=== PATIENT | female | born 1950 | race Hispanic/Latino ===

== ENCOUNTER 2017-05-29 09:00 | Day surgery (SDC) | payer OTHER ==
[2017-05-26 14:23] LABS: Urine Appearance CLEAR; Urine Bilirubin NEGATIVE (NEG); Urine Blood NEGATIVE (NEG); Urine Color YELLOW; Urine Glucose NEGATIVE (NEG); Urine Protein NEGATIVE (NEG); Urine Specific Gravity 1.015 (1.005-1.030); Urine Urobilinogen 0.2 mg/dL (0.2-1.0)
[2017-05-26 14:26] LABS: Urine Microscopic Reflex NO UMIC
[2017-05-26 14:36] LABS: Absolute Monocytes 0.7 K/uL (0.1-1.3); Absolute Neutrophil 7.6 K/uL (1.8-8.0); Basophils % 0.6 % (0-1.3); Eosinophils % 0.8 % (0-4.4); Hematocrit 42.6 % (36.0-45.0); Lymphocytes % 25.9 % (15.3-44.8); MCH 28.8 pg (27.0-35.0); MCV 88.6 fL (80-100); MPV 10.2 fL (7.6-11.3); Monocytes % 6.3 % (3.3-12.3)
[2017-05-26 14:45] LABS: Potassium 3.7 mEq/L (3.6-5.0)
[2017-05-29] MEDS ORDERED: NA CHLORIDE 0.9% 1,000 ML ONE ×3 (09:50→17:57)
[2017-05-29] MEDS ORDERED: PROPOFOL 200 MG/20 ML VIAL IV ONE ×2 (11:03→15:23)
[2017-05-29] MEDS ORDERED: MIDAZOLAM HCL 2 MG/2 ML INJ ONE (11:03)
[2017-05-29] MEDS ORDERED: LIDOCAINE 2% MPF 5 ML VIAL ONE (11:04)
[2017-05-29] MEDS ORDERED: ONDANSETRON 4 MG/2 ML VIAL ONE ×2 (11:04→16:32)
[2017-05-29] MEDS ORDERED: GLYCOPYRROLATE 0.2 MG/ML SYR ONE (11:04)
[2017-05-29] MEDS ORDERED: ROCURONIUM 50 MG/5 ML VIAL IV ONE ×2 (11:04→15:22)
[2017-05-29] MEDS ORDERED: FENTANYL CITR 250 MCG/5 ML ONE (11:04)
[2017-05-29] MEDS: CEFAZOLIN/SWI 1gm 2 GM/20 ML SYR ONE ×3 (11:33→13:25)
[2017-05-29] MEDS ORDERED: NA CHLORIDE 0.9% 100 ML IV ONE (13:11)
[2017-05-29] MEDS ORDERED: VASOPRESSIN 20 UNIT/ML VIAL ONE (13:11)
[2017-05-29] MEDS ORDERED: CEFAZOLIN/SWI 1gm 1 GM/10 ML SYR ONE (13:11)
[2017-05-29] MEDS ORDERED: EPHEDRINE SULF 50 MG/5 ML SYR ONE (14:08)
[2017-05-29] MEDS ORDERED: NEOSTIGMINE 1 MG/ML -5 ML SYRINGE ONE (14:18)
[2017-05-29] MEDS ORDERED: DEXAMETHASONE 10 MG/ML VIAL ONE (15:19)
[2017-05-29] MEDS ORDERED: KETOROLAC 30 MG/ML INJ ONE (15:20)
[2017-05-29] MEDS ORDERED: MEPERIDINE HCL 25 MG/0.5 ML ONE (16:00)
[2017-05-29] MEDS ORDERED: CEFAZOLIN SODIUM 1 GM/VIAL ONE (16:14)
[2017-05-29] MEDS: MEPERIDINE HCL 50 MG/ML AMP ONE ×2 (16:16→16:22)
[2017-05-29] MEDS ORDERED: PROMETHAZINE 25 MG/ML VIAL ONE (16:43)
[2017-05-29] MEDS ORDERED: ACETAMINOPHEN 325 MG TABLET PO PRN (16:49)
[2017-05-29] MEDS ORDERED: MORPHINE 4 MG/ML SYR IV PRN ×3 (16:49→17:00)
[2017-05-29] MEDS ORDERED: PROMETHAZINE 25 MG/ML VIAL IV PRN (16:51)
[2017-05-29] MEDS ORDERED: PROMETHAZINE 25 MG TABLET PO PRN (16:52)
[2017-05-29] MEDS ORDERED: MEPERIDINE HCL 50 MG/ML AMP ONE (17:20)
[2017-05-30] MEDS ORDERED: CEFAZOLIN/SWI 1gm 1 GM/10 ML SYR IV SCH
[2017-05-30 06:20] LABS: Absolute Lymphocytes (CBC) 2.1 K/uL (0.7-4.9); Absolute Monocytes 1.1 K/uL (0.1-1.3); Absolute Neutrophil 14.3 K/uL (1.8-8.0); Basophils % 0.6 % (0-1.3); Eosinophils % 0.7 % (0-4.4); Hematocrit 36.3 % (36.0-45.0); MCH 29.2 pg (27.0-35.0); MCV 88.7 fL (80-100); MPV 10.2 fL (7.6-11.3); Monocytes % 6.1 % (3.3-12.3); RBC Red Blood Cell Count 4.09 M/uL (3.86-4.86)
[2017-05-30] MEDS ORDERED: CEFAZOLIN SODIUM 1 GM/VIAL ONE (07:26)
[2017-05-30] MEDS ORDERED: NS 0.9% VIAL 10 ML ONE (07:26)
--- NOTE | 2017-09-08 11:00 | OP ---
Date of Procedure: 05/29/2017 Surgeon: Rosibel Santo MD Section Supervisor: Eliz Santa and Tana Brady. Preoperative Diagnoses: Uterine prolapse, rectocele, posterior enterocele, perineocele, stress urina ry incontinence. Postoperative Diagnoses: Uterine prolapse, rectocele, posterior enterocele, perineocele, stress urin omero incontinence. Procedures Performed: Right sacrospinous ligament fixation with cervicopexy/colpopexy, posterior ent erocele repair and rectocele repair, perineorrhaphy, and mid urethral sling (TVT-O and cystoscopy). Anesthesia: General endotracheal. Specimens: None. Complications: None. Estimated Blood Loss: 200. Condition: Stable. Findings: POP-Q -2, -2, -4 to 5, thin and 7, 0, +1 and -3. The patient had dense scar in the generation technologist ior wall, especially in the lower one-third on the left. The perineum was thin and widened showing a perineocele. Defect in the posterior wall was mostly in the lower aspect, lower one-third, however there was an enterocele as well. The patient had coughed and there was a bowel movement that was cleaned up and this was at the time o f the posterior repair. The patient is a 67-year-old with problems as dictated above and she did not have any postmenopausal bleeding, did not have any prior repairs. She just had obstetric injury for which she had repair at the time of delivery. Description Of Procedure: After informed consent was verified, the patient was taken back to the OR. She was given 1 g of Ancef, placed in a supine fashion on the operating table. After general anest hesia was given, she was placed in a dorsal lithotomy position using Laci stirrups. After positioni ng was checked, pelvic exam was performed, and POP-Q as above, lower abdomen, vulva, vagina, and gianni neum were prepped and draped in a sterile fashion. Grimaldo placed to drain the bladder and clamped and retracted superiorly. Two Allis clamps were placed on either side of the vestibule and the posterior midline vaginal wall t o the apex was clamped onto the cervix. Sacral spine and ischial spines were palpated prior to the s tart of the procedure and the right one was marked coming in freely and easily palpable. Dilute vasopressin 20 units in 50 cc of normal saline was injected in the perineum and the posterior midline vaginal wall. A triangular skin incision made with the scalpel, 15 blade and excised. The p osterior compartment was attempted to be accessed. However, due to the dense scar, it was not possib le easily with the help of Metzenbaum scissors, so the 15 blade was used to make the incision slightl y onto the right of the scar. Then, once the right-sided vaginal epithelium was dissected free and t he rectovaginal space was entered after passing the perineocele, then the vaginal epithelium on the l eft side was picked up after placing finger on the rectum and making sure that the thickness was appr opriate and dissection was performed dissecting the scar away from the posterior wall. There was no evidence of any rectovaginal septum in the area of this defect on the scar. So, once I went past thi s and all the vestibular posterior incision was opened up, then rectovaginal septum appeared to be in tact in the upper half of the two-thirds to half of the defect. However, due to the dissection part of it was injured as well, so I took the incision all the way up to dissect the vaginal epithelium fr om the rectovaginal septum, then on both sides all the way to the lateral wall. The bowel movement w as seen here at this time, so this was all cleaned up, reprepped adequately. Then, the right sacrosp inous ligament was dissected by accessing the perirectal space, then dissecting the ischial spine and through the medial and posterior to the ischial spine towards the coccyx, the coccygeus muscle was d issected to expose the sacrospinous ligament. Once this was done, the posterior enterocele was close d with the help of a pursestring 0 Vicryl suture. The cervix was used to identify the remnants of th e uterosacral ligament posteriorly and 2 Allis clamps were placed here. The rectovaginal septum was repaired with the help of 2-0 Vicryl in a continuous running fashion as far as there was no tension. Then, in the lowest part, it was closed with the help of 2-0 Vicryl in an interrupted fashion. Then , the perineum was dissected and the lateral aspects of the transverse perinei on the scar were broug ht together with 2-0 Vicryl in an interrupted horizontal mattress fashion. With the finger in the re ctum, 3 stitches were placed to bring this back together without getting the levators. These were al l tied down after gloves were changed. Then, I went down to the top to finish the colpopexy. The Ca raz suture was taken and lowered onto the Capio device. First suture was placed medially about 2.5 c m medial to the ischial spine on the sacrospinous ligament. Another suture of the same kind 1 cm lat eral to it. Good bites into the sacrospinous ligament were taken and these sutures were attached to the distal uterosacral on both sides and then left attached to clamps. The posterior vaginal wall cl osure was started with a 2-0 Vicryl in a continuous running fashion for about 3 cm. Then, slight tri mming of the vaginal epithelium was done. There was excellent posterior support including the perine al body support after the reconstruction. Then, the sacrospinous ligament stitches were tied down fr om the uterus all the way down to the sacrospinous ligament without any suture bridge. Once both sti tches were tied down and tails trimmed, the posterior vaginal closure was completed. Then, the perin eal skin incision was closed with the help of a 3-0 Vicryl in a subcutaneous and subcuticular fashion and tying the stitch inside the perineum. Rectovaginal exam was performed and no evidence of any tr auma to the rectum. Cystoscopy was performed and no evidence of any ureteric obstruction on the right. There were strong jets of urine from both sides. Bladder unremarkable. Grimaldo was replaced. All gloves were changed. The posterior area was completely draped. Then, the m id urethral area was held with 2 Allis clamps after placing the legs in lithotomy. Skin markings wer e done 2 cm lateral and 1 cm superior to the horizontal line dropped at the level of the external pino tus in the groin folds. Dilute vasopressin was injected, 10 cc in the midline and lateral aspects. Skin incision was made with the scalpel and flaps raised for creating a tunnel for the sling. At a 4 5-degree angle to the horizontal and vertical planes, dissection was carried to the ipsilateral shoul fozia and hugging the posterior ramus of the pubis. Obturator space was entered. Once the pop was fel t, the tract was opened up to create passage for the sling. Similar dissection was performed on the opposite side. First on the right, then on the left. Then, the kit was opened and wing guide was pl aced, retracing the tract created and spike passed without any problems. Similar dissection was perf ormed on the opposite side and the spike passed without any problems exiting at the point expected. The plastic trocars were cut. Sheaths along with the sling were held with Olivia clamps. Tensioning of the mid urethral portion was done with the help of Metzenbaum scissors. Once the plastic sheaths were pulled out, the tensioning was adequate. Metzenbaum scissors removed. After the mesh was casimiro ed and flushed, skin incisions closed with the help of Dermabond and the vaginal incision closed with the help of 3-0 Vicryl in a continuous running horizontal mattress fashion. Cysto was performed. No evidence of any trauma or foreign body in the bladder. The bladder was drai hari. Grimaldo was replaced. Vaginal packing was placed. The patient was recovered from anesthesia and she was taken to the PACU for overnight observation. NANCY/SYLVIA Voice ID: [id number] Report ID: [id number]
== END 2017-05-30 11:35 | disposition home or self-care (01) ==
LOC: OR 09:00 → 2ND-WC 18:12 → OR 18:12
PROVIDERS: ATTEND Obstetrics & Gynecology
PROC: 0JQC0ZZ Repair Pelvic Region Subcutaneous Tissue and Fascia, Open Approach (ICD-10-PCS; 2017-05-29)
PROC: 0WQNXZZ Repair Female Perineum, External Approach (ICD-10-PCS; 2017-05-29)
PROC: 0TSD0ZZ Reposition Urethra, Open Approach (ICD-10-PCS; 2017-05-29)
PROC: 0USG7ZZ Reposition Vagina, Via Natural or Artificial Opening (ICD-10-PCS; principal; 2017-05-29 10:30)
DX: N81.2 Incomplete uterovaginal prolapse (principal); N39.3 Stress incontinence (female) (male); N95.2 Postmenopausal atrophic vaginitis; E11.9 Type 2 diabetes mellitus without complications; I10 Essential (primary) hypertension; K21.9 Gastro-esophageal reflux disease without esophagitis; M06.9 Rheumatoid arthritis, unspecified; E78.00 Pure hypercholesterolemia, unspecified; Z79.82 Long term (current) use of aspirin; Z88.0 Allergy status to penicillin; Z90.49 Acquired absence of other specified parts of digestive tract; Z80.42 Family history of malignant neoplasm of prostate; Z80.0 Family history of malignant neoplasm of digestive organs; Z82.49 Family history of ischemic heart disease and other diseases of the circulatory system
CPT/HCPCS: 36415 ×2; 57250; 57282; 57288; 80048; 81003; 82962 ×2; 85025 ×2; 86850; 86900; 86901; J0690 ×4; J1100; J2175 ×3; J2250; J2405 ×2; J2550; J2710; J7030 ×3

== ENCOUNTER 2019-07-25 16:18 | Emergency (ER) | payer OTHER ==
--- OUTSIDE RECORDS SUMMARY | 2019-07-25 16:20 | XMS REPORT ---
:1950 Author Organization [facility] t Address [address] [place] [address] Dr. [address] [place] [address] Care Team Providers Name Role Phone Unavailable Unavailable Unavailable Problems Condition Condition Condition Status Onset Resolution Last Treating Co mments Source Name Details Category Date Date Treatment Clinician Date Rheumatoid Rheumatoid Problem Active [facility] arthritis Arthritis 5-04 Fami ly 00:00: Practic 00 e Hyperlipid Hyperlipid Problem Active [facility] emia emia 7-11 Family 00:00: Practic 00 e Essential Essential Problem Active Loida belkys hypertensi Hypertensi 7-11 Fa mai on on 00:00: Practic 00 e Gastroesop Gastroesop Problem Active [facility] hageal hageal 7-11 Family reflux Reflux 00:00: Practic disease Disease 00 e Allergies, Adverse Reactions, Alerts Allergy Allergy Status Severity Reaction(s) Onset Inactive Treating Comm ents Source Name Type Date Date Clinician PENICILL Allergy Active Mild to Hives [facility] INS to moderate Family substanc Practic e e Social History Smoking Status Start Date Stop Date Source Never Smoker [facility] Medications Ordered Filled Start Stop Current Ordering Indication Dosage Frequency Signature Comments Components Source Medication Medication Date Date Medication? Clinician (SIG) Name Name aspirin 81 aspirin 81 No 1 Q1D aspirin 81 [facility] mg mg mg Family tablet,estefany tablet,estefany tablet,del Practic yed release yed release ayed e Take 1 Take 1 release tablet tablet Take 1 every day every day tablet by oral by oral every day route. route. by oral route. carvedilol carvedilol No 1 BID carvedilol [facility] 6.25 mg 6.25 mg 6.25 mg Family tablet Take tablet Take tablet Practic 1 tablet 1 tablet Take 1 e twice a day twice a day tablet by oral by oral twice a route. route. day by oral route. cinacalcet cinacalcet No 1 Q1D cinacalcet [facility] 60 mg 60 mg 60 mg Family tablet Take tablet Take tablet Practic 1 tablet 1 tablet Take 1 e every day every day tablet by oral by oral every day route. route. by oral route. losartan 25 losartan 25 No 1 Q1D losartan [facility] mg tablet mg tablet 25 mg Fami ly Take 1 Take 1 tablet Pract[facility] tablet tablet Take 1 e every day every day tablet by oral by oral every day route. route. by oral route. multivitami multivitami No 1capsul Q1D multivitam [facility] n capsule n capsule e(s) in capsule Family Take 1 Take 1 Take 1 Practic capsule capsule capsule e every day every day every day by oral by oral by oral route. route. route. omeprazole omeprazole No 1capsul Q1D omeprazole [facility] 40 mg 40 mg e(s) 40 mg Family capsule,del capsule,del capsule,de Practic ayed ayed layed e release release release Take 1 Take 1 Take 1 capsule capsule capsule every day every day every day by oral by oral by oral route. route. route. simvastatin simvastatin No 1 Q1D simvastati [facility] 40 mg 40 mg n 40 mg Family tablet Take tablet Take tablet Pract[facility] 1 tablet 1 tablet Take 1 e every day every day tablet by oral by oral every day route. route. by oral route. sucralfate sucralfate No 1 QID sucralfate [facility] 1 gram 1 gram 1 gram Family tablet Take tablet Take tablet [facility] 1 tablet 4 1 tablet 4 Take 1 e times a day times a day tablet 4 by oral by oral times a route. route. day by oral route. Immunizations Ordered Immunization Filled Immunization Date Status Commen ts Source Name Name influenza, influenza, 2018-12-[address] [place] [place] injectable, injectable, 00:00:00 Practice quadrivalent quadrivalent influenza, influenza, 2017-12-08 [place] [facility] [place] injectable, injectable, 00:00:00 Practice quadrivalent quadrivalent Vital Signs Vital Name Observation Time Observation Value Comments Source Height 2019-07-12 00:00:00 67 [in_i] [facility] BMI (Body Mass 2019-07-12 00:00:00 28.7 kg/m2 [facility] Family Index) Practice Body Weight 2019-07-12 00:00:00 183 [lb_av] [facility] Procedures Procedure Date / Time Performed Performing Clinician Sourc e Appendectomy [facility] P veronica Cholecystectomy [facility] Kaitlin martin Plan of Care Planned Activity Planned Date Details Comments Source Instructions [facility] Encounters Start End Encounter Admission Attending Care Care Encounter Source Date/Time Date/Time Type Type Clinicians Facility Department ID 2019-07-12 2019-07-12 Zaina [facility] [place] - [id number] [facility] 00:00:00 00:00:00 [facility] haley tsang [employer] SUPERVISOR: Medical - Practi c [email or web address], [address] [address], [place] [address] , Ph. Results This patient has no known results.
--- OUTSIDE RECORDS SUMMARY | 2019-07-25 16:20 | XMS REPORT | Encounter Summary ---
:1950 Author Care Team Providers Name Role Phone Dr. Julio iKm Primary Care Provider Unavailable Herman Bacon Primary Care Provider [phone] Reason for Visit TELE-AWV Annual Wellness Visit Female Instructions 1. Advance directive discussed w ith patient advance care planning: car e instructions 2. Depression screening learning about depression 3. Essential hypertension carvedilol 6.25 mg tablet losartan 25 mg tablet 4. Gastroesophageal reflux disea se omeprazole 40 mg capsule,d elayed release sucralfate 1 gram tablet 5. Hyperlipidemia high cholesterol: care ins tructions simvastatin 40 mg tablet Discussion Note Completed a telephone visit with shruthi greenfield. Patient report he has enough meds currently and does not need any refills. Patient encouraged to wash hands frequently for 20 seconds, practice social distanci ng by stay home and maintaining physical space in public. Patient encouraged to [facility] if he starts having continues cough, fever and sob. Patient verbalized understanding. Plan of Care Patient Instructions It was good to speak with you parveen pichardo today for your Medicare Annual Wellness Visit. You have been provided some information on healthy nutrition, including a diet rich in fruits and vegetables, minimizing simple carbohydrates, salt, and saturated fats. I want to encourage regular cardiovascular exercise such as walking at least 30 minutes daily, 5 times per week. Please remember to schedule any prevent vipin health measures that we talked about today. You have also been provided education on fall prevention and community- based lifestyle interventions to help reduc e health risks and promote healthy livin g in your Annual Wellness folder. Screening Recommendations 1. Vaccines Pneumonia: Recommended toda y Influenza: Recommended today 2. Mammography Screening: Next Screening 3. Colorectal Cancer Screening: Colonoscopy (every 10 years) Recommended today 4. Annual D epression Screening 5. Annual Alcohol Sc reening 6. Annual Fall Risk Screening 7. Annual Health Risk Assessment Reminders Provider Appointments None recorded. Lab None recorded. Referral None recorded. Procedures None recorded. Surgeries None recorded. Imaging None recorded. Medications Name Start Date aspirin 81 mg tablet,delayed release Take 1 tablet every day by oral route. carvedilol 6.25 mg tablet Take 1 tablet twice a day by oral route. cinacalcet 60 mg tablet Take 1 tablet every day by oral route. losartan 25 mg tablet Take 1 tablet every day by oral route. multivitamin capsule Take 1 capsule every day by oral route. omeprazole 40 mg capsule,delayed release Take 1 capsule every day by oral route. simvastatin 40 mg tablet Take 1 tablet every day by oral route. sucralfate 1 gram tablet Take 1 tablet 4 times a day by oral route. Medications Administered None recorded. Vitals Height Weight BMI 5 ft 7 in 183 lbs 28.7 kg/m2 Results Lab Results None recorded. Allergies Code Code System Name Reaction Severity Status Onset Penicillins Hives Mild to Active Moderate Problems Name Status Onset Date Source Hyperlipidemia Active 09/17/2018 Essential Hypertension Active 09/17/2018 Gastroesophageal Reflux Disease Active 09/17/2018 Rheumatoid Arthritis Active 07/12/2019 Procedures Date Name Performed by Appendectomy Information not avai lable Cholecystectomy Information not avai lable Vaccine List Vaccine Type influenza, injectable, quadrivalent 12/08/2017 12/08/2018 Social History Tobacco Smoking Status Never Smoker Past Encounters 07/12/2019 Advance Directive Discussed with Patient ; Depression Screening; Essential Hypertension; Gastroesophageal Reflux Disease; Hyperlipidemia Zaina Perkins, VENDING MACHINE MECHANIC: [address] [facility], [address], [place] [address], Ph. History of Present Illness Mini Cog Reported By: Patient Functional Ability: Personal/Social/ 3 word reca ll: Your nurse or doctor will ask you to remember 3 words. In 5 m inutes, they will ask you to repeat them. Patient recalled 3 w ords Opioid Use Assessment Reported By: Patient Opioid Use Assessment:: Current Use of Opioids : no use of opioids (no further questions required) Note: I confirmed that I received verbal consent from the patient for a telemedicine visit.
This virtual visit was performed with live video and audio. Review of Systems Comprehensive General Adult ROS Reported By: Patient Constitutional: Constitutional: no fever, no night sweats, no significant weight gain, no significant weight loss, no exercise intolerance Eyes: Eyes: no dry eyes, no vision change, no irritation ENMT: Ears: no difficulty hearing, no ear pain. Nose: no frequent nosebleeds, no nose problems , no sinus problems. Mouth/Throat: no sore throat, no bleeding gums, no snoring, no dry mouth, no mouth ulcers, no oral abnorm alities, no teeth problems Cardiovascular: Cardiovascular: no chest portillo n, no arm pain on exertion, no shortness of breath when wal jesenai, no shortness of breath when lying down, no palpitations, no known heart murmur, no lightheadedness Respiratory: Respiratory: no cough, no wh eezing, no shortness of breath, no coughing up blood, no sleep apnea Gastrointestinal: Gastrointestinal: no abdomin al pain, no nausea, no vomiting, no constipation, normal appe tite, no diarrhea, not vomiting blood, no dyspepsia, no GERD Genitourinary: Genitourinary: no incontinen ce, no difficulty urinating, no hematuria, no increased freq uency Musculoskeletal: Musculoskeletal: no muscle a ches, no muscle weakness, no arthralgias/joint pain, no b ack pain, no swelling in the extremities Integumentary: Skin: no abnormal mole, no j aundice, no rashes, no laceration Neurologic: Neurologic: no loss of consc iousness, no weakness, no numbness, no seizures, no di zziness, no migraines, no headaches, no tremor Psychiatric: Psych: no depression, no sle ep disturbances, feeling safe in a relationship, no alcohol abu se, no anxiety, no hallucinations, no suicidal thoughts Endocrine: Endocrine: no fatigue Hematologic/Lymphatic: Hematologic/Lymphatic no swo llen glands, no bruising, no excessive bleeding Allergic/Immunologic: Allergy/Immunologic: no runn y nose, no sinus pressure, no itching, no hives, no freque nt sneezing Physical Exam General Adult Exam (Female) Reported By: Patient Constitutional: General Appearance: healthy- appearing, well-nourished, well-developed. Level of Dis tress: NAD. Ambulation: ambulating normally Psychiatric: Insight: good judgement. Men preeti Status: active and alert, normal mood, normal affect. Orienta tion: to time, to place, to person. Memory: recent memory normal , remote memory normal Head: Head: normocephalic, atrauma tic Eyes: Lids and Conjunctivae: non-i njected, no discharge, no pallor. Pupils: PERRLA. EOM: EOMI. V ision: peripheral vision grossly intact, acuity grossly intac t ENMT: Ears: no lesions on external ear, EACs clear, TMs clear, TM mobility normal. Hearing: no hearing loss. Nose: no lesions on external nose Neck: Neck: supple, trachea midlin e, no masses, FROM. Lymph Nodes: no cervical LAD, no supraclavic ular LAD, no axillary LAD. Thyroid: no enlargement, non-tender, no nodules Lungs: Respiratory effort: no dyspn ea. Percussion: no dullness, flatness, or hyperresonance. Auscultat ion: breath sounds normal, good air movement, CTA except as note d, no wheezing, no rales/crackles, no rhonchi Cardiovascular: Heart Auscultation: RRR, nor mal S1, normal S2, no murmurs, no rubs, no gallops. Neck vessels: no carotid bruits. Pulses including femoral / pedal: normal thro ughout Abdomen: Bowel Sounds: normal Musculoskeletal:: Motor Strength and Tone: nor mal motor strength, normal tone. Joints, Bones, and Muscles: normal movement of all extremities, no bony abnormalities, no contr actures, no malalignment, no tenderness. Extremities: no cyanosis, no edema, no varicosities, no palpable cord Neurologic: Gait and Station: normal gai t, normal station Skin: Inspection and palpation: no rash, no lesions, no ulcer, good turgor
[2019-07-25] MEDS ORDERED: MAGNE/ALUM HYDROXD 30 ML UCUP ONE (17:02)
[2019-07-25] MEDS ORDERED: FAMOTIDINE 20 MG/2 ML VIAL IV ONE (17:02)
[2019-07-25] MEDS ORDERED: LIDOCAINE VISCOUS 2% SOLN 15 ML UDC ONE (17:03)
[2019-07-25 17:38] LABS: Absolute Lymphocytes (CBC) 2.5 K/uL (0.7-4.9); Hematocrit 39.4 % (36.0-45.0); MPV 9.6 fL (7.6-11.3); RBC Red Blood Cell Count 4.47 M/uL (3.86-4.86)
[2019-07-25 17:51] LABS: Albumin 3.5 g/dL (3.4-5.0); Bilirubin Direct 0.1 mg/dL (0-0.2); Bilirubin Total 0.4 mg/dL (0.2-1.0); Potassium 3.3 mmol/L (3.5-5.1); Protein, Total 7.1 g/dL (6.4-8.2)
--- NOTE | 2019-07-25 17:55 | RAD REPORT ---
EXAM DESCRIPTION: CT - Abdomen Pelvis W Contrast - 07/25/2019 5:41 pm CLINICAL HISTORY: Abdominal pain COMPARISON: 2014 TECHNIQUE: Computed axial tomography of the abdomen pelvis was obtained. 100 cc Isovue-300 was admin istered intravenously. Oral contrast was not requested which limits evaluation of bowel. All CT scans are performed using dose optimization technique as appropriate and may include automated exposure control or mA/KV adjustment according to patient size. FINDINGS: The liver, spleen, pancreas, adrenal and left kidney appear unremarkable. Small right inés l cysts Large number of diverticula without evidence of diverticulitis. The appendix is not visualized. Cholecystectomy. The infrarenal abdominal aorta is ectatic with AP diameter of 2.8 centimeters Moderate left posterolateral structure L5-S1 extending inferiorly IMPRESSION: Moderate left posterolateral structure L5-S1 extending inferiorly may represent a disc e xtrusion. Further evaluation with nonemergent MRI recommended. Diverticulosis without evidence of diverticulitis
--- NOTE | 2019-07-25 18:09 | EDPHYS ---
Physician Documentation [facility] Name: Hannah Wick Age: 68 yrs Sex: Female : 1950 Arrival Date: 07/25/2019 Time: 16:22 Bed 15 Private MD: ED Physician Wenceslao Liang HPI: 07/24 17:07 This 68 yrs old Female presents to ER via Unassigned with complaints of rn Abdominal Pain, Vomiting. 17:07 The patient presents to the emergency department with nausea, vomiting, abdominal pain. rn Onset: The symptoms/episode began/occurred 12 day(s) ago. Possible causes: unknown. The symptoms are aggravated by food , The symptoms are alleviated by nothing. Severity of symptoms: At their worst the symptoms were moderate in the emergency department the symptoms have improved. The patient has not experienced similar symptoms in the past. The patient has been recently seen by a physician:. Reports had colonoscopy [address] Petty/Marcus, reports some polyps removed, a couple of days after begna having abd pain, seen at ER, given abx and sent home. Seen again at another ER a day or so later again for vomiting and sore throat, given abx again for pharyngitis, then seen by pcp a couple of days ago and told had thrush, given nystatin. No blood in stool or emesis. Taking antacid medication. No chest pain/sob. . Historical: - Allergies: 18:16 PENICILLINS; ls4 - Immunization history:: Adult Immunizations up to date. - Family history:: not pertinent. - Social history:: Smoking status: Patient denies any tobacco usage or history of. - Hospitalizations: : No recent hospitalization is reported. ROS: 17:07 Constitutional: Negative for fever, chills, and weight loss, Eyes: Negative for injury, rn pain, redness, and discharge, Neck: Negative for injury, pain, and swelling, Cardiovascular: Negative for chest pain, palpitations, and edema, Respiratory: Negative for shortness of breath, cough, wheezing, and pleuritic chest pain, Abdomen/GI: Negative for diarrhea, + constipation, MS/Extremity: Negative for injury and deformity, Skin: Negative for injury, rash, and discoloration, Neuro: Negative for headache, numbness, tingling, and seizure. Exam: 17:07 Constitutional: This is a well developed, well nourished patient who is awake, rn alert,ambulatory to room without difficulty or assistance Head/Face: Normocephalic, atraumatic. Cardiovascular: Regular rate and rhythm. No pulse deficits. Respiratory: No increased work of breathing, no retractions or nasal flaring. Abdomen/GI: soft, mild epigastric tenderness, no rebound Skin: Warm, dry MS/ Extremity: Pulses equal, no cyanosis. Neurovascular intact. Full, normal range of motion. Equal circumference. Neuro: Awake and alert, GCS 15, oriented to person, place, time, and situation. Cranial nerves II-XII grossly intact. Motor strength 5/5 in all extremities. Sensory grossly intact. Cerebellar exam normal. Normal gait. 18:10 ECG was reviewed by the Attending Physician. rn Vital Signs: 16:35 BP 167 / 98; Pulse 82; Resp 18; Temp 98.4; Pulse Ox 96% on R/A; Weight 82.55 kg; Height ls4 5 ft. 7 in. (170.18 cm); Pain 3/10; 17:30 BP 148 / 82; Pulse 78; Resp 18; Pulse Ox 99% on R/A; Pain 3/10; ls4 16:35 Body Mass Index 28.50 (82.55 kg, 170.18 cm) ls4 MDM: 16:36 Patient medically screened. rn 18:07 Differential diagnosis: Nonspecific abd pain, gastritis, pancreatitis, gastroenteritis. rn Data reviewed: vital signs, nurses notes, lab test result(s), EKG, radiologic studies, CT scan, and as a result, I will discharge patient. Counseling: I had a detailed discussion with the patient and/or guardian regarding: the historical points, exam findings, and any diagnostic results supporting the discharge/admit diagnosis, lab results, radiology results, the need for outpatient follow up, to return to the emergency department if symptoms worsen or persist or if there are any questions or concerns that arise at home. Response to treatment: the patient's condition has returned to base line, the patient is now symptom free, and as a result, I will discharge patient. Special discussion: I discussed with the patient/guardian in detail that at this point there is no indication for admission to the hospital. It is understood, however, that if the symptoms persist or worsen the patient needs to return immediately for re-evaluation. Based on the history and exam findings, there is no indication for further emergent testing or inpatient evaluation. I discussed with the patient/guardian the need to see the continuous improvement coach for further evaluation of the symptoms. ED course: Symptoms resolved after GI cocktail and pepcid, feels much better, no acute findings on ct abdomen, instructed to continue antacids and supplement with tums/maalox if needed and to f/u with GI doctor. Does not need to take the abx given as they likely made symptoms worse, but can continue the thrush medication recently prescribed. . 07/24 16:52 Order name: Basic Metabolic Panel; Complete Time: 17:53 rn 07/24 16:52 Order name: CBC with Diff; Complete Time: 17:53 rn 07/24 16:52 Order name: Hepatic Function; Complete Time: 17:53 rn 07/24 16:52 Order name: Lipase; Complete Time: 17:53 rn 07/24 16:52 Order name: CT Abd/Pelvis - IV Contrast Only; Complete Time: 17:57 rn 07/24 18:36 Order name: CREATININE WHOLE BLOOD; Complete Time: 18:43 EDMS 07/24 16:52 Order name: IV Saline Lock; Complete Time: 17:42 rn 07/24 16:52 Order name: Labs collected and sent; Complete Time: 17:42 rn 07/24 16:52 Order name: EKG; Complete Time: 16:53 rn 07/24 16:52 Order name: EKG - Nurse/Tech; Complete Time: 17:41 rn EC:10 Rate is 68 beats/min. Rhythm is regular. QRS [place] is Normal. [place] interval is normal. QRS rn interval is normal. QT interval is normal. No Q waves. T waves are Normal. No ST changes noted. Clinical impression: Normal ECG. Interpreted by me. Reviewed by me. Administered Medications: 17:10 Drug: GI Cocktail without - (Maalox Suspension 30 ml, Lidocaine Liquid 2 % 15 ls4 ml) Route: PO; 17:30 Follow up: Response: No adverse reaction; Marked relief of symptoms ls4 17:10 Drug: Pepcid 20 mg Route: IVP; Site: right antecubital; ls4 17:30 Follow up: Response: No adverse reaction; Marked relief of symptoms ls4 Disposition: 05/17/20 18:09 Discharged to Home. Impression: Gastritis, unspecified. - Condition is Stable. - Discharge Instructions: Abdominal Pain, Adult, Gastritis, Adult. - Prescriptions for Zofran ODT 4 mg Oral tablet,disintegrating - place 1 tablet by TRANSLINGUAL route every 8 hours As needed; 15 tablet. - Medication Reconciliation Form, Thank You Letter, Antibiotic Education, Prescription Opioid Use form. - Follow up: Private Physician; When: As needed; Reason: Recheck today's complaints, Re-evaluation by your physician. - Problem is new. - Symptoms have improved. Signatures: Dispatcher [employer] EDMS Wenceslao Liang MD MD rn Stewart, Lisa, RN RN ls4 Corrections: (The following items were deleted from the chart) 18:53 18:09 07/25/2019 18:09 Discharged to Home. Impression: Gastritis, unspecified. ls4 Condition is Stable. Forms are Medication Reconciliation Form, Thank You Letter, Antibiotic Education, Prescription Opioid Use. Follow up: Private Physician; When: As needed; Reason: Recheck today's complaints, Re-evaluation by your physician. Problem is new. Symptoms have improved. rn
--- NOTE | 2019-07-25 18:09 | ER ---
Nurse's Notes [facility] Name: Hannah Wick Age: 68 yrs Sex: Female : 1950 Arrival Date: 07/25/2019 Time: 16:22 Bed 15 Private MD: Diagnosis: Gastritis, unspecified Presentation: 07/24 16:35 Chief complaint: Patient states: ABDOMINAL PAIN SINCE COLONOSCOPY ON JULY 12. PT STATES ls4 DOCTOR TOLD HER HE REMOVED HALF HER COLON WITH CANCER. UPON FURTHER QUESTION THAT WAS CLARIFIED HE REMOVED POLYPS. PT STATES HER SISTER BROTHER AND MOTHER ALL OF CANCERS OF THE GI TRACT. PT IS IN NO ACUTE DISTRESS, BUT ADMITS TO ANXIETY. Coronavirus screen: Proceed with normal triage. Patient denies a cough. Patient denies shortness of breath or difficulty breathing. Patient denies measured and/or subjective temperature greater than 100.4F prior to today's visit. Patient denies travel on a cruise ship or to a country the [facility] currently lists as an affected area. Patient denies contact with known and/or suspected case of COVID-19. Ebola Screen: No symptoms or risks identified at this time. Initial Sepsis Screen: Does the patient meet any 2 criteria? No. Patient's initial sepsis screen is negative. Does the patient have a suspected source of infection? No. Patient's initial sepsis screen is negative. Risk Assessment: Do you want to hurt yourself or someone else? Patient reports no desire to harm self or others. Onset of symptoms was July 13, 2019. Care prior to arrival: None. Activity prior to arrival: None. 16:35 Method Of Arrival: Ambulatory ls4 16:35 Acuity: MAR[place] 3 ls4 Triage Assessment: 16:35 General: Appears in no apparent distress. Behavior is calm, cooperative. ls4 16:35 Pain: Complains of pain in abdomen Pain currently is 3 out of 10 on a pain scale. ls4 Neuro: No deficits noted. Cardiovascular: No deficits noted. Respiratory: No deficits noted. Historical: - Allergies: 18:16 PENICILLINS; ls4 - Immunization history:: Adult Immunizations up to date. - Family history:: not pertinent. - Social history:: Smoking status: Patient denies any tobacco usage or history of. - Hospitalizations: : No recent hospitalization is reported. Screenin:35 Abuse screen: Denies threats or abuse. Denies injuries from another. Nutritional ls4 screening: No deficits noted. Tuberculosis screening: No symptoms or risk factors identified. Fall Risk None identified. Assessment: 16:35 General: Appears in no apparent distress. Behavior is calm, cooperative. ls4 16:35 Pain: Complains of pain in abdomen. Neuro: No deficits noted. Cardiovascular: No ls4 deficits noted. Respiratory: No deficits noted. GI: Bowel sounds present X 4 quads. Abd is soft and non tender X 4 quads. Reports lower abdominal pain, upper abdominal pain, normal bowel habits, tolerance of fluids, tolerance of food. : No deficits noted. No signs and/or symptoms were reported regarding the genitourinary system. Derm: Skin is intact, is healthy with good turgor, Skin is dry, Skin is normal. Musculoskeletal: No deficits noted. No signs and/or symptoms reported regarding the musculoskeletal system. 17:45 Reassessment: Patient appears in no apparent distress at this time. Patient and/or ls4 family updated on plan of care and expected duration. Pain level reassessed. Patient is alert, oriented x 3, equal unlabored respirations, skin warm/dry/pink. Patient states feeling better. Patient states symptoms have improved. Vital Signs: 16:35 BP 167 / 98; Pulse 82; Resp 18; Temp 98.4; Pulse Ox 96% on R/A; Weight 82.55 kg; Height ls4 5 ft. 7 in. (170.18 cm); Pain 3/10; 17:30 BP 148 / 82; Pulse 78; Resp 18; Pulse Ox 99% on R/A; Pain 3/10; ls4 16:35 Body Mass Index 28.50 (82.55 kg, 170.18 cm) ls4 ED Course: 16:22 Patient arrived in ED. as 16:35 No apparent distress. ls4 16:35 Patient has correct armband on for positive identification. Bed in low position. Call ls4 light in reach. Side rails up X 1. Pulse ox on. NIBP on. Warm blanket given. Verbal reassurance given. Diet: Patient is NPO. 16:35 Arm band placed on. ls4 16:35 No provider procedures requiring assistance completed. Inserted saline lock: 18 gauge ls4 in right antecubital area, using aseptic technique. Blood collected. 16:36 Wenceslao Liang MD is Attending Physician. rn 16:40 Mercedez Ponce, RN is Primary Nurse. ls4 17:41 CT Abd/Pelvis - IV Contrast Only In Process Unspecified. EDMS 17:46 Triage completed. ls4 18:20 IV discontinued, intact, bleeding controlled, No redness/swelling at site. Pressure ls4 dressing applied. Administered Medications: 17:10 Drug: GI Cocktail without - (Maalox Suspension 30 ml, Lidocaine Liquid 2 % 15 ls4 ml) Route: PO; 17:30 Follow up: Response: No adverse reaction; Marked relief of symptoms ls4 17:10 Drug: Pepcid 20 mg Route: IVP; Site: right antecubital; ls4 17:30 Follow up: Response: No adverse reaction; Marked relief of symptoms ls4 Outcome: 18:09 Discharge ordered by . rn 18:53 Patient left the ED. ls4 18:53 Discharged to home ambulatory. ls4 18:53 Condition: stable 18:53 Discharge instructions given to patient, family, PT WAITED FOR RIDE IN ROOM. Instructed on discharge instructions, follow up and referral plans. safety practices, Demonstrated understanding of instructions, follow-up care, medications, Prescriptions given X 1. Signatures: Dispatcher [employer] EDMS Elizabeth Connell as Wenceslao Liang MD MD rn Stewart, Lisa, VINNIE RN ls4 Corrections: (The following items were deleted from the chart) 21:58 16:35 BP 167 / 98; Pulse 82bpm; Resp 18bpm; Pulse Ox 96% RA; Temp 98.4F; 82.55 kg; ls4 Height 5 ft. 7 in.; BMI: 28.5; Pain 0/10; ls4
[2019-07-25 19:13] VITALS: BP 167/98; TEMP 98.4; O2SAT 96
--- NOTE | 2019-07-27 07:03 | EKG ---
Test Date: 2019-07-25 Test Time: 17:27:51 Mechanic Insulator: BERNABE MEASUREMENT RESULTS: Intervals: Rate: 68 OK: 182 QRSD: 74 QT: 388 QTc: 412 [place]: P: 73 OK: 182 QRS: 3 T: 15 INTERPRETIVE STATEMENTS: Normal sinus rhythm Normal ECG No previous ECG available for comparison Electronically Signed On 07-27-19 07:00:31 CDT by Leodan Maguire
== END 2019-07-25 18:53 | disposition home or self-care (01) ==
LOC: ER 16:18
DX: K29.70 Gastritis, unspecified, without bleeding (principal); Z88.0 Allergy status to penicillin
CPT/HCPCS: 93005; 85025; 80048; 36415; 82565; 80076; 83690; 74177; 96374; 99284; Q9967

== ENCOUNTER 2019-11-26 13:31 | Emergency (ER) | payer OTHER ==
--- OUTSIDE RECORDS SUMMARY | 2019-11-26 13:33 | XMS REPORT | Continuity of Care Document ---
:1950 Author Organization [facility] t Address [address] [place] [address] Care Team Providers Name Role Phone Yoana STARKP Attending Clinician Saray Workman Attending Clinician Unavailable Lab, Fam Pob I Attending Clinician Unavailable Doctor Unassigned, Name Attending Clinician Unavailable Problems Condition Condition Condition Status Onset Resolution Last Treating Co mments Source Name Details Category Date Date Treatment Clinician Date Hyperlipid Hyperlipid Problem Active 2019-0 [facility] emia emia 7-11 Family 00:00: Practic 00 e Essential Essential Problem Active 2019-0 Loida belkys hypertensi Hypertensi 7-11 Fa mai on on 00:00: Practic 00 e Gastroesop Gastroesop Problem Active 2019-0 [facility] hageal hageal 7-11 Family reflux Reflux 00:00: Practic disease Disease 00 e Primary [facility] Diagnosis [facility] right [facility] Primary Primary Diagnosis [facility] left knee left knee l [facility] Pain, Pain, Diagnosis Active [facility] Pain, Pain, Diagnosis Active [facility], left knee, left Me moria l [facility] Allergies, Adverse Reactions, Alerts Allergy Allergy Status Severity Reaction(s) Onset Inactive Treating Comm ents Source Name Type Date Date Clinician Peniclli Adverse Active Info Not [facility] Reaction [facility] PENICILL Allergy Active Mild to Hives Vill[facility] INS to moderate Family substanc Practic e e Social History Smoking Status Start Date Stop Date Source Never Smoker [facility] Medications Ordered Filled Start Stop Current Ordering Indication Dosage Frequency Signature Comments Components Source Medication Medication Date Date Medication? Clinician (SIG) Name Name Oseltamivir Oseltamivir Yes Arash not [facility] Phosphate Phosphate [facility] defined [facility] ASA ASA Yes Arash not [facility] defined [facility] Sucralfate Sucralfate Yes Arash not [facility] Cinacalcet Cinacalcet Yes Arash not [facility] HCl HCl Griffith defined [facility] potassium potassium Yes Arash not [facility] Fish Oil Fish Oil Yes Arash not [facility] Omeprazole Omeprazole Yes Arash not [facility] Losartan Losartan Yes Arash not [facility] Potassium Potassium [facility] defined [facility] Coreg Coreg Yes Arash not [facility] Estradiol Estradiol Yes Arash not [facility] Clotrimazol Clotrimazol Yes Arash not [facility] e e [facility] defined [facility] Simvastatin Simvastatin Yes Arash not [facility] aspirin 81 aspirin 81 No 1 Q1D aspirin 81 Village mg mg mg Family tablet,estefany tablet,estefany tablet,del Practic yed release yed release ayed e Take 1 Take 1 release tablet tablet Take 1 every day every day tablet by oral by oral every day route. route. by oral route. azithromyci azithromyci No azithromyc [facility] n 250 mg n 250 mg in 250 mg Fa mai tablet tablet tablet Practic e azithromyci azithromyci No azithromyc [facility] n 500 mg n 500 mg in 500 mg Fa mai tablet tablet tablet Practic e Boostrix Boostrix No Boostrix Loida belkys Tdap 2.5 Lf Tdap 2.5 Lf Tdap 2.5 Family unit-8 unit-8 Lf unit-8 Practi c mcg-5 mcg-5 mcg-5 e Lf/0.5 mL Lf/0.5 mL Lf/0.5 mL intramuscul intramuscul intramuscu ar syringe ar syringe lar syringe carvedilol carvedilol No carvedilol [facility] 6.25 mg 6.25 mg 6.25 mg Family tablet Take tablet Take tablet Practic 1 tablet 1 tablet Take 1 e twice a day twice a day tablet by oral by oral twice a route. route. day by oral route. cinacalcet cinacalcet No cinacalcet [facility] 30 mg 30 mg 30 mg Family tablet tablet tablet Practic e cinacalcet cinacalcet No cinacalcet [facility] 60 mg 60 mg 60 mg Family tablet Take tablet Take tablet Practic 1 tablet 1 tablet Take 1 e every day every day tablet by oral by oral every day route. route. by oral route. ciprofloxac ciprofloxac No ciprofloxa [facility] in 500 mg in 500 mg morro 500 mg Family tablet tablet tablet Practic e cyclobenzap cyclobenzap No cyclobenza [facility] rine 5 mg rine 5 mg bridget 5 mg Family tablet tablet tablet Practic e estradiol estradiol No estradiol [facility] 0.01% (0.1 0.01% (0.1 0.01% (0.1 Family mg/gram) mg/gram) mg/gram) Pra ctic vaginal vaginal vaginal e cream cream cream levofloxaci levofloxaci No levofloxac [facility] n 500 mg n 500 mg in 500 mg Fa mai tablet tablet tablet Practic e losartan 25 losartan [address] [facility] mg tablet mg tablet 25 mg Fami ly Take 1 Take 1 tablet Practic tablet tablet Take 1 e every day every day tablet by oral by oral every day route. route. by oral route. losartan 50 losartan [address] [facility] mg-hydrochl mg-hydrochl 50 F amily orothiazide orothiazide mg-hydroch Practic 12.5 mg 12.5 mg lorothiazi e tablet tablet de 12.5 mg tablet metronidazo metronidazo No metronidaz [facility] le 500 mg le 500 mg ole 500 mg Family tablet tablet tablet Practic e multivitami multivitami No 1capsul Q1D multivitam Village n capsule n capsule e(s) in capsule Family Take 1 Take 1 Take 1 Practic capsule capsule capsule e every day every day every day by oral by oral by oral route. route. route. nystatin nystatin No nystatin Loida belkys 100,000 100,000 100,000 Family unit/mL unit/mL unit/mL Practi c oral oral oral e suspension suspension suspension omeprazole omeprazole No omeprazole [facility] 40 mg 40 mg 40 mg Family capsule,del capsule,del capsule,de Practic ayed ayed layed e release release release Take 1 Take 1 Take 1 capsule capsule capsule every day every day every day by oral by oral by oral route. route. route. ondansetron ondansetron No ondansetro [facility] 8 mg 8 mg n 8 mg Family disintegrat disintegrat disintegra Practic ing tablet ing tablet ting e tablet ondansetron ondansetron No ondansetro [facility] HCl 4 mg HCl 4 mg n HCl 4 mg F amily tablet tablet tablet Practic e pantoprazol pantoprazol No pantoprazo [facility] e 40 mg e 40 mg le 40 mg Famil y tablet,estefany tablet,estefany tablet,del Practic yed release yed release ayed e release simvastatin simvastatin No [facility] 40 mg n 40 mg Family tablet Take tablet Take tablet Practic 1 tablet 1 tablet Take 1 e every day every day tablet by oral by oral every day route. route. by oral route. sucralfate sucralfate No sucralfate [facility] 1 gram 1 gram 1 gram Family tablet Take tablet Take tablet Practic 1 tablet 4 1 tablet 4 Take 1 e times a day times a day tablet 4 by oral by oral times a route. route. day by oral route. Suprep Suprep No Suprep [facility] Bowel Prep Bowel Prep Bowel Prep Family Kit 17.5 Kit 17.5 Kit 17.5 Pra ctic gram-3.13 gram-3.13 gram-3.13 e gram-1.6 gram-1.6 gram-1.6 gram oral gram oral gram oral solution solution solution Immunizations Ordered Immunization Filled Immunization Date Status Commen ts Source Name Name influenza, influenza, 2018-12-08 Completed [facility] injectable, injectable, 00:00:00 Practice quadrivalent quadrivalent influenza, influenza, 2017-12-08 Completed [facility] injectable, injectable, 00:00:00 Practice quadrivalent quadrivalent Vital Signs Vital Name Observation Time Observation Value Comments Source Height 2019-11-19 00:00:00 67 [in_i] [facility] Practice Height 2019 00:00:00 67 [in_i] [facility] Height 2019-07-12 00:00:00 67 [in_i] [facility] Practice BMI (Body Mass 2019-07-12 00:00:00 28.7 kg/m2 Vill e Family Index) Practice Body Weight 2019-07-12 00:00:00 183 [lb_av] [facility] Practice Procedures Procedure Date / Time Performed Performing Clinician Sourc e Appendectomy [facility] P ractice Cholecystectomy [facility] Plan of Care Planned Activity Planned Date Details Comments Source Future Appointment 2020-05-20 00:00:00 [facility], [address]; [address] [address], [place] [address] Encounters Start End Encounter Admission Attending Care Care Encounter Source Date/Time Date/Time Type Type Clinicians Facility Department ID 2019-11-19 2019-11-19 Zaina [facility] [place] - [id number] V ill[facility] 00:00:00 00:00:[address] [facility] Fam haley o, ASSISTANT TO THE DEAN: Medical - Practi c [email or web address], [address] [address], [place] [address] , Ph. 2019-09-28 2019-09-28 Telephone Yoana [facility] [id number] 00:00:00 00:00:00 [facility] [id number] [place] [id number] Professio [phone] nal [address] 2019-09-27 2019-09-27 Telephone PACHECO Workman [id number] 00:00:00 00:00:00 Luann IRWIN [id number] [facility] [id number] 2019-09-25 2019-09-25 Laboratory Lab, [facility] [id number] 14:12:55 14:32:55 Only Fam Pob I Health [id number] [place] [id number] Profess [phone] nal [address] 2019-09-25 2019-09-25 Letter Doctor PACHECO [id number] 00:00:00 00:00:00 (Out) Unassigned, ALIDA [id number] [facility] [id number] 2019-09-25 2019-09-25 Letter Doctor PACHECO [id number] 00:00:00 00:00:00 (Out) Unassigned, ALIDA [id number] [facility] [id number] 2019 2019 [facility] [place] - [id number] V illage 00:00:00 00:00:00 [facility] haley tsang ASSISTANT TO THE DEAN: Medical - Practi c [email or web address], [place] [address] , Ph. 2019-07-12 2019-07-12 [facility] [place] - [id number] V illage 00:00:00 00:00:00 [facility] haley tsang ASSISTANT TO THE DEAN: Medical - Practi c [address] [email or web address] [address], [place] [address] , Ph. 2019-05-20 2019-05-20 Outpatient Jessica Rosa [id number] [facility] 09:15[facility]00 09[facility] 2019-05-13 2019-05-13 [facility] [id number] [facility] 09:00[facility]00 09:00[facility]00 [facility] 2019-04-15 2019-04-15 Out[facility] Jessicat [id number] [facility] [address] 15:59:00 15:59:00 [facility] 2019-04-15 2019-04-15 Outpatient Jessica Rosa [id number] [facility] 08:45:00 08:45:00 [facility] Results This patient has no known results.
--- NOTE | 2019-11-26 14:43 | RAD REPORT ---
EXAM DESCRIPTION: RAD - Knee Right 3 View - 11/26/2019 2:34 pm CLINICAL HISTORY: PAIN COMPARISON: Knee Right 3 View dated 04/09/2016; Knee Right 2 View dated 01/07/2012 FINDINGS: Prominent osteoarthritic changes are noted, greatest in the lateral joint compartment. An acute fracture is not seen. Trace suprapatellar joint effusion.
--- NOTE | 2019-11-26 14:46 | RAD REPORT ---
EXAM DESCRIPTION: CT - CTHCSPWOC - 11/26/2019 2:38 pm CLINICAL HISTORY: Trauma, head and neck injury. fall;Pain COMPARISON: No comparisons TECHNIQUE: Axial 5 mm thick images of the head were obtained. Axial 2 mm thick images of the cervical spine were obtained with sagittal and coronal reconstruction images generated and reviewed. All CT scans are performed using dose optimization technique as appropriate and may include automated exposure control or mA/KV adjustment according to patient size. FINDINGS: CT HEAD WITHOUT CONTRAST: No acute hemorrhage, hydrocephalus or extra-axial collection is identified.No areas of brain edema or midline shift. Trace fluid is seen in the inferior aspect of both mastoid air cells.Paranasal sinuses and mastoids o therwise clear.The calvarium is intact. CT CERVICAL SPINE WITHOUT CONTRAST: No fracture or subluxation.Mild lower cervical degenerative changes.No prevertebral soft tissues swel ling is identified. IMPRESSION: No acute intracranial or cervical spine findings.
--- NOTE | 2019-11-26 16:00 | EDPHYS ---
Physician Documentation [facility] Name: Hannah Wick Age: 69 yrs Sex: Female : 1950 Arrival Date: 11/26/2019 Time: 13:35 Bed 5 Private MD: ED Physician Zhang Garcia HPI: 11/25 14:14 This 69 yrs old Female presents to ER via Wheelchair with complaints of Fall kdr Injury. 14:14 Details of fall: The patient fell from an upright position, while standing, while kdr walking. Onset: The symptoms/episode began/occurred acutely, suddenly, just prior to arrival. Associated injuries: The patient sustained injury to the head, abrasion, contusion, right knee, contusion, painful injury. Severity of symptoms: At their worst the symptoms were mild, in the emergency department the symptoms are unchanged. The patient has not experienced similar symptoms in the past. The patient has not recently seen a physician. The patient was walking and tripped on the carpet or her own feet, she is not sure.. Historical: - Allergies: 13:37 PENICILLINS; sv - Home Meds: 16:59 losartan-hydrochlorothiazide 50-12.5 mg Oral tab 1 tab once daily [Active]; omeprazole bp 40 mg Oral cpDR 1 cap once daily [Active]; Pylera 140-125-125 mg Oral cap 3 caps 4 times per day [Active]; simvastatin 40 mg Oral tab 1 tab once daily [Active]; - PMHx: 13:37 Hyperlipidemia; Hypertension; sv - Immunization history:: Adult Immunizations. - Social history:: Smoking status: . - Immunization history: Last tetanus immunization: unknown. ROS: 14:14 Constitutional: Negative for fever, chills, and weight loss, Eyes: Negative for injury, kdr pain, redness, and discharge, Neck: Negative for injury, pain, and swelling, Cardiovascular: Negative for chest pain, palpitations, and edema, Respiratory: Negative for shortness of breath, cough, wheezing, and pleuritic chest pain, Abdomen/GI: Negative for abdominal pain, nausea, vomiting, diarrhea, and constipation, Back: Negative for injury and pain, : Negative for injury, bleeding, discharge, and swelling, Skin: Negative for injury, rash, and discoloration, Neuro: Negative for headache, weakness, numbness, tingling, and seizure activity. Psych: Negative for depression, anxiety, suicide ideation, homicidal ideation, and hallucinations, Allergy/Immunology: Negative for hives, rash, and allergies, Endocrine: Negative for neck swelling, polydipsia, polyuria, polyphagia, and marked weight changes, Hematologic/Lymphatic: Negative for swollen nodes, abnormal bleeding, and unusual bruising. 14:14 MS/extremity: Positive for abrasion, pain, tenderness, of the right knee. 14:14 Skin: Positive for abrasion(s), hematoma, of the left supraorbital ridge. Exam: 14:14 Constitutional: This is a well developed, well nourished patient who is awake, alert, kdr and in no acute distress. Head/Face: Normocephalic, atraumatic except for contusion over left eye laterally Eyes: Pupils equal round and reactive to light, extra-ocular motions intact. Lids and lashes normal. Conjunctiva and sclera are non-icteric and not injected. Cornea within normal limits. Periorbital areas with no swelling, redness, or edema. Neck: Trachea midline, no thyromegaly or masses palpated, and no cervical lymphadenopathy. Supple, full range of motion without nuchal rigidity, or vertebral point tenderness. No Meningismus. Chest/axilla: Normal chest wall appearance and motion. Nontender with no deformity. No lesions are appreciated. Cardiovascular: Regular rate and rhythm with a normal S1 and S2. No gallops, murmurs, or rubs. Normal PMI, no JVD. No pulse deficits. Respiratory: Lungs have equal breath sounds bilaterally, clear to auscultation and percussion. No rales, rhonchi or wheezes noted. No increased work of breathing, no retractions or nasal flaring. Abdomen/GI: Soft, non-tender, with normal bowel sounds. No distension or tympany. No guarding or rebound. No evidence of tenderness throughout. Back: No spinal tenderness. No costovertebral tenderness. Full range of motion. Skin: Warm, dry with normal turgor. Normal color with no rashes, no lesions, and no evidence of cellulitis. MS/ Extremity: Pulses equal, no cyanosis. Neurovascular intact. Full, normal range of motion. Neuro: Awake and alert, GCS 15, oriented to person, place, time, and situation. Cranial nerves II-XII grossly intact. Motor strength 5/5 in all extremities. Sensory grossly intact. Cerebellar exam normal. Normal gait. Psych: Awake, alert, with orientation to person, place and time. Behavior, mood, and affect are within normal limits. Vital Signs: 13:38 BP 145 / 86; Pulse 89; Resp 20; Temp 98.9(TE); Pulse Ox 100% ; Weight 83.46 kg; Height sv 5 ft. 7 in. (170.18 cm); 14:00 BP 173 / 95; Pulse 72; Resp 12; Pulse Ox 100% ; bp 15:00 BP 165 / 87; Pulse 61; Resp 13; Pulse Ox 100% ; bp 16:00 BP 131 / 68; Pulse 63; Resp 21; Pulse Ox 100% ; bp 13:38 Body Mass Index 28.82 (83.46 kg, 170.18 cm) sv [place] Coma Score: 13:39 Eye Response: spontaneous(4). Verbal Response: oriented(5). Motor Response: obeys sv commands(6). Total: 15. Trauma Score (Adult): 13:39 Eye Response: spontaneous(1); Verbal Response: oriented(1); Motor Response: obeys sv commands(2); Systolic BP: > 89 mm Hg(4); Respiratory Rate: 10 to 29 per min(4); [place] Score: 15; Trauma Score: 12 MDM: 15:59 Patient medically screened. kdr 19:42 Data reviewed: vital signs, nurses notes, lab test result(s), radiologic studies. kdr Counseling: I had a detailed discussion with the patient and/or guardian regarding: the historical points, exam findings, and any diagnostic results supporting the discharge/admit diagnosis, lab results, radiology results, the need for outpatient follow up. 11/25 14:14 Order name: CT Head C Spine; Complete Time: 15:57 kdr 11/25 14:14 Order name: Knee Right 3 View XRAY; Complete Time: 15:57 kdr 11/25 15:58 Order name: Kamari wrap-joint: Right knee; Complete Time: 16:49 kdr Administered Medications: No medications were administered Disposition: 11/26/19 15:59 Discharged to Home. Impression: Pain in right knee, Superficial injury of head, Other slipping, tripping and stumbling and falls. - Condition is Stable. - Discharge Instructions: Musculoskeletal Pain, Fall Prevention in the Home, Dkph-[id number], Head Injury, Adult, [id number], Knee Pain, [id number]. - Prescriptions for Ibuprofen 600 mg Oral Tablet - take 1 tablet by ORAL route every 6 hours As needed take with food; 30 tablet. - Medication Reconciliation Form, Thank You Letter form. - Follow up: Private Physician; When: 2 - 3 days; Reason: If symptoms return, Further diagnostic work-up, Recheck today's complaints, Continuance of care, Re-evaluation by your physician. - Problem is new. - Symptoms have improved. Signatures: Dispatcher [employer] EDNeena Shah RN RN sv Zhang Garcia MD MD kdr Peltier, Brian, RN RN bp Corrections: (The following items were deleted from the chart) 16:59 15:59 11/26/2019 15:59 Discharged to Home. Impression: Pain in right knee; Superficial bp injury of head; Other slipping, tripping and stumbling and falls. Condition is Stable. Forms are Medication Reconciliation Form, Thank You Letter, Antibiotic Education, Prescription Opioid Use. Follow up: Private Physician; When: 2 - 3 days; Reason: If symptoms return, Further diagnostic work-up, Recheck today's complaints, Continuance of care, Re-evaluation by your physician. Problem is new. Symptoms have improved. kdr
--- NOTE | 2019-11-26 16:00 | ER ---
Nurse's Notes [facility] Name: Hannah Wick Age: 69 yrs Sex: Female : 1950 Arrival Date: 11/26/2019 Time: 13:35 Bed 5 Private MD: Diagnosis: Pain in right knee;Superficial injury of head;Other slipping, tripping and stumbling and falls Presentation: 11/25 13:36 Chief complaint: Patient states: slipped and fell today onto the concrete on the left sv side of her head and c/o right knee pain. Care prior to arrival: None. Mechanism of Injury: Fall from standing position. Trauma event details: Injury occurred in the [facility], Injury occurred: in a public building. Injury occurred: November 26, 2019. 13:36 Method Of Arrival: Wheelchair sv 13:36 Acuity: MARIPOSA 3 sv 13:38 Coronavirus screen: Client denies travel out of the [place] in the last 14 days. At this sv time, the client does not indicate any symptoms associated with coronavirus-19. Ebola Screen: No symptoms or risks identified at this time. Initial Sepsis Screen: Does the patient meet any 2 criteria? No. Patient's initial sepsis screen is negative. Does the patient have a suspected source of infection? No. Patient's initial sepsis screen is negative. Risk Assessment: Do you want to hurt yourself or someone else? Patient reports no desire to harm self or others. Onset of symptoms was November 26, 2019. Trauma Activation: Not Applicable Physician: ED Physician; Name: ; Notified At: ; Arrived At: Physician: General Surgeon; Name: ; Notified At: ; Arrived At: Physician: Radiology; Name: ; Notified At: ; Arrived At: Physician: Respiratory; Name: ; Notified At: ; Arrived At: Physician: Lab; Name: ; Notified At: ; Arrived At: Historical: - Allergies: 13:37 PENICILLINS; sv - Home Meds: 16:59 losartan-hydrochlorothiazide 50-12.5 mg Oral tab 1 tab once daily [Active]; omeprazole bp 40 mg Oral cpDR 1 cap once daily [Active]; Pylera 140-125-125 mg Oral cap 3 caps 4 times per day [Active]; simvastatin 40 mg Oral tab 1 tab once daily [Active]; - PMHx: 13:37 Hyperlipidemia; Hypertension; sv - Immunization history:: Adult Immunizations. - Social history:: Smoking status: . - Immunization history: Last tetanus immunization: unknown. Screenin:45 Abuse screen: Denies threats or abuse. Denies injuries from another. Tuberculosis bp screening: No symptoms or risk factors identified. 13:45 Nutritional screening: No deficits noted. bp 13:45 Fall Risk Fall in past 12 months (25 points). No secondary diagnosis (0 pts). No IV (0 bp pts). Ambulatory Aid- None/Bed Rest/Nurse Assist (0 pts). Gait- Normal/Bed Rest/Wheelchair (0 pts) Mental Status- Oriented to own ability (0 pts). Total Cui Fall Scale indicates Low Risk Score (25-44 pts). Fall prevention measures have been instituted. Side Rails Up X 2 Placed close to Nursing Station Frequent Obs/Assesments occuring As available Patient and Family Educated on Fall Prevention Program and strategies. Primary Survey: 13:40 NO uncontrolled hemorrhage observed. A: The patient is alert. Airway: patent. bp Breathing/Chest: Respiratory pattern: regular, Respiratory effort: spontaneous, unlabored, Breath sounds: clear, bilaterally. Circulation: Skin color: pink, Skin temperature: warm, dry. Disability Alert. Exposure/Environment: There is no evidence of uncontrolled external bleeding. 15:00 Reassessment Airway Airway Patent Oxygen No O2 Breathing/Chest Respiratory pattern bp Regular Respiratory effort Spontaneous Unlabored Circulation Color [place] Temperature Warm Dry Disability Alert. Assessment: 13:40 General: Appears in no apparent distress. uncomfortable, obese, Behavior is bp cooperative, appropriate for age, anxious, SEE TRAUMA TAB. Pain: Complains of pain in face and left supraorbital ridge and left eye and right leg and right knee. 15:00 Reassessment: ALL CURRENT ORDERS COMPLETED, DISPO PENDING. bp 16:50 Reassessment: FAMILY AT B/S FOR D/C. bp 16:56 Reassessment: PT D/C HOME VIA W/C WITH FAMILY, DX WITH SUPERFICIAL HEAD INJURY. bp Vital Signs: 13:38 BP 145 / 86; Pulse 89; Resp 20; Temp 98.9(TE); Pulse Ox 100% ; Weight 83.46 kg; Height sv 5 ft. 7 in. (170.18 cm); 14:00 BP 173 / 95; Pulse 72; Resp 12; Pulse Ox 100% ; bp 15:00 BP 165 / 87; Pulse 61; Resp 13; Pulse Ox 100% ; bp 16:00 BP 131 / 68; Pulse 63; Resp 21; Pulse Ox 100% ; bp 13:38 Body Mass Index 28.82 (83.46 kg, 170.18 cm) sv Darlin Coma Score: 13:39 Eye Response: spontaneous(4). Verbal Response: oriented(5). Motor Response: obeys sv commands(6). Total: 15. Trauma Score (Adult): 13:39 Eye Response: spontaneous(1); Verbal Response: oriented(1); Motor Response: obeys sv commands(2); Systolic BP: > 89 mm Hg(4); Respiratory Rate: 10 to 29 per min(4); [place] Score: 15; Trauma Score: 12 ED Course: 13:35 Patient arrived in ED. mr 13:37 Triage completed. sv 13:45 Arm band placed on. bp 13:46 Patient has correct armband on for positive identification. Bed in low position. Call mh5 light in reach. Side rails up X2. cardiac monitor on. Pulse ox on. NIBP on. 13:54 Avelino Pham, VINNIE is Primary Nurse. bp 14:10 Zhang Garcia MD is Attending Physician. kdr 14:34 Knee Right 3 View XRAY In Process Unspecified. EDMS 14:38 CT Head C Spine In Process Unspecified. EDMS 16:56 No provider procedures requiring assistance completed. Patient did not have IV access bp during this emergency room visit. Kamari wrap to right knee. 16:57 Patient maintains SpO2 saturation greater than 95% on room air. Thermoregulation: warm bp blanket given to patient. Administered Medications: No medications were administered Intake: 13:39 PO: 0ml; Total: 0ml. sv Outcome: 15:59 Discharge ordered by MD. kdr 16:57 Discharged to home ambulatory, with family. bp 16:57 Condition: stable 16:57 Discharge instructions given to patient, Instructed on discharge instructions, follow up and referral plans. medication usage, Demonstrated understanding of instructions, follow-up care, medications, Prescriptions given X 1. 16:57 Patient's length of stay was not longer than 2 hours. bp 16:59 Patient left the ED. bp Signatures: Dispatcher [facility] [employer]) Neena Sebastian RN RN sv Zahng Garcia MD MD [facility] Blanca Ambrosio Delisa Connell [facility] Avelino Pham, VINNIE RN bp Corrections: (The following items were deleted from the chart) 13:40 13:36 Acuity: MARIPOSA 4 sv sv 13:40 13:38 Pulse 89bpm; Resp 20bpm; Pulse Ox 100%; Temp 98.9F Temporal; 83.46 kg; Height 5 sv ft. 7 in.; BMI: 28.8; sv
[2019-11-26 19:44] VITALS: TEMP 98.9; O2SAT 100
[2019-11-26 19:47] VITALS: BP 131/68
== END 2019-11-26 16:59 | disposition home or self-care (01) ==
LOC: ER 13:31
DX: S00.90XA Unspecified superficial injury of unspecified part of head, initial encounter (principal); W18.09XA Striking against other object with subsequent fall, initial encounter; Y93.01 Activity, walking, marching and hiking; Y92.9 Unspecified place or not applicable; I10 Essential (primary) hypertension; E78.5 Hyperlipidemia, unspecified; Z88.0 Allergy status to penicillin
CPT/HCPCS: 70450; 72125; 99285

== ENCOUNTER 2020-04-08 18:51 | Emergency (ER) | payer OTHER ==
--- OUTSIDE RECORDS SUMMARY | 2020-04-08 18:54 | XMS REPORT | Continuity of Care Document ---
:1950 Author Organization [facility] t Address [address] [place] [address] Care Team Providers Name Role Phone Ebshilpam BIODIESEL PROCESSING TECHNICIAN Attending Clinician Saray Workman Attending Clinician Unavailable [...] Problem Active 2019-0 V illage hageal hageal 11 Family reflux Reflux 00:00: Practic disease Disease [...] to moderate Family substanc Practic e e Peniclli Adverse Active Info Not [facility] Reaction Available [facility] Social History Smoking Status Start Date Stop Date Source Never Smoker Carolyn Chaves P racashley Medications Ordered Filled Start Stop Current Ordering Indication Dosage Frequency Signature Comments Components Source Medication Medication Date Date Medication? Clinician (SIG) Name Name Oseltamivir Oseltamivir Yes Arash not [facility] Phosphate Phosphate Griffith defined [facility] aspirin 81 aspirin 81 No 1 Q1D aspirin 81 Village mg mg mg Family tablet,estefany tablet,estefany tablet,del Practic yed release yed release ayed e Take 1 Take 1 release tablet tablet Take 1 every day every day tablet by oral by oral every day route. route. by oral route. ASA ASA Yes Arash not [facility] Griffith defined [facility] azithromyci azithromyci No azithromyc [place] n 250 mg n 250 mg in 250 mg Fa mai tablet tablet tablet Practic e Sucralfate Sucralfate Yes Arash not [facility] Griffith defined [facility] azithromyci azithromyci No azithromyc [place] n 500 mg n 500 mg in 500 mg Fa mai tablet tablet tablet Practic e Cinacalcet Cinacalcet Yes Arash not [facility] HCl HCl Griffith defined [facility] Boostrix Boostrix No Boostrix Loida belkys Tdap 2.5 Lf Tdap 2.5 Lf Tdap 2.5 Family unit-8 unit-8 Lf unit-8 Practi c mcg-5 mcg-5 mcg-5 e Lf/0.5 mL Lf/0.5 mL Lf/0.5 mL intramuscul intramuscul intramuscu ar syringe ar syringe lar syringe potassium potassium Yes Arash not [facility] Griffith defined [facility] carvedilol carvedilol No carvedilol [place] 6.25 mg 6.25 mg 6.25 mg Family tablet Take tablet Take tablet Practic 1 tablet 1 tablet Take 1 e twice a day twice a day tablet by oral by oral twice a route. route. day by oral route. Fish Oil Fish Oil Yes Arash not [facility] cinacalcet cinacalcet No cinacalcet [place] 30 mg 30 mg 30 mg Family tablet tablet tablet Practic e Omeprazole Omeprazole Yes Arash not [facility] St Griffith defined [facility] cinacalcet cinacalcet No cinacalcet [place] 60 mg 60 mg 60 mg Family tablet Take tablet Take tablet Practic 1 tablet 1 tablet Take 1 e every day every day tablet by oral by oral every day route. route. by oral route. Losartan Losartan Yes Arash not [facility] Potassium Potassium Griffith defined [facility] ciprofloxac ciprofloxac No ciprofloxa [place] in 500 mg in 500 mg morro 500 mg Family tablet tablet tablet Practic e Coreg Coreg Yes Arash not [facility] Griffith defined [facility] cyclobenzap cyclobenzap No cyclobenza [place] rine 5 mg rine 5 mg bridget 5 mg Family tablet tablet tablet Practic e Estradiol Estradiol Yes Arash not [facility] Griffith defined [facility] estradiol estradiol No estradiol [place] 0.01% (0.1 0.01% (0.1 0.01% (0.1 Family mg/gram) mg/gram) mg/gram) Pra ctic vaginal vaginal vaginal e cream cream cream Clotrimazol Clotrimazol Yes Arash not [facility] e e Griffith defined [facility] levofloxaci levofloxaci No levofloxac [facility] n 500 mg n 500 mg in 500 mg Fa mai tablet tablet tablet Practic e Simvastatin Simvastatin Yes Arash not [facility] Griffith defined [facility] losartan 25 losartan 25 No losartan [place] mg tablet mg tablet 25 mg Fami ly Take 1 Take 1 tablet Practic tablet tablet Take 1 e every day every day tablet by oral by oral every day route. route. by oral route. losartan 50 losartan 50 No losartan [place] mg-hydrochl mg-hydrochl 50 F amily orothiazide orothiazide mg-hydroch Practic 12.5 mg 12.5 mg lorothiazi e tablet tablet de 12.5 mg tablet metronidazo metronidazo No metronidaz [facility] le 500 mg le 500 mg [...] suspension suspension suspension omeprazole omeprazole No omeprazole [facility] 40 mg 40 mg 40 mg Family capsule,del capsule,del capsule,de Practic ayed ayed layed e release release release Take 1 Take 1 Take 1 capsule capsule capsule every day every day every day by oral by oral by oral route. route. route. ondansetron ondansetron No ondansetro [facility] 8 mg 8 mg n 8 mg Family disintegrat disintegrat disintegra Practic ing tablet ing tablet ting e tablet ondansetron ondansetron No ondansetro [facility] HCl 4 mg HCl 4 mg n HCl 4 mg F amily tablet tablet tablet Practic e pantoprazol pantoprazol No pantoprazo [facility] e 40 mg e 40 mg le 40 mg Famil y tablet,estefany tablet,estefany tablet,del Practic yed release yed release ayed e release simvastatin sim[facility]atin No [facility] 40 mg n 40 mg Family tablet Take tablet Take tablet Practic 1 tablet 1 tablet Take 1 e every day every day tablet by oral by oral every day route. route. by oral route. sucralfate sucralfate No sucralfate [facility] 1 gram 1 gram 1 gram [...] Source Name Name influenza, influenza, 2018-12-08 Completed [place] injectable, injectable, 00:00:00 Practice quadrivalent quadrivalent influenza, influenza, 2017-12-08 Completed [place] injectable, injectable, 00:00:00 Practice quadrivalent quadrivalent Vital Signs Vital Name Observation Time Observation Value Comments Source Height 2019-11-19 00:00:00 67 [in_i] [place] [facility] Height 2019 00:00:00 67 [in_i] [place] [facility] Height 2019-07-12 00:00:00 67 [in_i] [place] [facility] BMI (Body Mass 2019-07-12 00:00:00 28.7 kg/m2 [facility] Family Index) Practice Body Weight 2019-07-12 00:00:00 183 [lb_av] [place] [facility] Procedures Procedure Date / Time Performed Performing Clinician Sourteto e Appendectomy [place] [facility] Cholecystectomy [place] Plan of Care Planned Activity Planned Date Details Comments Source Future Appointment 2020-05-20 00:00:00 [facility], [address]; [address] [address], [place] [address] Encounters Start End Encounter Admission Attending Care Care Encounter Source Date/Time Date/Time Type Type Clinicians Facility Department ID 2019-11-19 2019-11-19 Zaina [facility] [place] - [id number] V illage 00:00:00 00:00:00 RosalindaAmrita [facility] Fam haley o, AIR MOVING TECHNICIAN: Medical - Practi c [email or web address], [address] [address], [place] [address] , Ph. 2019-09-28 2019-09-28 Telephone Yoana [facility] [id number] 00:00:00 00:00:00 [facility] [id number] [place] [id number] Professio [phone] nal [address] One 2019-09-27 2019-09-27 Telephone PACHECO Workman [id number] 00:00:00 00:00:00 Luann IRWIN [id number] [facility] [id number] 2019-09-25 2019-09-25 Laboratory Lab, [facility] [id number] 14:12:55 14:32:55 Only Fam [facility] [id number] [place] [id number] Professio [phone] nal 0[address] One 2019-09-25 2019-09-25 Letter Doctor PACHECO [id number] 00:00:00 00:00:00 (Out) Unassigned, AL[place] [id number] [facility] [id number] 2019-09-25 2019-09-25 Letter Doctor PACHECO [id number] 00:00:00 00:00:00 (Out) Unassigned, [place] [id number] [facility] [id number] 2019 2019 Zaina VFP [place] - [id number] V illage 00:00:00 00:00:00 [facility] haley tsang, AIR MOVING TECHNICIAN: Medical - Practi c [email or web address], [place] [address] , Ph. 2019-07-12 2019-07-12 [facility] [place] - [id number] V illage 00:00:00 00:00:00 [facility] haley tsang, AIR MOVING TECHNICIAN: Medical - Practi c [address] [email or web address], [address] [address], [place] [address] , Ph. 2019-05-20 2019-05-20 Outpatient Jessica Rosa [id number] [facility] 09:15:00 09:15[facility]00 [facility] ent Clinics 2019-05-13 2019-05-13 Outpatient [facility] Jessicat [id number] 09:00:00 09:00:00 [facility] Clinics 2019-04-15 2019-04-15 Outpatient Brazsusan Lopezt [id number] 15:59:00 15:59:00 [facility] Clinics 2019-04-15 2019-04-15 Outpatient Jessica Rosa [id number] [facility] 08:45:00 08:45:00 [facility] Clinics Results This patient has no known results.
[2020-04-08] MEDS ORDERED: NA CHLORIDE 0.9% 1,000 ML ONE (20:17)
[2020-04-08] MEDS ORDERED: FAMOTIDINE 20 MG/2 ML VIAL IV ONE (20:19)
[2020-04-08 20:43] LABS: Absolute Lymphocytes (CBC) 2.9 K/uL (0.7-4.9); Basophils % 0.3 % (0-1.3); Hematocrit 38.7 % (36.0-45.0); Lymphocytes % 23.7 % (15.3-44.8); MPV 9.8 fL (7.6-11.3)
[2020-04-08 20:44] LABS: Protime INR 0.99
[2020-04-08 20:56] LABS: Urine Blood NEGATIVE (NEG); Urine Glucose NEGATIVE (NEG); Urine Protein NEGATIVE (NEG); Urine Specific Gravity 1.015 (1.005-1.030); Urine pH 6.5 (5.0-7.0)
--- NOTE | 2020-04-08 20:56 | RAD REPORT ---
EXAM DESCRIPTION: RAD - Chest Single View - 04/08/2020 8:21 pm CLINICAL HISTORY: COUGH COMPARISON: April 07 TECHNIQUE: AP portable chest image was obtained 04/08/2020 8:21 pm . FINDINGS: Lungs are clear. Interstitial pattern matches comparison. Heart and vasculature are normal . No measurable pleural effusion and no pneumothorax. No acute bony abnormality seen. No acute aortic findings suspected. IMPRESSION: No acute cardiopulmonary process.
[2020-04-08 21:08] LABS: ALT/SGPT 17 U/L (12-78); AST/SGOT 16 U/L (15-37); Albumin 3.7 g/dL (3.4-5.0); Alkaline Phosphatase 143 U/L (45-117); BUN Blood Urea Nitrogen 12 mg/dL (7-18); Bicarbonate 30 mmol/L (21-32); Bilirubin Direct 0.2 mg/dL (0-0.2); Bilirubin Total 0.5 mg/dL (0.2-1.0); Glucose Level 88 mg/dL (74-106); Lipase 121 U/L (73-393); NT PRO-BNP 40 pg/mL (<125); Potassium 3.8 mmol/L (3.5-5.1); Protein, Total 7.7 g/dL (6.4-8.2); Sodium Level 140 mmol/L (136-145); Troponin (Emerg Dept Use Only) < 0.02 ng/mL (0.0-0.045)
--- NOTE | 2020-04-08 23:18 | ER ---
Nurse's Notes [facility] Name: Hannah Wick Age: 69 yrs Sex: Female : 1950 Arrival Date: 04/08/2020 Time: 18:55 Bed 16 Private MD: Herman Bacon Diagnosis: Hypercalcemia;Malaise and fatigue;Chronic rhinitis, nasopharyngitis and pharyngitis Presentation: 04/08 19:07 Chief complaint: Patient states: Sore throat with decreased appetite since January. No ll1 fevers. Choking feeling in her throat when laying flat. Coronavirus screen: Client denies travel out of the [place] in the last 14 days. runny nose, sore throat, Client presents with at least one sign or symptom that may indicate coronavirus-19. Standard/surgical mask placed on the client. Ebola Screen: Patient denies travel to an Ebola-affected area in the 21 days before illness onset. Initial Sepsis Screen: Does the patient meet any 2 criteria? No. Patient's initial sepsis screen is negative. Does the patient have a suspected source of infection? Yes: Other: sore throat. Risk Assessment: Do you want to hurt yourself or someone else? Patient reports no desire to harm self or others. Onset of symptoms was January 23, 2020. 19:07 Method Of Arrival: Ambulatory ll1 19:07 Acuity: MARIPOSA 3 ll1 Historical: - Allergies: 19:09 PENICILLINS; ll1 - PMHx: 19:09 Hyperlipidemia; Hypertension; ll1 - PSHx: 19:09 Appendectomy; ll1 19:34 Tonsillectomy; vg1 - Immunization history:: Flu vaccine is up to date. - Social history:: Smoking status: Patient denies any tobacco usage or history of. - Family history:: not pertinent. Screenin:35 Abuse screen: Denies threats or abuse. Nutritional screening: No deficits noted. vg1 Tuberculosis screening: No symptoms or risk factors identified. Fall Risk Fall in past 12 months (25 points). No secondary diagnosis (0 pts). No IV (0 pts). Ambulatory Aid- None/Bed Rest/Nurse Assist (0 pts). Gait- Normal/Bed Rest/Wheelchair (0 pts) Mental Status- Oriented to own ability (0 pts). Total Cui Fall Scale indicates Low Risk Score (25-44 pts). Fall prevention measures have been instituted. Side Rails Up X 2 Placed close to Nursing Station. Assessment: 19:32 General: Appears in no apparent distress. comfortable, Behavior is calm, cooperative. vg1 Pain: Complains of pain in throat. Pain currently is 10 out of 10 on a pain scale. Pain began since January. Neuro: Level of Consciousness is awake, alert, obeys commands, Oriented to person, place, time, situation. Cardiovascular: Patient's skin is warm and dry. Respiratory: Airway is patent Respiratory effort is even, unlabored, Respiratory pattern is regular, symmetrical, Breath sounds are clear bilaterally. GI: Reports constipation, vomiting, phelem. : No signs and/or symptoms were reported regarding the genitourinary system. EENT: Throat is reddened. Derm: Skin is intact, is healthy with good turgor. Musculoskeletal: Circulation, motion, and sensation intact. 22:06 Reassessment: Patient appears in no apparent distress at this time. Patient and/or vg1 family updated on plan of care and expected duration. Pain level reassessed. Patient is alert, oriented x 3, equal unlabored respirations, skin warm/dry/pink. Patient states feeling better. 23:14 Reassessment: Patient appears in no apparent distress at this time. Patient and/or vg1 family updated on plan of care and expected duration. Pain level reassessed. Patient is alert, oriented x 3, equal unlabored respirations, skin warm/dry/pink. Patient denies pain at this time. Patient states feeling better. Vital Signs: 19:07 BP 160 / 94; Pulse 74; Resp 18; Temp 98.2; Pulse Ox 97% on R/A; Weight 74.39 kg; Height ll1 5 ft. 9 in. (175.26 cm); Pain 10/10; 19:34 BP 147 / 64; Pulse 64; Resp 16; Pulse Ox 100% ; vg1 20:00 BP 150 / 60; Pulse 65; Resp 16; Pulse Ox 99% on R/A; vg1 21:00 BP 155 / 77; Pulse 61; Resp 14; Pulse Ox 100% on R/A; vg1 22:06 BP 145 / 80; Pulse 63; Resp 14; Pulse Ox 100% on R/A; vg1 23:00 BP 133 / 82; Pulse 69; Resp 20; Pulse Ox 99% on R/A; vg1 19:07 Body Mass Index 24.22 (74.39 kg, 175.26 cm) ll1 ED Course: 18:15 Initial lab(s) drawn, by me, sent to lab. Inserted saline lock: 20 gauge in right vg1 forearm, using aseptic technique. Blood collected. 18:55 Patient arrived in ED. mr 18:55 Herman Bacon MD is Private Physician. mr 19:09 Triage completed. ll1 19:09 Arm band placed on Patient placed in an exam room, on a stretcher. ll1 19:17 David Webb MD is Attending Physician. asher 19:32 Gunjan Varner, VINNIE is Primary Nurse. vg1 19:35 Patient has correct armband on for positive identification. Bed in low position. Call vg1 light in reach. Side rails up X 1. 20:16 Xray at bedside. vg1 20:21 XRAY Chest (1 view) In Process Unspecified. EDMS 21:09 Notified ED physician of a critical lab result(s). Calcium 11.9. lp1 21:48 Soft Tissue Neck W/Contr In Process Unspecified. EDMS 21:49 Abdomen In Process Unspecified. EDMS 23:15 Herman Bacon MD is Referral Physician. asher 23:18 Neena Hubbard MD is Referral Physician. asher 23:43 No provider procedures requiring assistance completed. IV discontinued, intact, vg1 bleeding controlled, No redness/swelling at site. Pressure dressing applied. Administered Medications: 20:37 Drug: NS 0.9% 500 ml Route: IV; Rate: bolus; Site: right forearm; vg1 22:05 Follow up: IV Status: Completed infusion; IV Intake: 500ml vg1 20:38 Drug: Pepcid 20 mg Route: IVP; Site: right forearm; vg1 22:06 Follow up: Response: No adverse reaction vg1 22:05 Drug: NS 0.9% 1000 ml Route: IV; Rate: 125 ml/hr; Site: left forearm; vg1 23:42 Follow up: IV Status: Completed infusion; IV Intake: 200ml vg1 Intake: 22:05 IV: 500ml; Total: 500ml. vg1 23:42 IV: 200ml; Total: 700ml. vg1 Outcome: 23:18 Discharge ordered by . asher 23:43 Discharged to home ambulatory. vg1 23:43 Condition: stable 23:43 Discharge instructions given to patient, Instructed on discharge instructions, follow up and referral plans. medication usage, Demonstrated understanding of instructions, follow-up care, medications, Prescriptions given X 1. 23:43 Patient left the ED. vg1 Signatures: Dispatcher [employer] EDMS David Webb MD MD cha Rivera, Christy Caldwell, RN RN lp1 Gunjan Varner RN RN vg1 Oswald Holt RN RN ll1
--- NOTE | 2020-04-08 23:18 | EDPHYS ---
Physician Documentation [facility] Name: Hannah Wick Age: 69 yrs Sex: Female : 1950 Arrival Date: 04/08/2020 Time: 18:55 Bed 16 Private MD: Herman Bacon ED Physician David Webb HPI: 04/08 19:52 This 69 yrs old Female presents to ER via Ambulatory with complaints of Sore asher Throat. 19:52 The patient presents with sore throat, a foreign body sensation in the throat. The asher patient describes throat pain as constant. Onset: The symptoms/episode began/occurred 2 month(s) ago. Severity of symptoms: At their worst the symptoms were mild, moderate, in the emergency department the symptoms are unchanged. Modifying factors: The symptoms are alleviated by nothing, the symptoms are aggravated by swallowing. Associated signs and symptoms: The patient has no apparent associated signs or symptoms. The patient has not experienced similar symptoms in the past. Historical: - Allergies: 19:09 PENICILLINS; ll1 - PMHx: 19:09 Hyperlipidemia; Hypertension; ll1 - PSHx: 19:09 Appendectomy; ll1 19:34 Tonsillectomy; vg1 - Immunization history:: Flu vaccine is up to date. - Social history:: Smoking status: Patient denies any tobacco usage or history of. - Family history:: not pertinent. ROS: 19:52 Constitutional: Negative for fever, chills, and weight loss, Eyes: Negative for injury, asher pain, redness, and discharge, Neck: Negative for injury, pain, and swelling, Cardiovascular: Negative for chest pain, palpitations, and edema, Respiratory: Negative for shortness of breath, cough, wheezing, and pleuritic chest pain, Back: Negative for injury and pain, : Negative for injury, bleeding, discharge, and swelling, MS/Extremity: Negative for injury and deformity, Skin: Negative for injury, rash, and discoloration, Neuro: Negative for headache, weakness, numbness, tingling, and seizure, Psych: Negative for depression, anxiety, suicide ideation, homicidal ideation, and hallucinations, Allergy/Immunology: Negative for hives, rash, and allergies, Endocrine: Negative for neck swelling, polydipsia, polyuria, polyphagia, and marked weight changes, Hematologic/Lymphatic: Negative for swollen nodes, abnormal bleeding, and unusual bruising. 19:52 ENT: Positive for difficulty swallowing, hoarseness. 19:52 Abdomen/GI: Positive for abdominal pain, of the epigastric area, right upper quadrant and left upper quadrant. Exam: 19:52 Constitutional: This is a well developed, well nourished patient who is awake, alert, asher and in no acute distress. Head/Face: Normocephalic, atraumatic. Eyes: Pupils equal round and reactive to light, extra-ocular motions intact. Lids and lashes normal. Conjunctiva and sclera are non-icteric and not injected. Cornea within normal limits. Periorbital areas with no swelling, redness, or edema. Neck: Trachea midline, no thyromegaly or masses palpated, and no cervical lymphadenopathy. Supple, full range of motion without nuchal rigidity, or vertebral point tenderness. No Meningismus. Chest/axilla: Normal chest wall appearance and motion. Nontender with no deformity. No lesions are appreciated. Cardiovascular: Regular rate and rhythm with a normal S1 and S2. No gallops, murmurs, or rubs. Normal PMI, no JVD. No pulse deficits. Respiratory: Lungs have equal breath sounds bilaterally, clear to auscultation and percussion. No rales, rhonchi or wheezes noted. No increased work of breathing, no retractions or nasal flaring. Back: No spinal tenderness. No costovertebral tenderness. Full range of motion. Female : Normal external genitalia. Skin: Warm, dry with normal turgor. Normal color with no rashes, no lesions, and no evidence of cellulitis. MS/ Extremity: Pulses equal, no cyanosis. Neurovascular intact. Full, normal range of motion. Neuro: Awake and alert, GCS 15, oriented to person, place, time, and situation. Cranial nerves II-XII grossly intact. Motor strength 5/5 in all extremities. Sensory grossly intact. Cerebellar exam normal. Normal gait. Psych: Awake, alert, with orientation to person, place and time. Behavior, mood, and affect are within normal limits. 19:52 ENT: Posterior pharynx: Tonsils: with erythema, Uvula: normal, midline, erythema. 19:52 Abdomen/GI: Inspection: abdomen appears normal, Bowel sounds: normal, in all quadrants, Palpation: abdomen is soft and non-tender, Liver: no appreciated palpable abnormalities, Hernia: not appreciated. 20:19 ECG was reviewed by the Attending Physician. [facility] Vital Signs: 19:07 BP 160 / 94; Pulse 74; Resp 18; Temp 98.2; Pulse Ox 97% on R/A; Weight 74.39 kg; Height ll1 5 ft. 9 in. (175.26 cm); Pain 10/10; 19:34 BP 147 / 64; Pulse 64; Resp 16; Pulse Ox 100% ; vg1 20:00 BP 150 / 60; Pulse 65; Resp 16; Pulse Ox 99% on R/A; vg1 21:00 BP 155 / 77; Pulse 61; Resp 14; Pulse Ox 100% on R/A; vg1 22:06 BP 145 / 80; Pulse 63; Resp 14; Pulse Ox 100% on R/A; vg1 23:00 BP 133 / 82; Pulse 69; Resp 20; Pulse Ox 99% on R/A; vg1 19:07 Body Mass Index 24.22 (74.39 kg, 175.26 cm) ll1 MDM: 19:17 Patient medically screened. asher 19:55 Differential diagnosis: cocksackie virus, epiglottitis, group A strep tonsillitis, asher laryngitis, peritonsillar abscess pharyngitis, retropharyngeal abcess tonsillitis, upper respiratory infection, uvulitis. Data reviewed: vital signs, nurses notes, lab test result(s), EKG, radiologic studies, CT scan, plain films. Data interpreted: residential monitor: not applicable for this patient encounter. Pulse oximetry: is not applicable for this patient encounter. Test interpretation: by ED physician or midlevel provider: ECG, plain radiologic studies. Counseling: I had a detailed discussion with the patient and/or guardian regarding: the historical points, exam findings, and any diagnostic results supporting the discharge/admit diagnosis, lab results, radiology results. 04/08 19:52 Order name: Basic Metabolic Panel; Complete Time: 22:30 [facility] 04/08 19:52 Order name: CBC with Diff; Complete Time: 20:56 [facility] 04/08 19:52 Order name: LFT's; Complete Time: 22:30 [facility] 04/08 19:52 Order name: Magnesium; Complete Time: 22:30 [facility] 04/08 19:52 Order name: NT PRO-BNP; Complete Time: 22:30 [facility] 04/08 19:52 Order name: PT-INR; Complete Time: 22:30 [facility] 04/08 19:52 Order name: Troponin (emerg Dept Use Only); Complete Time: 22:30 [facility] 04/08 19:52 Order name: XRAY Chest (1 view); Complete Time: 20:56 [facility] 04/08 19:52 Order name: Lipase; Complete Time: 22:30 [facility] 04/08 19:57 Order name: Strep; Complete Time: 20:56 [facility] 04/08 20:24 Order name: Urine Dipstick--Ancillary (enter results); Complete Time: 22:30 [facility] 04/08 20:37 Order name: Throat Culture EDSD 04/08 20:52 Order name: CREATININE WHOLE BLOOD; Complete Time: 20:56 [facility] 04/08 19:52 Order name: EKG; Complete Time: 19:53 [facility] 04/08 19:52 Order name: Cardiac monitoring; Complete Time: 20:15 [facility] 04/08 19:52 Order name: EKG - Nurse/Tech; Complete Time: 20:15 [facility] 04/08 19:52 Order name: IV Saline Lock; Complete Time: 20:39 [facility] 04/08 19:52 Order name: Labs collected and sent; Complete Time: 20:39 [facility] 04/08 19:52 Order name: O2 Per Protocol; Complete Time: 19:55 [facility] 04/08 19:52 Order name: O2 Sat Monitoring; Complete Time: 19:56 [facility] 04/08 19:52 Order name: Urine Dipstick-Ancillary (obtain specimen); Complete Time: 20:37 [facility] 04/08 21:38 Order name: Soft Tissue Neck W/Contr EDSD 04/08 21:49 Order name: Abdomen EDMS EC:19 Rate is 58 beats/min. Rhythm is regular. QRS [place] is Normal. MA interval is normal. QRS asher interval is normal. QT interval is normal. No Q waves. T waves are Normal. No ST changes noted. Clinical impression: NSR w/ Non-specific ST/T Changes, Sinus bradycardia, and No evidence of ischemia. Interpreted by me. Reviewed by me. Administered Medications: 20:37 Drug: NS 0.9% 500 ml Route: IV; Rate: bolus; Site: right forearm; vg1 22:05 Follow up: IV Status: Completed infusion; IV Intake: 500ml vg1 20:38 Drug: Pepcid 20 mg Route: IVP; Site: right forearm; vg1 22:06 Follow up: Response: No adverse reaction vg1 22:05 Drug: NS 0.9% 1000 ml Route: IV; Rate: 125 ml/hr; Site: left forearm; vg1 23:42 Follow up: IV Status: Completed infusion; IV Intake: 200ml vg1 Disposition: 04/08/20 23:18 Discharged to Home. Impression: Hypercalcemia, Malaise and fatigue, Chronic rhinitis, nasopharyngitis and pharyngitis. - Condition is Stable. - Discharge Instructions: Hypercalcemia, Pharyngitis, Weakness, Weakness, [id number]. - Prescriptions for Claritin 10 mg Oral Tablet - take 1 tablet by ORAL route once daily As needed; 30 tablet. - Medication Reconciliation Form, Thank You Letter, Antibiotic Education, Prescription Opioid Use form. - Follow up: Herman Bacon MD; When: 2 - 3 days; Reason: Recheck today's complaints, Continuance of care, Re-evaluation by your physician. Follow up: Neena Hubbard MD; When: 2 - 3 days; Reason: Recheck today's complaints, Re-evaluation by your physician. - Problem is new. - Symptoms have improved. Signatures: Dispatcher [employer] EDMS David Webb MD MD cha Garcia, Victoria, RN RN vg1 Oswald Holt RN RN ll1 Corrections: (The following items were deleted from the chart) 21:41 19:53 Soft Tissue Neck W/Contr+CT.RAD.BRZ ordered. [facility] EDMS 21:41 20:06 Abdomen Pelvis W Con+CT.RAD.BRZ ordered. EDSD EDMS 21:49 21:38 Abdomen ordered. [facility] EDMS 23:18 23:18 04/08/2020 23:18 Discharged to Home. Impression: Hypercalcemia; Malaise and asher fatigue; Chronic rhinitis, nasopharyngitis and pharyngitis. Condition is Stable. Forms are Medication Reconciliation Form, Thank You Letter, Antibiotic Education, Prescription Opioid Use. Follow up: Herman Bacon; When: 2 - 3 days; Reason: Recheck today's complaints, Continuance of care, Re-evaluation by your physician. Problem is new. Symptoms have improved. asher 23:43 23:18 04/08/2020 23:18 Discharged to Home. Impression: Hypercalcemia; Malaise and vg1 fatigue; Chronic rhinitis, nasopharyngitis and pharyngitis. Condition is Stable. Forms are Medication Reconciliation Form, Thank You Letter, Antibiotic Education, Prescription Opioid Use. Follow up: Herman Bacon; When: 2 - 3 days; Reason: Recheck today's complaints, Continuance of care, Re-evaluation by your physician. Follow up: Neena Hubbard; When: 2 - 3 days; Reason: Recheck today's complaints, Re-evaluation by your physician. Problem is new. Symptoms have improved. asher
[2020-04-08 23:49] VITALS: TEMP 98.2
[2020-04-08 23:54] VITALS: BP 133/82; O2SAT 99
--- NOTE | 2020-04-10 08:21 | EKG ---
Test Date: 2020-04-08 Test Time: 20:09:39 Paunch Trimmer: LE MEASUREMENT RESULTS: Intervals: Rate: 58 OH: 184 QRSD: 84 QT: 394 QTc: 386 [place]: P: 62 OH: 184 QRS: 45 T: 40 INTERPRETIVE STATEMENTS: Sinus bradycardia Otherwise normal ECG Compared to ECG 07/25/2019 17:27:51 Sinus rhythm no longer present Electronically Signed On 04-10-20 08:17:58 ENDODONTIST by Leodan Maguire
--- NOTE | 2020-04-10 09:50 | RAD REPORT ---
EXAM DESCRIPTION: CT - Abdomen Pelvis W Contrast - 04/09/2020 3:27 am CLINICAL HISTORY: Abdominal pain. COMPARISON: 07/25/2019 TECHNIQUE: CT scan of the abdomen and pelvis was performed with IV contrast. This exam was performed according to our departmental dose-optimization program, which includes automated exposure control, adjustment of the mA and/or kV according to patient size and/or use of iterative reconstruction techn ique. FINDINGS: The lung bases are clear. No pleural or pericardial effusions. There is no hiatal hernia. There has been a prior cholecystectomy. The liver, spleen, pancreas, adrenal glands, and kidneys are unremarkable. No hydronephrosis or urinary stones are seen. The pelvic organs are also unremarkable. There are scattered colonic diverticula without surrounding inflammatory changes. There is no small b owel obstruction or acute appendicitis. The stomach is also unremarkable. There is no intraperitoneal adenopathy, free fluid, or free air. Mild degenerative changes of the lumbar spine. No abnormal body wall hernia is identified. The aorta is mildly atherosclerotic with a maximum diameter of 2.9 cm IMPRESSION: 1. No acute abdominal or pelvic findings. 2. 2.9 cm abdominal aortic aneurysm suspected. Recommend follow-up every 5 years. Reference: J Am Simone Radiol 2013;10:789-794. Electronically signed by: Rajendra Lucia MD 04/08/2020 10:22 PM AFTER SCHOOL DRIVER Due to temporary technical issues with the PACS/Fluency reporting system, reports are being signed by the in house radiologist without review as a courtesy to ensure prompt reporting. The interpreting r adiologist is fully responsible for the content of the report.
--- NOTE | 2020-04-10 10:44 | RAD REPORT ---
EXAM DESCRIPTION: CT - Soft Tissue Neck W/Contr - 04/09/2020 3:27 am CLINICAL HISTORY: 69 years Female, SORE THROAT / LOSS OF APPETITE SINCE JANUARY COMPARISON: CT cervical spine November 26, 2019. TECHNIQUE: Multiple helical axial tomographic images were obtained of the neck following administrat ion of intravenous contrast. Coronal and sagittal reformatted images were obtained. This exam was per formed according to our departmental dose-optimization program, which includes automated exposure con trol, adjustment of the mA and/or kV according to patient size and/or use of iterative reconstruction technique. FINDINGS: Retropharyngeal soft tissues appear normal. Epiglottis appears normal. Larynx and vocal fo lds appear unremarkable. Thyroid gland appears normal. Salivary glands appear unremarkable. No signif icant adenopathy. No evidence of abscess. Major vasculature appears grossly patent. There is minimal right carotid bulb atherosclerosis. No obvious soft tissue mass. Orbits and orbital contents appear unremarkable. Paranasal sinuses are clear. Nonspecific partial opa cification of the bilateral mastoid air cells is noted. Middle ear spaces are clear. Visualized lungs are clear. Mild degenerative changes of the cervical spine are present. Osseous structures otherwise unremarkabl e. IMPRESSION: Unremarkable CT evaluation of the neck. Electronically signed by: Torrey Hull MD 04/08/2020 10:36 PM SKIP LOAD DRIVER Due to temporary technical issues with the PACS/Fluency reporting system, reports are being signed by the in house radiologist without review as a courtesy to ensure prompt reporting. The interpreting r adiologist is fully responsible for the content of the report.
== END 2020-04-08 23:43 | disposition home or self-care (01) ==
LOC: ER 18:51
DX: J31.2 Chronic pharyngitis (principal); J31.0 Chronic rhinitis; E83.52 Hypercalcemia; R53.81 Other malaise; R53.83 Other fatigue; E78.5 Hyperlipidemia, unspecified; I10 Essential (primary) hypertension
CPT/HCPCS: 96361; 93005; 87070; 85025; 80048; 36415; 83735; 85610; 82565; 80076; 87081; 81003; 84484; 83690; 83880; 70491; 74177; 71045; 96374; 99284; Q9967; J7030

== ENCOUNTER 2020-04-20 21:11 | Inpatient (IN) | payer OTHER, SELFPAY ==
[2020-04-20 22:14] LABS: Basophils % 0.2 % (0-1.3); Hematocrit 38.9 % (36.0-45.0); Lymphocytes % 3.3 % (15.3-44.8); MPV 9.8 fL (7.6-11.3); RBC Red Blood Cell Count 4.39 M/uL (3.86-4.86)
[2020-04-20] MEDS ORDERED: ONDANSETRON 4 MG/2 ML VIAL ONE (22:20)
[2020-04-20 22:21] LABS: Urine Bacteria <20 /HPF (<20); Urine Mucus 1+ /HPF (NONE SEEN); Urine RBC <5 /HPF (NONE SEEN)
[2020-04-20 22:21] LABS: Urine Blood TRACE (NEG); Urine Glucose NEGATIVE (NEG); Urine Protein 1+ (NEG); Urine Specific Gravity 1.025 (1.005-1.030)
[2020-04-20] MEDS ORDERED: FAMOTIDINE 20 MG/2 ML VIAL IV ONE (22:21)
[2020-04-20] MEDS ORDERED: NA CHLORIDE 0.9% 1,000 ML ONE ×2 (22:21→22:57)
[2020-04-20 22:34] LABS: Albumin 3.7 g/dL (3.4-5.0); Bilirubin Direct 0.2 mg/dL (0-0.2); Bilirubin Total 0.7 mg/dL (0.2-1.0); Potassium 3.3 mmol/L (3.5-5.1)
[2020-04-20 22:38] LABS: Blood Morphology Comment NOT SEEN (NOT SEEN); Platelet Estimate ADEQ
[2020-04-20] MEDS ORDERED: MORPHINE 2 MG/ML SYR ONE (22:45)
[2020-04-20] MEDS ORDERED: METRONIDAZOLE 500mg IVPB 500 MG/100 ML BAG IV ONE (22:58)
[2020-04-20] MEDS ORDERED: CIPROFLOXACIN 400mg IV 400 MG/200 ML BAG IV ONE (22:58)
--- NOTE | 2020-04-20 23:55 | ER ---
Nurse's Notes [facility] Name: Hannah Wick Age: 69 yrs Sex: Female : 1950 Arrival Date: 04/20/2020 Time: 21:19 Bed 20 Private MD: Diagnosis: Nausea and vomiting;Diverticular disease of large intestine without perforation or abscess;Elevated white blood cell count;Bandemia Presentation: 04/20 21:37 Chief complaint: Patient states: i started to have n/v since yesterday with lower mg2 abdominal pain. Coronavirus screen: Client denies travel out of the [place] in the last 14 days. Ebola Screen: No symptoms or risks identified at this time. Initial Sepsis Screen: Does the patient meet any 2 criteria? No. Patient's initial sepsis screen is negative. Does the patient have a suspected source of infection? No. Patient's initial sepsis screen is negative. Risk Assessment: Do you want to hurt yourself or someone else? Patient reports no desire to harm self or others. Onset of symptoms was April 19, 2020. 21:37 Method Of Arrival: Wheelchair mg2 21:37 Acuity: MARIPOSA 3 mg2 Historical: - Allergies: 21:39 PENICILLINS; mg2 - PMHx: 21:39 Hyperlipidemia; Hypertension; mg2 - PSHx: 21:39 Cholecystectomy; abdominal sx; mg2 - Immunization history:: Flu vaccine status is unknown. - Social history:: Smoking status: Patient denies any tobacco usage or history of. Patient/guardian denies using alcohol, street drugs, IV drugs. Screenin:11 Abuse screen: Denies threats or abuse. Denies injuries from another. Nutritional mg2 screening: No deficits noted. Tuberculosis screening: No symptoms or risk factors identified. Fall Risk IV access (20 points). Assessment: 22:10 General: Appears in no apparent distress. comfortable, Behavior is calm, cooperative. mg2 Pain: Complains of pain in abdomen. Neuro: Level of Consciousness is awake, alert, obeys commands, Oriented to person, place, time, situation. Cardiovascular: Capillary refill < 3 seconds Patient's skin is warm and dry. Respiratory: Airway is patent Respiratory effort is even, unlabored, Respiratory pattern is regular, symmetrical. GI: Pt is actively vomiting bile. GI: Reports lower abdominal pain, nausea, vomiting, since yesterday. : No signs and/or symptoms were reported regarding the genitourinary system. EENT: No signs and/or symptoms were reported regarding the EENT system. Derm: Skin is intact, is healthy with good turgor, Skin is pink, warm \T\ dry. normal. Musculoskeletal: Circulation, motion, and sensation intact. Capillary refill < 3 seconds. Vital Signs: 21:37 BP 137 / 100; Pulse 120; Resp 18; Temp 99; Pulse Ox 95% on R/A; Weight 72.57 kg; Height mg2 5 ft. 4 in. (162.56 cm); 23:27 BP 138 / 73; Pulse 98; Resp 18; Pulse Ox 96% on R/A; em 21:37 Body Mass Index 27.46 (72.57 kg, 162.56 cm) mg2 ED Course: 00:45 Patient admitted, IV remains in place. mg2 21:19 Patient arrived in ED. ag3 21:37 Frankie Leblanc, VINNIE is Primary Nurse. mg2 21:38 Triage completed. mg2 21:39 David Delgado PA is PHCP. cp 21:39 David Webb MD is Attending Physician. cp 21:39 Arm band placed on. mg2 22:05 Inserted saline lock: 20 gauge in right antecubital area, using aseptic technique. mg2 22:11 Patient has correct armband on for positive identification. Pulse ox on. NIBP on. Door mg2 closed. Warm blanket given. 22:11 No provider procedures requiring assistance completed. mg2 22:55 XRAY Chest (1 view) In Process Unspecified. EDMS 22:56 CT Abd/Pelvis - IV Contrast Only In Process Unspecified. EDMS 23:52 Blank Wilkerson MD is Hospitalizing Provider. cp 02 11:10 Primary Nurse role handed off by Frankie Leblanc, RN eb Administered Medications: 04/20 22:12 Drug: Zofran (Ondansetron) 4 mg Route: IVP; Site: right antecubital; mg2 23:26 Follow up: Response: No adverse reaction em 22:12 Drug: NS 0.9% 1000 ml Route: IV; Rate: 1000 ml; Site: right antecubital; mg2 23:26 Follow up: Response: No adverse reaction; IV Status: Completed infusion; IV Intake: em 1000ml 22:13 Drug: Pepcid 20 mg Route: IVP; Site: right antecubital; mg2 23:27 Follow up: Response: No adverse reaction em 22:31 Drug: morphine 2 mg Route: IVP; Site: right antecubital; mg2 23:26 Follow up: Response: No adverse reaction em 22:37 Drug: NS 0.9% 1000 ml Route: IV; Rate: 1 bolus; Site: right antecubital; mg2 23:16 Drug: metroNIDAZOLE 500 mg Volume: 100 ml; Route: IVPB; Infused Over: 30 mins; Site: em right antecubital; 23:26 Drug: Cipro 400 mg Volume: 200 ml; Route: IVPB; Infused Over: 60 mins; Site: right em antecubital; 23:57 Drug: Phenergan 12.5 mg Route: IVP; Site: right antecubital; mg2 04/21 00:01 Drug: Potassium Chloride 10 mEq Route: IV; Rate: calculated rate; Site: left forearm; mg2 01:20 Follow up: Response: No adverse reaction; IV Status: Completed infusion mg2 00:02 Drug: Magnesium Sulfate 1 grams Route: IVPB; Infused Over: 1 hrs; Site: left forearm; mg2 Intake: 04/20 23:26 IV: 1000ml; Total: 1000ml. em Outcome: 23:54 Decision to Hospitalize by Provider. dayron 04/21 00:45 Admitted to ER Hold. Please see [facility] for further documentation. mg2 Condition: stable Instructed on the need for admit, Demonstrated understanding of instructions. 15:37 Patient left the ED. eb Signatures: Dispatcher [employer] Avery Armstrong RN RN em David Delgado PA PA Rosa M Khalil Frankie Leblanc RN RN mg2 Earline Mario ag3 Corrections: (The following items were deleted from the chart) 04/20 22:10 21:37 BP 137 / 100; Pulse 120bpm; Resp 18bpm; Pulse Ox 100% RA; Temp 99F; 72.57 kg; mg2 Height 5 ft. 4 in.; BMI: 27.4; mg2
--- NOTE | 2020-04-20 23:55 | EDPHYS ---
Physician Documentation [facility] Name: aHnnah Wick Age: 69 yrs Sex: Female : 1950 Arrival Date: 04/20/2020 Time: 21:19 Bed 20 Private MD: ED Physician David Webb HPI: 04/20 21:45 This 69 yrs old Female presents to ER via Wheelchair with complaints of cp Nausea/Vomiting. 21:45 The patient presents to the emergency department with nausea, with "dry heaves", cp vomiting, that is continuous, abdominal pain, of the right lower quadrant and left lower quadrant, and does not radiate. Onset: The symptoms/episode began/occurred yesterday. Possible causes: unknown. Associated signs and symptoms: Pertinent positives: flatulence, Pertinent negatives: constipation, diarrhea, dysuria, fever, GI bleeding. Severity of symptoms: in the emergency department the symptoms are unchanged despite home interventions. Historical: - Allergies: 21:39 PENICILLINS; mg2 - PMHx: 21:39 Hyperlipidemia; Hypertension; mg2 - PSHx: 21:39 Cholecystectomy; abdominal sx; mg2 - Immunization history:: Flu vaccine status is unknown. - Social history:: Smoking status: Patient denies any tobacco usage or history of. Patient/guardian denies using alcohol, street drugs, IV drugs. ROS: 21:50 Constitutional: Positive for poor PO intake, Negative for body aches, chills, fever. cp 21:50 Eyes: Negative for injury, pain, redness, and discharge. cp 21:50 ENT: Negative for ear pain, sore throat, difficulty swallowing, difficulty handling secretions. 21:50 Cardiovascular: Negative for chest pain, edema, palpitations. 21:50 Respiratory: Negative for cough, shortness of breath, wheezing. 21:50 Abdomen/GI: Positive for abdominal pain, nausea and vomiting, anorexia, Negative for diarrhea, constipation, hematemesis, black/tarry stool, rectal bleeding. 21:50 Neuro: Negative for altered mental status, headache, syncope, weakness. 21:50 All other systems are negative. Exam: 22:00 Constitutional: The patient appears in no acute distress, alert, awake, cp non-diaphoretic, non-toxic, well developed, well nourished, uncomfortable. 22:00 Head/Face: Normocephalic, atraumatic. cp 22:00 Eyes: Periorbital structures: appear normal, Conjunctiva: normal, no exudate, no cp injection, Sclera: no appreciated abnormality, Lids and lashes: appear normal, bilaterally. 22:00 ENT: External ear(s): are unremarkable, Nose: is normal, Mouth: Lips: moist, Oral mucosa: moist, Posterior pharynx: Airway: no evidence of obstruction, patent. 22:00 Neck: ROM/movement: is normal, is supple, without pain, no range of motions limitations. 22:00 Chest/axilla: Inspection: normal, Palpation: is normal, no crepitus, no tenderness. 22:00 Cardiovascular: Rate: tachycardic, Rhythm: regular, Edema: is not appreciated, JVD: is not appreciated. 22:00 Respiratory: the patient does not display signs of respiratory distress, Respirations: normal, no use of accessory muscles, no retractions, labored breathing, is not present, Breath sounds: are clear throughout, no decreased breath sounds, no stridor, no wheezing. 22:00 Abdomen/GI: Inspection: abdomen appears normal, Bowel sounds: active, all quadrants, Palpation: soft, in all quadrants, moderate abdominal tenderness, in the right lower quadrant and left lower quadrant, rebound tenderness, is not appreciated, voluntary guarding, is elicited in the right lower quadrant and left lower quadrant. 22:00 Back: pain, is absent, ROM is normal. 22:00 Neuro: Orientation: to person, place \\T\\ time. Mentation: is normal, Motor: moves all fours, strength is normal. Vital Signs: 21:37 BP 137 / 100; Pulse 120; Resp 18; Temp 99; Pulse Ox 95% on R/A; Weight 72.57 kg; Height mg2 5 ft. 4 in. (162.56 cm); 23:27 BP 138 / 73; Pulse 98; Resp 18; Pulse Ox 96% on R/A; em 21:37 Body Mass Index 27.46 (72.57 kg, 162.56 cm) mg2 MDM: 21:39 Patient medically screened. asher 22:00 Differential diagnosis: gastritis, appendicitis, diverticulitis, viral gastroenteritis, cp gastroenteritis, dehydration, bowel obstruction. 23:42 Data reviewed: vital signs, nurses notes, lab test result(s), radiologic studies, CT cp scan. Physician consultation: Blank Wilkerson MD was called at 23:40, was contacted at 23:40, regarding admission, to the medical/surgical unit. patient's condition. 04/20 21:37 Order name: Basic Metabolic Panel; Complete Time: 22:36 mg2 04/20 22:36 Interpretation: Normal except: K 3.3; GLUC 113; GFR 59; CA 11.1. cp 04/20 21:37 Order name: CBC with Diff; Complete Time: 23:16 mg2 04/20 23:16 Interpretation: Abnormal: WBC 31.10; CAMI% 91.2; LYM% 3.3; NEUT A 28.4; MNA 1.7. cp 04/20 21:37 Order name: Hepatic Function; Complete Time: 22:36 mg2 04/20 21:37 Order name: Lipase; Complete Time: 22:36 mg2 04/20 22:00 Order name: Urine Microscopic Only; Complete Time: 22:23 cp 04/20 22:10 Order name: Urine Dipstick--Ancillary (enter results); Complete Time: 22:23 tt3 04/20 22:34 Order name: Manual Differential; Complete Time: 23:16 EDMS 04/20 23:17 Interpretation: Normal except: SEGS 87; BANDS [F] 5; LYM 4. cp 04/20 22:35 Order name: Lactate cp 04/20 22:35 Order name: Procalcitonin cp 04/20 22:35 Order name: Blood Culture Adult (2) cp 04/20 22:35 Order name: Magnesium; Complete Time: 23:16 cp 04/20 22:36 Order name: Lactate; Complete Time: 13:31 EDMS 04/20 22:36 Order name: Procalcitonin; Complete Time: 23:39 EDMS 04/20 22:25 Order name: CT Abd/Pelvis - IV Contrast Only; Complete Time: 13:31 cp 04/20 22:35 Order name: XRAY Chest (1 view); Complete Time: 13:31 cp 04/21 00:10 Order name: Comprehensive Metabolic Panel EDMS 04/21 00:10 Order name: Comprehensive Metabolic Panel EDMS 04/21 00:10 Order name: CBC with Automated Diff EDMS 04/21 00:10 Order name: CBC with Automated Diff EDMS 04/21 00:15 Order name: SARS-COV-2 RT PCR; Complete Time: 13:31 EDMS 04/21 01:44 Order name: Thyroid Stimulating Hormone; Complete Time: 13:31 EDMS 04/21 08:49 Order name: Glucose, Ancillary Testing; Complete Time: 13:31 EDMS 04/21 12:31 Order name: Glucose, Ancillary Testing; Complete Time: 13:31 EDMS 04/20 21:37 Order name: IV Saline Lock; Complete Time: 22:10 mg2 04/20 21:37 Order name: Labs collected and sent; Complete Time: 22:10 mg2 04/20 21:37 Order name: Urine Dipstick-Ancillary (obtain specimen); Complete Time: 22:10 mg2 04/21 00:10 Order name: CONS Pharmacy Consult EDMS 04/21 00:10 Order name: Full Liquid EDIA Administered Medications: 22:12 Drug: Zofran (Ondansetron) 4 mg Route: IVP; Site: right antecubital; mg2 23:26 Follow up: Response: No adverse reaction em 22:12 Drug: NS 0.9% 1000 ml Route: IV; Rate: 1000 ml; Site: right antecubital; mg2 23:26 Follow up: Response: No adverse reaction; IV Status: Completed infusion; IV Intake: em 1000ml 22:13 Drug: Pepcid 20 mg Route: IVP; Site: right antecubital; mg2 23:27 Follow up: Response: No adverse reaction em 22:31 Drug: morphine 2 mg Route: IVP; Site: right antecubital; mg2 23:26 Follow up: Response: No adverse reaction em 22:37 Drug: NS 0.9% 1000 ml Route: IV; Rate: 1 bolus; Site: right antecubital; mg2 23:16 Drug: metroNIDAZOLE 500 mg Volume: 100 ml; Route: IVPB; Infused Over: 30 mins; Site: em right antecubital; 23:26 Drug: Cipro 400 mg Volume: 200 ml; Route: IVPB; Infused Over: 60 mins; Site: right em antecubital; 23:57 Drug: Phenergan 12.5 mg Route: IVP; Site: right antecubital; mg2 04/21 00:01 Drug: Potassium Chloride 10 mEq Route: IV; Rate: calculated rate; Site: left forearm; mg2 01:20 Follow up: Response: No adverse reaction; IV Status: Completed infusion mg2 00:02 Drug: Magnesium Sulfate 1 grams Route: IVPB; Infused Over: 1 hrs; Site: left forearm; mg2 Disposition: 17:20 Co-signature as Attending Physician, David Webb MD I agree with the assessment and [facility] plan of care. Disposition: 04/20/20 23:54 Hospitalization ordered by Blank Wilkerson for Observation. Preliminary diagnosis are Nausea and vomiting, Diverticular disease of large intestine without perforation or abscess, Elevated white blood cell count, Bandemia. - Bed requested for Telemetry/MedSurg (observation). - Status is Observation. eb - Condition is Stable. - Problem is new. - Symptoms have improved. Signatures: Dispatcher [employer] [facility] Lashonda Townsend RN RN dw Anderson, Corey, MD MD cha Munoz, Edgar, RN RN David Apodaca PA PA cp Rosa M Khalil Michele, RN RN mg2 Corrections: (The following items were deleted from the chart) 04/20 22:36 22:36 Normal except: K 3.3; GLUC 113; GFR 59. cp cp 23:16 23:16 Abnormal: WBC 31.10; CAMI% 91.2; LYM% 3.3; NEUT A 28.4. cp cp 23:30 23:07 CORONAVIRUS+MR.LAB.BRZ ordered. [facility] 04/21 00:45 04/20 23:54 Hospitalization Ordered by Blank Wilkerson MD for Observation. Preliminary dw diagnosis is Nausea and vomiting; Diverticular disease of large intestine without perforation or abscess; Elevated white blood cell count; Bandemia. Bed requested for Telemetry/MedSurg (observation). Status is Observation. Condition is Stable. Problem is new. Symptoms have improved. cp 04/21 14:49 00:45 04/20/2020 23:54 Hospitalization Ordered by Blank Wilkerson MD for Observation. dw Preliminary diagnosis is Nausea and vomiting; Diverticular disease of large intestine without perforation or abscess; Elevated white blood cell count; Bandemia. Bed requested for [facility] ER HOLD. Status is Observation. Condition is Stable. Problem is new. Symptoms have improved. dw 15:37 14:49 04/20/2020 23:54 Hospitalization Ordered by Blank Wilkerson MD for Observation. eb Preliminary diagnosis is Nausea and vomiting; Diverticular disease of large intestine without perforation or abscess; Elevated white blood cell count; Bandemia. Bed requested for Telemetry/MedSurg (observation). Status is Observation. Condition is Stable. Problem is new. Symptoms have improved. dw
[2020-04-21] MEDS ORDERED: ALBUTEROL 2.5 MG/3 ML NEB SOL NEB PRN ×2 (00:08→17:00)
[2020-04-21] MEDS ORDERED: PROMETHAZINE INJ 25 MG/ML AMP ONE (00:11)
[2020-04-21] MEDS ORDERED: MAGNESIUM SULFATE 1 gm IVPB 1 GM/100 ML BAG IV ONE (00:20)
[2020-04-21] MEDS ORDERED: KCL 20 MEQ/100 mL IVPB 20 MEQ/100 ML BAG IV ONE (00:20)
[2020-04-21] MEDS ORDERED: NA CHLORIDE 0.9% 250 ML ONE (00:21)
--- NOTE | 2020-04-21 01:00 | P.HP ---
Certification for Inpatient Patient admitted to: Observation With expected LOS: <2 Midnights Patient will require the following post-hospital care: None Practitioner: I am a practitioner with admitting privileges, knowledge of patient current condition, hospital course, and medical plan of care. Services: Services provided to patient in accordance with Admission requirements found in Title 42 Section 412.3 of the Code of Federal Regulations Patient History Date of Service: 04/21/20 Reason for admission: nausea and vomiting History of Present Illness: 69 yr old female with HTN , HLD, recent colonoscopy 1 year ago and unremarkable admitted for recurrent nausea and vomting since last 2 weeks but worsening and more persistent since last 2 days , worse with meals , she admit to loss of appetite , throat congestion due to persistent symptoms . She describe onset of mild crampy abdominal pain , non radiating . No associated diarrhea or constipation . + decreased urine volume CT abdomen shows extensive diverticular disease but no abscess or clear diverticulutis - (official reading pending ) Allergies PENICILLINS Allergy (Severe, Uncoded 05/29/17 18:20) Hives Home Medications: Albuterol Sulfate [Ventolin Hfa] 18 gm IH DAILYPRN PRN 05/26/17 Aspirin [Aspirin EC 81 MG] 81 mg PO DAILY 05/26/17 Clotrimazole [Lotrimin 1% Cream] 15 ansley TP DAILY 05/26/17 Docosahexanoic AC/Epa [Fish Oil 1,000 MG CAP] 1,000 mg PO BID 05/26/17 Furosemide [Lasix] 20 mg PO EVERY 3RD DAY 05/26/17 Losartan/Hydrochlorothiazide [Losartan-Hctz 50-12.5 mg Tab] 1 each PO [id number] 05/26/17 Magnesium Oxide [Magnesium] 400 mg PO DAILY 05/26/17 Omeprazole [Prilosec] 40 mg PO DAILY 05/26/17 Potassium 1 tab PO DAILY 05/26/17 Psyllium Husk/Aspartame [Metamucil Fiber Singles Packet] 3.4 gm PO DAILY 05/26/17 Simvastatin 40 mg PO BEDTIME 05/26/17 Nitrofurantoin Monohyd/M-Cryst [Macrobid 100 mg Capsule] 100 mg PO DAILY #7 capsule 05/30/17 - Past Medical/Surgical History Diabetic: Yes -: on left leg around knee cap -: diet controlled NIDDM about 5 years -: 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 -: HTN -: hyperlipedema -: polyps in colon & stomach 2016 -: tonsi -: 05/02 rt sling rectocele repair, cystoscopy - Family History Mother -: Hypertension, Cancer Notes: father, mother sister and a brother all had cancer - Social History Smoking Status: Never smoker Alcohol use: No CD- Drugs: No Caffeine use: Yes Review of Systems 10-point ROS is otherwise unremarkable Physical Examination - Physical Exam General: Alert, In no apparent distress, Oriented x3 HEENT: Atraumatic, Normocephalic, PERRLA Neck: Supple, 2+ carotid pulse no bruit, JVD not distended Respiratory: Clear to auscultation bilaterally, Normal air movement Cardiovascular: No edema, Normal pulses, Regular rate/rhythm, Normal S1 S2 Gastrointestinal: Normal bowel sounds, Hypoactive, Soft and benign, No ascites, No tenderness Musculoskeletal: No clubbing, No swelling Integumentary: No rashes, No breakdown Neurological: Normal gait, Normal speech, Normal strength at 5/5 x4 extr, Normal tone, Cranial nerves 3-12 intact - Studies Laboratory Data (last 24 hrs) 04/20/20 21:45: Magnesium 1.6 L 04/20/20 21:45: WBC 31.10 H* D, Hgb 13.2, Hct 38.9, Plt Count 251 04/20/20 21:45: Sodium 139, Potassium 3.3 L, BUN 10, Creatinine 0.94, Glucose 113 H, Total Bilirubin 0.7, AST 14 L, ALT 15, Alkaline Phosphatase 135 H, Lipase 64 L Assessment and Plan - Problems (Diagnosis) (1) Diverticulitis Current Visit: Yes Status: Acute (2) Nausea & vomiting Current Visit: Yes Status: Acute (3) Leucocytosis Current Visit: Yes Status: Acute (4) Hypomagnesemia Current Visit: Yes Status: Acute (5) Hypokalemia Current Visit: Yes Status: Acute - Plan # Leucocytosis /Intractable Nausea and Vomiting- presumed due to diverticulitis -follow CT abdomen reading - start abx with flagyl and levaquin IV -start full liquid diet -follow symptoms and wbc trend # Hypokalemia and Hypomagnesmeia - due to dehydration , will replete # DVT prop - sc heparin # Full code - Advance Directives Does patient have a Living Will: No Does patient have a Durable POA for Healthcare: No Physician Review: Patient Assessed, Agree with Above Assessment and Plan Time Spent Managing Pts Care (In Minutes): 65
[2020-04-21] MEDS ORDERED: HYDRALAZINE HCL 20 MG/ML VIAL IV PRN (01:01)
[2020-04-21] MEDS: ACETAMINOPHEN 500 MG TAB PO PRN (04:32)
[2020-04-21] MEDS: Ringers Lactate 1,000 ML IV SCH ×2 (04:37→16:10)
[2020-04-21] MEDS ORDERED: ACETAMINOPHEN 500 MG TAB ONE ×2 (04:47→11:59)
[2020-04-21 04:49] VITALS: BMI 25.8
[2020-04-21] MEDS ORDERED: Ringers Lactate 1,000 ML IV ONE (04:53)
[2020-04-21] MEDS: Levofloxacin500mg IV 500 MG/100 ML BAG IV SCH (06:24)
[2020-04-21] MEDS ORDERED: Levofloxacin500mg IV 500 MG/100 ML BAG IV ONE (06:40)
--- NOTE | 2020-04-21 08:01 | RAD REPORT ---
EXAM DESCRIPTION: Tyshawn Single View04/20/2020 10:57 pm CLINICAL HISTORY: Abdominal pain COMPARISON: March 2020 FINDINGS: The lungs appear clear of acute infiltrate. The heart is normal size IMPRESSION: No acute abnormalities displayed
--- NOTE | 2020-04-21 08:20 | RAD REPORT ---
EXAM DESCRIPTION: CT - Abdomen Pelvis W Contrast - 04/21/2020 7:03 am CLINICAL HISTORY: Lower abdomen pain, N/V. COMPARISON: CT of the abdomen and pelvis from April 08, 2020. TECHNIQUE: CT of the abdomen and pelvis was performed following intravenous administration of iodina ester contrast. Late arterial phase through the abdomen, and portal venous phase through the abdomen an d pelvis were obtained. Oral contrast was not administered. Axial, coronal, and sagittal soft tissue window reconstructions were created and sent to PACS. This exam was performed according to our departmental dose-optimization program, which includes autom ated exposure control, adjustment of the mA and/or kV according to patient size and/or use of iterati ve reconstruction technique. FINDINGS: Thoracic: No significant abnormality. Hepatobiliary: No concerning hepatic lesion identified. The hepatic and portal veins are patent. The gallbladder is unremarkable. No biliary ductal dilatation. Pancreas: Unremarkable. Spleen: Unremarkable. Gastrointestinal: No evidence of bowel obstruction or perienteric inflammation. The appendix is not i dentified, but there are no pericecal inflammatory changes. Prominent diverticulosis involving the le ft colon. Moderate colonic diverticulosis elsewhere throughout the colon. Adrenals: Possible tiny myelolipoma in the left adrenal gland, measuring 0.7 cm, versus adjacent fat. No abnormality identified in the right adrenal gland. Renal: Tiny left renal cortical hypodensities, too small to accurately characterize but statistically likely cysts. No follow-up imaging recommended. No concerning parenchymal abnormality in either kidn ey. No hydronephrosis or urolithiasis. Bladder/Reproductive: Unremarkable appearance of the urinary bladder by CT technique. Grossly unremar kable CT appearance of the uterus and ovaries. Vascular/Lymphatics: No lymphadenopathy identified by CT size criteria. 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 No follow-up imaging is recommended. Mild atherosclerosis. The major v isceral vessels are patent. Musculoskeletal: No concerning osseous lesion identified. Spinal degenerative changes. Fluid / peritoneum: No significant free fluid. No free intraperitoneal air identified. IMPRESSION 1. No acute abnormality identified in the abdomen or pelvis by CT. 2. Extensive colonic diverticulosis with no CT evidence of acute diverticulitis. 3. Unchanged chronic findings. Electronically signed by: Naila Hsieh MD 04/20/2020 11:16 PM [employer] APPRENTICE Due to temporary technical issues with the PACS/Fluency reporting system, reports are being signed by the in house radiologist without review as a courtesy to ensure prompt reporting. The interpreting r adiologist is fully responsible for the content of the report.
[2020-04-21] MEDS ORDERED: INFLUENZA VACCINE (for 3y+) 0.5 ML DOSE IMVAC ONE (09:00)
[2020-04-21] MEDS: ENOXAPARIN 40 MG/0.4 ML SQ SCH (09:00)
[2020-04-21] MEDS: METRONIDAZOLE 250mg IVPB 250 MG/50 ML BAG IV SCH ×2 (09:00→16:10)
[2020-04-21] MEDS ORDERED: ENOXAPARIN 40 MG/0.4 ML SQ ONE (09:40)
[2020-04-21] MEDS ORDERED: VANCOMYCIN 1 GM in NA CHLORIDE 0.9% 500 ML IVPB ONE (16:16)
[2020-04-21] MEDS: VANCOMYCIN 1.25 GM in NA CHLORIDE 0.9% 250 ML IVPB SCH (16:53)
[2020-04-21] MEDS ORDERED: WATER FOR INJ,STERILE 10 ML IV SCH (17:00)
[2020-04-21] MEDS ORDERED: HYDROCORTISONE SUC 100 MG INJ IV ONE (17:00)
--- NOTE | 2020-04-21 18:57 | RAD REPORT ---
EXAM DESCRIPTION: US - Extrem Venous W Compress [place] - 04/21/2020 6:39 pm CLINICAL HISTORY: dvt-RIGHT LEG Bilateral leg edema and swelling. COMPARISON: No comparisons TECHNIQUE: Real-time sonographic interrogation of the left and right lower extremity deep venous sys tems was performed. FINDINGS: Normal compressibility, flow augmentation, phasic flow and spontaneous flow is identified in both the left and right lower extremity deep venous systems. IMPRESSION: No sonographic evidence of left or right lower extremity deep venous thrombosis.
[2020-04-21] MEDS: MORPHINE 2 MG/ML SYR IV PRN (21:52)
[2020-04-22] MEDS: METRONIDAZOLE 250mg IVPB 250 MG/50 ML BAG IV SCH ×3 (01:39→18:22)
[2020-04-22] MEDS ORDERED: NA CHLORIDE 0.9% 1,000 ML ONE (03:29)
[2020-04-22 06:05] LABS: Absolute Lymphocytes (CBC) 1.4 K/uL (0.7-4.9); Basophils % 0.3 % (0-1.3); Hematocrit 32.8 % (36.0-45.0); Lymphocytes % 9.1 % (15.3-44.8); MPV 9.7 fL (7.6-11.3); RBC Red Blood Cell Count 3.69 M/uL (3.86-4.86)
[2020-04-22 06:16] LABS: ALT/SGPT 14 U/L (12-78); AST/SGOT 11 U/L (15-37); Albumin 2.8 g/dL (3.4-5.0); Alkaline Phosphatase 110 U/L (45-117); BUN Blood Urea Nitrogen 4 mg/dL (7-18); Bicarbonate 27 mmol/L (21-32); Bilirubin Total 0.4 mg/dL (0.2-1.0); Glucose Level 85 mg/dL (74-106); Protein, Total 6.3 g/dL (6.4-8.2); Sodium Level 141 mmol/L (136-145)
[2020-04-22 06:21] LABS: Magnesium 1.6 mg/dL (1.8-2.4); Phosphorus 1.4 mg/dL (2.5-4.9)
[2020-04-22] MEDS: Levofloxacin500mg IV 500 MG/100 ML BAG IV SCH (08:13)
[2020-04-22] MEDS: ENOXAPARIN 40 MG/0.4 ML SQ SCH (09:03)
[2020-04-22] MEDS: Ringers Lactate 1,000 ML IV SCH ×2 (09:03→20:40)
[2020-04-22] MEDS: ONDANSETRON 4 MG/2 ML VIAL IV PRN (10:16)
[2020-04-22] MEDS ORDERED: Magnesium Sulfate 2gm IVPB 2 G/50 ML BAG IV ONE (11:41)
--- NOTE | 2020-04-22 11:47 | P.PN ---
Subjective Date of Service: 04/21/20 Patient continues to improve. Tolerating diet. However, some erythema on the right leg and will monitor Review of Systems 10-point ROS is otherwise unremarkable Physical Examination - Vital Signs Temperature: 98.5 F Blood Pressure: 150/73 Pulse: 87 Respirations: 18 Pulse Ox (%): 98 - Physical Exam General: Alert, In no apparent distress, Oriented x3 Respiratory: Clear to auscultation bilaterally, Normal air movement Cardiovascular: Regular rate/rhythm, Normal S1 S2, No murmurs Gastrointestinal: Normal bowel sounds, Soft and benign, Non-distended, No tenderness Musculoskeletal: No clubbing, Swelling, Erythema, Tenderness Integumentary: Tenderness/swelling, Erythema, Warmth Neurological: Sensation intact, Cranial nerves 3-12 intact - Studies Medications List Reviewed: Yes Assessment & Plan - Problems (Diagnosis) (1) Diverticulitis Current Visit: Yes Status: Acute (2) Diverticulitis large intestine w/o perforation or abscess w/bleeding Current Visit: Yes Status: Acute (3) Cellulitis Current Visit: Yes Status: Acute - Plan 1. Continue with IV hydration 2. Continue with IV antibiotics 3. Continue with pain control 4. Clear liquid diet 5. Blood cultures pending 6. Serial H&H, and we will monitor CBC, BMP, LFTs and lipase along with electrolytes. 7. Monitor right lower extremity cellulitis 8. GI and DVT prophylaxis Discharge Plan: Home Plan to discharge in: Greater than 2 days - Advance Directives Does patient have a Living Will: No Does patient have a Durable POA for Healthcare: No - Code Status/Comfort Care Code Status Assessed: Yes Code Status: Full Code Physician Review: Patient Assessed, Agree with Above Assessment and Plan Critical Care: No Time Spent Managing PTS Care (In Minutes): 35
[2020-04-22] MEDS ORDERED: POTASSIUM PHOS 30 MM in NA CHLORIDE 0.9% 500 ML IV ONE (12:30)
[2020-04-22] MEDS: VANCOMYCIN 1.25 GM in NA CHLORIDE 0.9% 250 ML IVPB SCH (12:52)
[2020-04-22] MEDS: ACETAMINOPHEN 500 MG TAB PO PRN (13:15)
[2020-04-22] MEDS: MORPHINE 2 MG/ML SYR IV PRN (20:44)
[2020-04-23] MEDS: METRONIDAZOLE 250mg IVPB 250 MG/50 ML BAG IV SCH ×3 (01:21→17:17)
[2020-04-23] MEDS: Levofloxacin500mg IV 500 MG/100 ML BAG IV SCH (05:41)
[2020-04-23] MEDS: Ringers Lactate 1,000 ML IV SCH (05:42)
[2020-04-23] MEDS: ENOXAPARIN 40 MG/0.4 ML SQ SCH (08:47)
[2020-04-23] MEDS ORDERED: HYDROCORTISONE SUC 100 MG INJ IV ONE (12:32)
--- NOTE | 2020-04-23 12:35 | P.PN ---
Subjective Date of Service: 04/22/20 Patient feeling a little bit better. However, she has notice that the erythema on her leg is a little worse. She does appear to have some cellulitis on the right lower extremity that could also be a vasculitic picture. Will go ahead and start her on vancomycin IV steroids along with Levaquin and Flagyl for the questionable diverticulitis Review of Systems 10-point ROS is otherwise unremarkable Physical Examination - Vital Signs Temperature: 97.6 F Blood Pressure: 141/88 Pulse: 86 Respirations: 18 Pulse Ox (%): 98 - Physical Exam General: Alert, In no apparent distress, Oriented x3 Respiratory: Clear to auscultation bilaterally, Normal air movement Cardiovascular: Regular rate/rhythm, Normal S1 S2, No murmurs Gastrointestinal: Normal bowel sounds, Soft and benign, Non-distended, No tenderness Musculoskeletal: No clubbing, Swelling, Erythema, Tenderness Integumentary: Tenderness/swelling, Erythema, Warmth Neurological: Sensation intact, Cranial nerves 3-12 intact - Studies Medications List Reviewed: Yes Assessment & Plan - Problems (Diagnosis) (1) Diverticulitis Current Visit: Yes Status: Acute (2) Diverticulitis large intestine w/o perforation or abscess w/bleeding Current Visit: Yes Status: Acute (3) Cellulitis Current Visit: Yes Status: Acute - Plan Continue with plan of care as mentioned below: 1. Continue with gentle IV hydration 2. Continue with IV antibiotics 3. Continue with pain control 4. Clear liquid diet 5. Blood cultures pending 6. Monitor labs and continue inflammatory markers 7. Will add IV steroids 8. GI and DVT prophylaxis Discharge Plan: Home Plan to discharge in: Greater than 2 days - Advance Directives Does patient have a Living Will: No Does patient have a Durable POA for Healthcare: No - Code Status/Comfort Care Code Status: Full Code Physician Review: Patient Assessed, Agree with Above Assessment and Plan Critical Care: No Time Spent Managing PTS Care (In Minutes): 35
[2020-04-23 13:04] LABS: Basophils % 0.5 % (0-1.3); Hematocrit 35.4 % (36.0-45.0); Lymphocytes % 17.6 % (15.3-44.8); RBC Red Blood Cell Count 3.95 M/uL (3.86-4.86)
[2020-04-23 13:19] LABS: Magnesium 1.8 mg/dL (1.8-2.4); Phosphorus 1.7 mg/dL (2.5-4.9); Potassium 3.3 mmol/L (3.5-5.1)
[2020-04-23] MEDS: VANCOMYCIN 1.25 GM in NA CHLORIDE 0.9% 250 ML IVPB SCH (17:17)
[2020-04-23] MEDS ORDERED: HYDROCORTISONE SUC 100 MG INJ IV SCH (21:00)
[2020-04-24] MEDS: METRONIDAZOLE 250mg IVPB 250 MG/50 ML BAG IV SCH (01:08)
[2020-04-24] MEDS: VANCOMYCIN 1.25 GM in NA CHLORIDE 0.9% 250 ML IVPB SCH ×2 (05:09→17:48)
[2020-04-24] MEDS: Ringers Lactate 1,000 ML IV SCH (05:09)
--- NOTE | 2020-04-24 05:17 | P.PN ---
Date of Service: 04/23/20 Subjective Patient is improving. Cellulitis is improved. No significant diverticulitis noted. Review of Systems 10-point ROS is otherwise unremarkable Physical Examination - Vital Signs Reviewed - Physical Exam General: Alert, In no apparent distress, Oriented x3 Respiratory: Clear to auscultation bilaterally, Normal air movement Cardiovascular: Regular rate/rhythm, Normal S1 S2, No murmurs Gastrointestinal: Normal bowel sounds, Soft and benign, Non-distended, No tenderness Musculoskeletal: No clubbing, Swelling, Erythema, Tenderness Integumentary: Tenderness/swelling, Erythema, Warmth s Assessment & Plan - Problems (Diagnosis) (1) Diverticulitis Current Visit: Yes Status: Acute (2) Diverticulitis large intestine w/o perforation or abscess w/bleeding Current Visit: Yes Status: Acute (3) Cellulitis Current Visit: Yes Status: Acute - Plan Continue with plan of care as mentioned below: 1. Continue with gentle IV hydration 2. Continue with IV antibiotics 3. Continue with pain control 4. Advance diet as tolerated 5. Blood cultures pending 6. Monitor labs and continue inflammatory markers 7. Will add IV steroids 8. GI and DVT prophylaxis
[2020-04-24 06:54] LABS: Absolute Lymphocytes (CBC) 2.5 K/uL (0.7-4.9); Basophils % 0.7 % (0-1.3); Hematocrit 34.4 % (36.0-45.0); MPV 9.2 fL (7.6-11.3); RBC Red Blood Cell Count 3.86 M/uL (3.86-4.86)
[2020-04-24] MEDS: Levofloxacin500mg IV 500 MG/100 ML BAG IV SCH (07:12)
[2020-04-24 07:38] LABS: ALT/SGPT 11 U/L (12-78); AST/SGOT 10 U/L (15-37); Albumin 2.6 g/dL (3.4-5.0); Alkaline Phosphatase 105 U/L (45-117); BUN Blood Urea Nitrogen 5 mg/dL (7-18); Bicarbonate 28 mmol/L (21-32); Bilirubin Total 0.3 mg/dL (0.2-1.0); Glucose Level 96 mg/dL (74-106); Phosphorus 2.8 mg/dL (2.5-4.9); Potassium 3.5 mmol/L (3.5-5.1); Protein, Total 6.1 g/dL (6.4-8.2); Sodium Level 143 mmol/L (136-145)
--- NOTE | 2020-04-24 08:10 | P.PN ---
Subjective Date of Service: 04/24/20 Primary Care Provider: Dr. Aguirre Chief Complaint: nausea and vomiting Subjective: Improving (No significant nausea or vomiting.) Physical Examination - Vital Signs Temperature: 96.4 F Blood Pressure: 136/78 Pulse: 75 Respirations: 18 Pulse Ox (%): 98 - Studies Medications List Reviewed: Yes Assessment & Plan Discharge Plan: Home Plan to discharge in: 24 Hours Physician Review Additional Text: Physical exam: Patient alert, cooperative. No significant distress noted. Heart: Regular rate rhythm. Lungs: Clear to auscultation Abdomen: No significant distention. Bowel sounds normal. Minimal pain to the left quadrant. No significant rebound Extremities: Erythema to the right lower extremity below the knee improved. No significant edema noted. Improvement in cellulitis noted. Impression: Nausea, vomiting, abdominal pain secondary to acute diverticulitis Right lower extremity cellulitis Hypertension Hyperlipidemia Depression Plan: Nausea, vomiting, abdominal pain secondary to acute diverticulitis: White count now within normal range. Lab overall stable. Continue with IV antibiotic therapy and pain control. Will advance the diet to soft. Encourage ambulation. Provide incentive spirometer. Will educate on diverticulitis. Continue DVT prophylaxis. Possible discharge as early as today if much improved or tomorrow. Will need colonoscopy in 6-8 weeks with GI. Right lower extremity cellulitis: Continue to elevate leg when sitting or lying. Continue antibiotic treatment. Hypertension: Home medication restarted. Will monitor and adjust appropriately. Hyperlipidemia: Home medication restarted. Depression: Home medication restarted. Time Spent Managing Pts Care (In Minutes): 55
[2020-04-24] MEDS ORDERED: TRAMADOL HCL 50 MG TAB PO PRN (08:12)
[2020-04-24] MEDS ORDERED: HYDROCODONE/APAP 7.5/325 MG TAB PO PRN (08:12)
[2020-04-24] MEDS: METRONIDAZOLE 500mg IVPB 500 MG/100 ML BAG IV SCH ×2 (09:05→17:15)
[2020-04-24] MEDS: LOSARTAN POTASSIUM 50 MG TABLET PO SCH (09:06)
[2020-04-24] MEDS: LORATADINE 10 MG TAB PO SCH (09:06)
[2020-04-24] MEDS: ENOXAPARIN 40 MG/0.4 ML SQ SCH (09:06)
[2020-04-24] MEDS: SERTRALINE HCL 50 MG TAB PO SCH (11:09)
[2020-04-24] MEDS: FAMOTIDINE 20 MG TAB PO SCH ×2 (11:09→20:27)
[2020-04-24] MEDS: PANTOPRAZOLE 40MG TABLET PO SCH (11:15)
[2020-04-24] MEDS: ONDANSETRON 4 MG/2 ML VIAL IV PRN (12:36)
[2020-04-24] MEDS ORDERED: PROMETHAZINE INJ 25 MG/ML AMP IV PRN (14:57)
[2020-04-24] MEDS: D5 0.45 NS 1,000 ML IV SCH (17:14)
[2020-04-24] MEDS ORDERED: ATORVASTATIN 20 MG TAB PO SCH (21:00)
[2020-04-25] MEDS: METRONIDAZOLE 500mg IVPB 500 MG/100 ML BAG IV SCH ×2 (01:26→09:40)
[2020-04-25 04:40] LABS: Absolute Lymphocytes (CBC) 2.9 K/uL (0.7-4.9); Basophils % 0.5 % (0-1.3); Hematocrit 34.8 % (36.0-45.0); Lymphocytes % 30.4 % (15.3-44.8); MPV 9.2 fL (7.6-11.3); RBC Red Blood Cell Count 3.86 M/uL (3.86-4.86)
[2020-04-25 04:56] LABS: Potassium 3.2 mmol/L (3.5-5.1)
[2020-04-25] MEDS: VANCOMYCIN 1.25 GM in NA CHLORIDE 0.9% 250 ML IVPB SCH (05:00)
[2020-04-25] MEDS: Levofloxacin500mg IV 500 MG/100 ML BAG IV SCH (06:32)
[2020-04-25] MEDS: PANTOPRAZOLE 40MG TABLET PO SCH (06:32)
[2020-04-25] MEDS: D5 0.45 NS 1,000 ML IV SCH (06:34)
[2020-04-25 08:30] VITALS: O2SAT 98
[2020-04-25] MEDS: ENOXAPARIN 40 MG/0.4 ML SQ SCH (09:40)
[2020-04-25] MEDS: SERTRALINE HCL 50 MG TAB PO SCH (09:41)
[2020-04-25] MEDS: FAMOTIDINE 20 MG TAB PO SCH (09:41)
[2020-04-25] MEDS: LOSARTAN POTASSIUM 50 MG TABLET PO SCH (09:41)
[2020-04-25] MEDS: LORATADINE 10 MG TAB PO SCH (09:41)
--- NOTE | 2020-04-25 11:15 | P.DS ---
Admission Date: 04/21/20 Discharge Date: 04/25/20 Primary Care Provider: Dr. Aguirre Disposition: ROUTINE DISCHARGE Discharge Condition: GOOD Reason for Admission: nausea and vomiting Consultations: none Procedures: COVID: Negative CT Scan: FINDINGS: Thoracic: No significant abnormality. Hepatobiliary: No concerning hepatic lesion identified. The hepatic and portal veins are patent. The gallbladder is unremarkable. No biliary ductal dilatation. Pancreas: Unremarkable. Spleen: Unremarkable. Gastrointestinal: No evidence of bowel obstruction or perienteric inflammation. The appendix is not identified, but there are no pericecal inflammatory changes. Prominent diverticulosis involving the left colon. Moderate colonic diverticulosis elsewhere throughout the colon. Adrenals: Possible tiny myelolipoma in the left adrenal gland, measuring 0.7 cm, versus adjacent fat. No abnormality identified in the right adrenal gland. Renal: Tiny left renal cortical hypodensities, too small to accurately characterize but statistically likely cysts. No follow-up imaging recommended. No concerning parenchymal abnormality in either kidney. No hydronephrosis or urolithiasis. Bladder/Reproductive: Unremarkable appearance of the urinary bladder by CT technique. Grossly unremarkable CT appearance of the uterus and ovaries. Vascular/Lymphatics: No lymphadenopathy identified by CT size criteria. 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 No follow-up imaging is recommended. Mild atherosclerosis. The major visceral vessels are patent. Musculoskeletal: No concerning osseous lesion identified. Spinal degenerative changes. Fluid / peritoneum: No significant free fluid. No free intraperitoneal air identified. IMPRESSION 1. No acute abnormality identified in the abdomen or pelvis by CT. 2. Extensive colonic diverticulosis with no CT evidence of acute diverticulitis. 3. Unchanged chronic findings. Venous doppler: FINDINGS: Normal compressibility, flow augmentation, phasic flow and spontaneous flow is identified in both the left and right lower extremity deep venous systems. IMPRESSION: No sonographic evidence of left or right lower extremity deep venous thrombosis. Medical Problem List: Nausea, vomiting, abdominal pain secondary to acute diverticulitis Right lower extremity cellulitis Hypertension Hyperlipidemia Depression Brief History of Present Illness: 69 yo HF presented with nausea and vomiting. She was admitted for acute diverticulitis. Hospital Course: Patient presented with nausea, vomiting and abdominal pain. Patient found to have acute diverticulitis. Patient received IV antibiotic therapy with improvement. Patient also had right lower extremity cellulitis. Her condition has improved. At discharge white count is within normal range. Patient without significant nausea vomiting. Patient able to tolerate her diet. At discharge patient will continue with Levaquin 500 mg 1 pill once daily and Flagyl 500 mg twice daily for 7 days. Patient may continue with a full liquid diet then advance to soft diet. For her diverticulitis the patient will need a follow up with GI in 2-4 weeks. Patient should have colonoscopy in 6-8 weeks. For her cellulitis she needs to elevate her leg when sitting or lying. Recommend follow up with PCP in 1 week to follow up this hospitalization. Education on diverticulitis and cellulitis will be provided. Patient with hypertension. At discharge she will continue with her current medication. Patient with hyperlipidemia. At discharge she will continue with her medication. Patient with depression. At discharge she will continue with her medication. Vital Signs/Physical Exam: Temp Pulse Resp BP Pulse Ox 97.1 F 62 18 138/83 95 04/25/20 08:00 04/25/20 08:00 04/25/20 08:00 04/25/20 08:00 04/25/20 08:00 General: Alert, In no apparent distress, Oriented x3, Cooperative HEENT: Atraumatic Laboratory Data at Discharge: WBC 9.50 K/uL (4.3-10.9) 04/25/20 04:10 Hgb 11.6 g/dL (12.0-15.0) L 04/25/20 04:10 Hct 34.8 % (36.0-45.0) L 04/25/20 04:10 Plt Count 242 K/uL (152-406) 04/25/20 04:10 Sodium 145 mmol/L (136-145) 04/25/20 04:10 Potassium 3.2 mmol/L (3.5-5.1) L 04/25/20 04:10 BUN 4 mg/dL (7-18) L 04/25/20 04:10 Creatinine 0.88 mg/dL (0.55-1.3) 04/25/20 04:10 Glucose 101 mg/dL (74-106) 04/25/20 04:10 Phosphorus 2.8 mg/dL (2.5-4.9) D 04/24/20 06:40 Magnesium 2.0 mg/dL (1.8-2.4) 04/24/20 06:40 Total Bilirubin 0.3 mg/dL (0.2-1.0) 04/24/20 06:40 AST 10 U/L (15-37) L 04/24/20 06:40 ALT 11 U/L (12-78) L 04/24/20 06:40 Alkaline Phosphatase 105 U/L (45-117) 04/24/20 06:40 Lipase 64 U/L (73-393) L 04/20/20 21:45 Home Medications: Cinacalcet HCl 60 mg PO DAILY 04/21/20 Loratadine [Claritin*] 10 mg PO DAILY 04/21/20 Losartan Potassium [Cozaar] 25 mg PO DAILY 04/21/20 Omeprazole [Prilosec] 40 mg PO DAILY 04/21/20 Sertraline HCl 50 mg PO DAILY 04/21/20 Simvastatin 40 mg PO BEDTIME 04/21/20 Physician Discharge Instructions: Follow up with PCP in 1 week. Patient presented with nausea, vomiting and abdominal pain. Patient found to have acute diverticulitis. Patient received IV antibiotic therapy with improvement. Patient also had right lower extremity cellulitis. Her condition has improved. At discharge white count is within normal range. Patient without significant nausea vomiting. Patient able to tolerate her diet. At discharge patient will continue with Levaquin 500 mg 1 pill once daily and Flagyl 500 mg twice daily for 7 days. Patient may continue with a full liquid diet then advance to soft diet. For her diverticulitis the patient will need a follow up with GI in 2-4 weeks. Patient should have colonoscopy in 6-8 weeks. For her cellulitis she needs to elevate her leg when sitting or lying. Recommend follow up with PCP in 1 week to follow up this hospitalization. Education on diverticulitis and cellulitis will be provided. Patient with hypertension. At discharge she will continue with her current medication. Patient with hyperlipidemia. At discharge she will continue with her medication. Patient with depression. At discharge she will continue with her medication. Diet: soft diet Activity: Ad jody Followup: RHONDA ELLIS [Primary Care Provider] - Time spent managing pt's care (in minutes): 55
[2020-04-25 13:14] VITALS: BP 138/71; TEMP 97.4
[2020-04-25] MEDS ORDERED: VANCOMYCIN 1.25 GM in NA CHLORIDE 0.9% 250 ML IVPB SCH (18:00)
== END 2020-04-25 15:12 | disposition home or self-care (01) | DRG 392 ==
LOC: ER 21:11 → ERHOLD 04-21 00:28 → 2ND 04-21 15:33
PROVIDERS: ADMIT Internal Medicine; ATTEND Family Medicine
DX: K57.32 Diverticulitis of large intestine without perforation or abscess without bleeding (principal); L03.115 Cellulitis of right lower limb; I10 Essential (primary) hypertension; D72.829 Elevated white blood cell count, unspecified; E87.6 Hypokalemia; E86.0 Dehydration; F32.9 Major depressive disorder, single episode, unspecified; E11.9 Type 2 diabetes mellitus without complications; E83.42 Hypomagnesemia; E78.5 Hyperlipidemia, unspecified; Z88.0 Allergy status to penicillin; Z90.49 Acquired absence of other specified parts of digestive tract; Z79.82 Long term (current) use of aspirin; Z20.822 Contact with and (suspected) exposure to COVID-19
CPT/HCPCS: 36415; 71045; 74177; 80048; 80053; 80076; 80202; 81003; 81015; 82947; 83605; 83690; 83735; 83880; 84100; 84145; 84443; 85025; 85652; 86140; 87040; 93970; 94010; 94760; 97116; 97161; 99285; J0744; J1650; J1720; J2270; J2405; J3370; J3475; J3480; J7030; J7040; J7050; J7120; J7799; Q9967; U0003

== ENCOUNTER 2020-04-26 21:16 | Emergency (ER) | payer OTHER ==
[2020-04-26] MEDS ORDERED: NA CHLORIDE 0.9% 1,000 ML ONE (23:43)
[2020-04-26] MEDS ORDERED: ONDANSETRON 4 MG/2 ML VIAL ONE (23:43)
[2020-04-26 23:48] LABS: Absolute Lymphocytes (CBC) 1.7 K/uL (0.7-4.9); Basophils % 0.5 % (0-1.3); Hematocrit 36.9 % (36.0-45.0); Lymphocytes % 12.4 % (15.3-44.8); RBC Red Blood Cell Count 4.14 M/uL (3.86-4.86)
[2020-04-26 23:57] LABS: Albumin 3.1 g/dL (3.4-5.0); Bilirubin Direct 0.1 mg/dL (0-0.2); Bilirubin Total 0.4 mg/dL (0.2-1.0); Potassium 3.3 mmol/L (3.5-5.1); Protein, Total 7.1 g/dL (6.4-8.2)
--- NOTE | 2020-04-27 01:12 | ER ---
Nurse's Notes [facility] Name: Hannah Wick Age: 69 yrs Sex: Female : 1950 Arrival Date: 04/26/2020 Time: 21:16 Bed 24 Private MD: Diagnosis: Nausea with vomiting, unspecified;Dehydration Presentation: 04/26 21:36 Chief complaint: Patient states: Dizziness since 3 pm. Accidentally took zoloft, then ll1 N/V started. Coronavirus screen: Client denies travel out of the [place] in the last 14 days. At this time, the client does not indicate any symptoms associated with coronavirus-19. Ebola Screen: Patient denies travel to an Ebola-affected area in the 21 days before illness onset. Initial Sepsis Screen: Does the patient meet any 2 criteria? HR > 90 bpm. No. Patient's initial sepsis screen is negative. Does the patient have a suspected source of infection? Yes: Other: M[place] with N/V. Risk Assessment: Do you want to hurt yourself or someone else? Patient reports no desire to harm self or others. Onset of symptoms was April 26, 2020. 21:36 Method Of Arrival: Ambulatory ll1 21:36 Acuity: MARIPOSA 3 ll1 Historical: - Allergies: 21:38 PENICILLINS; ll1 - PMHx: 21:38 Hyperlipidemia; Hypertension; ll1 - PSHx: 21:38 Cholecystectomy; abdominal sx; ll1 - Immunization history:: Flu vaccine is up to date. - Social history:: Smoking status: Patient denies any tobacco usage or history of. - Family history:: not pertinent. - Hospitalizations: : The patient was recently seen at [facility]. Screenin:58 Abuse screen: Denies threats or abuse. Denies injuries from another. Nutritional iw screening: No deficits noted. Tuberculosis screening: No symptoms or risk factors identified. Fall Risk None identified. Assessment: 23:57 General: Appears in no apparent distress. Behavior is calm, cooperative. Pain: iw Complains of pain in left lower quadrant. Neuro: Level of Consciousness is awake, alert, obeys commands, Oriented to person, place, time, situation, Moves all extremities. Cardiovascular: Patient's skin is warm and dry. Respiratory: Respiratory effort is even, unlabored, Respiratory pattern is regular. GI: Abdomen is non-distended. GI: Reports lower abdominal pain, nausea, vomiting. Derm: Skin is intact, is thin. Musculoskeletal: Range of motion: intact in all extremities. Vital Signs: 21:36 BP 140 / 108; Pulse 107; Resp 18; Temp 99.1; Pulse Ox 100% ; Weight 72.12 kg; Height 5 ll1 ft. 4 in. (162.56 cm); Pain 6/10; 21:36 Body Mass Index 27.29 (72.12 kg, 162.56 cm) ll1 ED Course: 21:16 Patient arrived in ED. cl3 21:38 Triage completed. ll1 21:38 Arm band placed on. ll1 22:54 Wenceslao Liang MD is Attending Physician. rn 23:12 Nanda Malloy RN is Primary Nurse. iw 23:23 Initial lab(s) drawn, by me, sent to lab. Inserted saline lock: 22 gauge in right iw antecubital area, using aseptic technique. Blood collected. 04/27 00:35 CT Abd/Pelvis - IV Contrast Only In Process Unspecified. EDMS Administered Medications: 04/26 23:35 Drug: Zofran (Ondansetron) 4 mg Route: IVP; Site: right antecubital; iw 23:35 Drug: NS 0.9% 1000 ml Route: IV; Rate: 1 bolus; Site: right antecubital; iw Outcome: 04/27 01:12 Discharge ordered by . rn 02:04 Patient left the ED. ea Signatures: Dispatcher [employer] EDMS Nanda Malloy RN RN iw Wenceslao Liang MD MD rn Antunez, Elena, RN RN ea Lewis, Charde 3 Oswald Holt RN RN ll1
--- NOTE | 2020-04-27 01:12 | EDPHYS ---
Physician Documentation [facility] Name: Hannah Wick Age: 69 yrs Sex: Female : 1950 Arrival Date: 04/26/2020 Time: 21:16 Bed 24 Private MD: ED Physician Wenceslao Liang HPI: 04/26 23:10 This 69 yrs old Female presents to ER via Ambulatory with complaints of rn Dizziness, Vomiting. 23:10 The patient presents to the emergency department with nausea, vomiting, abdominal pain. rn Onset: The symptoms/episode began/occurred today. Possible causes: unknown. The symptoms are aggravated by nothing. The symptoms are alleviated by nothing. Severity of symptoms: At their worst the symptoms were moderate in the emergency department the symptoms are unchanged. The patient has not experienced similar symptoms in the past. The patient has been recently seen by a physician:. Reports seen and being treated for diverticulitis, taking abx, had been prescribed zoloft by PCP at beginning of this but didn't want to take it until abd infection was over. Soon after taking zoloft for first time felt nauseous, and had several episodes of emesis, still having abd pain and diarrhea, but not significantly worse than before. Reports feels generalized weakness and dizziness after vomiting. . Historical: - Allergies: 21:38 PENICILLINS; ll1 - PMHx: 21:38 Hyperlipidemia; Hypertension; ll1 - PSHx: 21:38 Cholecystectomy; abdominal sx; ll1 - Immunization history:: Flu vaccine is up to date. - Social history:: Smoking status: Patient denies any tobacco usage or history of. - Family history:: not pertinent. - Hospitalizations: : The patient was recently seen at [facility]. ROS: 23:10 Constitutional: Negative for fever, chills, and weight loss, Eyes: Negative for injury, rn pain, redness, and discharge, Neck: Negative for injury, pain, and swelling, Cardiovascular: Negative for chest pain, palpitations, and edema, Respiratory: Negative for shortness of breath, cough, wheezing, and pleuritic chest pain, Abdomen/GI: Negative for constipation Back: Negative for injury and pain, : Negative for injury, bleeding, discharge, and swelling, MS/Extremity: Negative for injury and deformity, Skin: Negative for injury, rash, and discoloration, Neuro: Negative for headache, numbness, tingling, and seizure Exam: 23:10 Constitutional: This is a well developed, well nourished patient who is awake, alert, rn and in no acute distress. Head/Face: Normocephalic, atraumatic. ENT: dry MM Cardiovascular: tachycardic, regular Respiratory: No increased work of breathing, no retractions or nasal flaring. Abdomen/GI: soft, mild LLQ tenderness, no reobund or masses Skin: Warm, dry MS/ Extremity: Pulses equal, no cyanosis. Neurovascular intact. Full, normal range of motion. Equal circumference. Neuro: Awake and alert, GCS 15 Vital Signs: 21:36 BP 140 / 108; Pulse 107; Resp 18; Temp 99.1; Pulse Ox 100% ; Weight 72.12 kg; Height 5 ll1 ft. 4 in. (162.56 cm); Pain 6/10; 21:36 Body Mass Index 27.29 (72.12 kg, 162.56 cm) ll1 MDM: 22:55 Patient medically screened. rn 04/27 01:10 Differential diagnosis: diverticulitis, viral gastroenteritis, medication side effect, rn viral illness. Data reviewed: vital signs, nurses notes, lab test result(s), radiologic studies, CT scan, and as a result, I will discharge patient. Counseling: I had a detailed discussion with the patient and/or guardian regarding: the historical points, exam findings, and any diagnostic results supporting the discharge/admit diagnosis, lab results, radiology results, the need for outpatient follow up, to return to the emergency department if symptoms worsen or persist or if there are any questions or concerns that arise at home. Response to treatment: the patient's symptoms have markedly improved after treatment, and as a result, I will discharge patient. Special discussion: Based on the patient's Hx, exam, and Dx evaluation, there is no indication for emergent surgery or inpatient Tx. It is understood by the patient/guardian that if the Sx's persist or worsen they need to return immediately for re-evaluation. I discussed with the patient/guardian in detail that at this point there is no indication for admission to the hospital. It is understood, however, that if the symptoms persist or worsen the patient needs to return immediately for re-evaluation. ED course: Pt without acute findings CT abdomen to suggest worsening of recent diagnosis of diverticulitis, feels better after zofran and fluids, possibly reaction to her zoloft as happened shortly after taking for first time, will dc home with return precautions. . 04/26 23:03 Order name: Basic Metabolic Panel; Complete Time: 23:59 rn 04/26 23:03 Order name: CBC with Diff; Complete Time: 23:59 rn 04/26 23:03 Order name: Hepatic Function; Complete Time: 23:59 rn 04/26 23:03 Order name: Lipase; Complete Time: 23:59 rn 04/26 23:03 Order name: CT Abd/Pelvis - IV Contrast Only rn 04/26 23:03 Order name: IV Saline Lock; Complete Time: 23:25 rn 04/26 23:03 Order name: Labs collected and sent; Complete Time: 23:25 rn Administered Medications: 04/26 23:35 Drug: Zofran (Ondansetron) 4 mg Route: IVP; Site: right antecubital; iw 23:35 Drug: NS 0.9% 1000 ml Route: IV; Rate: 1 bolus; Site: right antecubital; iw Disposition: 04/27/20 01:12 Discharged to Home. Impression: Nausea with vomiting, unspecified, Dehydration. - Condition is Stable. - Discharge Instructions: Dehydration, Adult, Nausea and Vomiting, Adult. - Prescriptions for Zofran ODT 4 mg Oral tablet,disintegrating - place 1 tablet by TRANSLINGUAL route every 8 hours As needed; 20 tablet. - Medication Reconciliation Form, Thank You Letter, Antibiotic Education, Prescription Opioid Use form. - Follow up: Private Physician; When: As needed; Reason: Recheck today's complaints, Re-evaluation by your physician. - Problem is new. - Symptoms have improved. Signatures: Dispatcher [employer] EDNanda Gale RN RN iw Nieto, Roman, MD MD rn Antunez, Elena, RN RN ea Lewis, Lynsay RN RN ll1 Corrections: (The following items were deleted from the chart) 04/27 01:12 01:12 04/27/2020 01:12 Discharged to Home. Impression: Nausea with vomiting, rn unspecified. Condition is Stable. Forms are Medication Reconciliation Form, Thank You Letter, Antibiotic Education, Prescription Opioid Use. Follow up: Private Physician; When: As needed; Reason: Recheck today's complaints, Re-evaluation by your physician. Problem is new. Symptoms have improved. rn 02:04 01:12 04/27/2020 01:12 Discharged to Home. Impression: Nausea with vomiting, ea unspecified; Dehydration. Condition is Stable. Forms are Medication Reconciliation Form, Thank You Letter, Antibiotic Education, Prescription Opioid Use. Follow up: Private Physician; When: As needed; Reason: Recheck today's complaints, Re-evaluation by your physician. Problem is new. Symptoms have improved. rn
[2020-04-27 02:09] VITALS: BP 140/108; TEMP 99.1; O2SAT 100
--- NOTE | 2020-04-27 10:12 | RAD REPORT ---
EXAM DESCRIPTION: CT - Abdomen Pelvis W Contrast - 04/27/2020 7:15 am CLINICAL HISTORY: ABD PAIN COMPARISON: 04/20/2020 TECHNIQUE: CT of the abdomen and pelvis performed following IV administration of iodinated contras t.. FINDINGS: Lung Bases: The visualized lung bases are clear. Bones: Minimal degenerative endplate spondylosis and facet arthropathy throughout the visualized spin e. Abdomen: Liver: The liver has normal size and density. No intrahepatic biliary dilatation. Gallbladder: Prior cholecystectomy. Spleen, Pancreas, and Adrenal Glands: The spleen, pancreas, and adrenal glands are unremarkable. Kidneys: No hydronephrosis or obstructing calculus. Vasculature: 3.2 cm infrarenal abdominal aortic aneurysm. IVC is unremarkable. Aortoiliac atheroscler osis. The portal vein is patent. The proximal visceral and renal arteries are patent. Stomach: The stomach and duodenum have normal course. Other: No free intraperitoneal air. No free fluid or lymphadenopathy. Scattered foci of air in th e anterior abdominal wall subcutaneous soft tissues may represent injection sites. Pelvis: Bladder: Urinary bladder is unremarkable. Bowel: No dilated loops of large or small bowel. Scattered diverticula of the colon. Fat stranding. Appendix: Not identified. Pelvis: Uterus is not enlarged. IMPRESSION: 1. No acute inflammatory or obstructive process identified. 2. Diverticulosis without evidence of acute diverticulitis. 3. 3.2 cm infrarenal abdominal aortic aneurysm. Follow-up in 3 years recommended. This exam was performed according to our departmental dose-optimization program, which includes autom ated exposure control, adjustment of the mA and/or kV according to patient size and/or use of iterati ve reconstruction technique. 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 The interpreting r adiologist is fully responsible for the content of the report.
== END 2020-04-27 02:04 | disposition home or self-care (01) ==
LOC: ER 21:16
DX: E86.0 Dehydration (principal); I10 Essential (primary) hypertension; Z88.0 Allergy status to penicillin
CPT/HCPCS: 85025; 80048; 36415; 80076; 83690; 74177; 96374; 99284; Q9967; J7030; J2405

== ENCOUNTER 2020-04-30 12:44 | Emergency (ER) | payer OTHER ==
--- OUTSIDE RECORDS SUMMARY | 2020-04-30 12:47 | XMS REPORT | Continuity of Care Document ---
:1950 Author Organization [facility] t Address [address] [place] [address] Care Team Providers Name Role Phone Ebshilpam PEOPLE MANAGER Attending Clinician Saray Workman Attending Clinician Unavailable [...] Not [facility] Reaction Available [facility] ent [facility] Social History Smoking Status Start Date Stop Date Source Never Smoker [facility] P ractice Medications Ordered Filled Start Stop Current Ordering Indication Dosage Frequency Signature Comments Components Source Medication Medication Date Date Medication? Clinician (SIG) Name Name Oseltamivir Oseltamivir Yes Arash not [facility] Phosphate Phosphate Griffith defined [facility] ent Clinics ASA ASA Yes Arash not [facility] defined [facility] ent [facility] Sucralfate Sucralfate Yes Arash not [facility] defined [facility] ent [facility] Cinacalcet Cinacalcet Yes Arash not [facility] HCl HCl Griffith defined [facility] ent [facility] aspirin 81 aspirin 81 No 1 Q1D aspirin 81 Village mg mg mg Family tablet,estefany tablet,estefany tablet,del Practic yed release yed release ayed e Take 1 Take 1 release tablet tablet Take 1 every day every day tablet by oral by oral every day route. route. by oral route. potassium potassium Yes Arash not [facility] Griffith defined [facility] ent [facility] azithromyci azithromyci No azithromyc Village n 250 mg n 250 mg in 250 mg Fa mai tablet tablet tablet Practic e Fish Oil Fish Oil Yes Arash not [facility] Griffith defined [facility] azithromyci azithromyci No azithromyc Village n 500 mg n 500 mg in 500 mg Fa mai tablet tablet tablet Practic e Omeprazole Omeprazole Yes Arash not [facility] Griffith defined [facility] ent [facility] Boostrix Boostrix No Boostrix Loida belkys Tdap 2.5 Lf Tdap 2.5 Lf Tdap 2.5 Family unit-8 unit-8 Lf unit-8 Practi c mcg-5 mcg-5 mcg-5 e Lf/0.5 mL Lf/0.5 mL Lf/0.5 mL intramuscul intramuscul intramuscu ar syringe ar syringe lar syringe Losartan Losartan Yes Arash not [facility] Potassium Potassium Griffith defined [facility]ree [facility] ent Clinics carvedilol carvedilol No carvedilol [facility] 6.25 mg 6.25 mg 6.25 mg Family tablet Take tablet Take tablet Practic 1 tablet 1 tablet Take 1 e twice a day twice a day tablet by oral by oral twice a route. route. day by oral route. Coreg Coreg Yes Arash not [facility] defined [facility] cinac[facility] No cinacalcet [facility] 30 mg 30 mg 30 mg Family tablet tablet tablet Practic e Estradiol Estradiol Yes Arash not [facility] 60 mg 60 mg 60 mg Family tablet Take tablet Take tablet Practic 1 tablet 1 tablet Take 1 e every day every day tablet by oral by oral every day route. route. by oral route. Clotrimazol Clotrimazol Yes Arash not [facility] e e Griffith defined [facility] ciprofloxac ciprofloxac No ciprofloxa [facility] in 500 mg in 500 mg morro 500 mg Family tablet tablet tablet Practic e cyclobenzap cyclobenzap No cyclobenza [facility] rine 5 mg rine 5 mg bridget 5 mg Family tablet tablet tablet Practic e Simvastatin Simvastatin Yes Arash not [facility] defined [facility] estradiol estradiol No estradiol [facility] 0.01% (0.1 0.01% (0.1 0.01% (0.1 Family mg/gram) mg/gram) mg/gram) Pra ctic vaginal vaginal vaginal e cream cream cream levofloxaci levofloxaci No levofloxac [facility] n 500 mg n 500 mg in 500 mg Fa mai tablet tablet tablet Practic e losartan 25 losartan 25 No losartan [facility] mg tablet mg tablet 25 mg Fami ly Take 1 Take 1 tablet Practic tablet tablet Take 1 e every day every day tablet by oral by oral every day route. route. by oral route. losartan 50 losartan 50 No losartan [facility] mg-hydrochl mg-hydrochl 50 F amily orothiazide orothiazide mg-hydroch Practic 12.5 mg 12.5 mg lorothiazi e tablet tablet de 12.5 mg tablet metronidazo metronidazo No metronidaz [facility] le 500 mg le 500 mg ole [...] suspension suspension suspension omeprazole omeprazole No omeprazole [facility] 40 mg 40 mg 40 mg Family capsule,del capsule,del capsule,de Practic ayed ayed layed e release release release Take 1 Take 1 Take 1 capsule capsule capsule every day every day every day by oral by oral by oral route. route. route. ondansetron ondansetron No ondansetro [facility] 8 mg 8 mg n 8 mg Family disintegrat disintegrat disintegra Practic ing tablet ing tablet ting e tablet ondansetron ondansetron No ondansetro [facility] HCl 4 mg HCl 4 mg n HCl 4 mg F amily tablet tablet tablet Practic e pantoprazol pantoprazol No pantoprazo [facility] e 40 mg e 40 mg le 40 mg Famil y tablet,estefany tablet,estefany tablet,del Practic yed release yed release ayed e release simvastatin simvastatin No [address] [facility] 40 mg 40 mg n 40 mg Family tablet Take tablet Take tablet Practic 1 tablet 1 tablet Take 1 e every day every day tablet by oral by oral every day route. route. by oral route. sucralfate sucralfate No sucralfate [facility] 1 gram 1 gram 1 gram Family [...] Source Name Name influenza, influenza, 2018-12-[address] [facility] injectable, injectable, 00:00:00 Practice quadrivalent quadrivalent influenza, influenza, 2017-12-[address] [facility] injectable, injectable, 00:00:00 Practice quadrivalent quadrivalent Vital Signs Vital Name Observation Time Observation Value Comments Source Height 2019-11-19 00:00:00 67 [in_i] [facility] Practice Height 2019 00:00:00 67 [in_i] [facility] Height 2019-07-12 00:00:00 67 [in_i] [facility] BMI (Body Mass 2019-07-12 00:00:00 28.7 kg/m2 [facility] Family Index) Practice Body Weight 2019-07-12 00:00:00 183 [lb_av] [facility] Practice Procedures Procedure Date / Time Performed Performing Clinician Sourteto e Appendectomy [facility] P ractice Cholecystectomy [facility] P ractice Plan of Care Planned Activity Planned Date Details Comments Source Future Appointment 2020-05-20 00:00:00 Zaina [facility], [address]; [address] [address], [place] [address] Encounters Start End Encounter Admission Attending Care Care Encounter Source Date/Time Date/Time Type Type Clinicians Facility Department ID 2019-11-19 2019-11-19 Zaina VFP [place] - [id number] V illage 00:00:00 00:00:00 RosalindaAmrita [facility] Fam haley o, FINANCIAL AIDS OFFICER: Medical - Practi c [email or web address] [email or web address], [address] [address], [place] [address] , Ph. 2019-09-28 2019-09-28 Telephone Yoana [facility] [id number] 00:00:00 00:00:00 [facility] [id number] [place] [id number] Professio [phone] nal [address] 2019-09-27 2019-09-27 Telephone PACHECO Workman [id number] 00:00:00 00:00:00 Luann IRWIN [id number] [facility] [id number] 2019-09-25 2019-09-25 Laboratory Lab, [facility] [id number] 14:12:55 14:32:55 Only Fam P[facility] Health [id number] [place] [id number] Professio [phone] nal [address] 2019-09-25 2019-09-25 Letter Doctor [facility]HE[facility] [id number] 00:00:00 00:00:00 (Out) Unassigned, ALIDA [id number] [facility] [id number] 2019-09-25 2019-09-25 Letter Doctor PACHECO [id number] 00:00:00 00:00:00 (Out) Unassigned, ALIDA [id number] [place] [facility] [id number] 2019 2019 Zaina VFP [place] - [id number] V illage 00:00:00 00:00:00 [facility] haley tsang, FINANCIAL AIDS OFFICER: Medical - Practi c [email or web address] [address], [place] [address] , Ph. 2019-07-12 2019-07-12 [facility] [place] - [id number] V illage 00:00:00 00:00:00 [facility] haley tsang, FINANCIAL AIDS OFFICER: Medical - Practi c [email or web address], [address] [address], [place] [address] , Ph. 2019-05-20 2019-05-20 Outpatient Jessica Rosa [id number] [facility] 09:15[facility]00 09:15[facility]00 [facility] ent Clinics 2019-05-13 2019-05-13 Outpatient [facility] Jessicat [id number] 09:00:00 09:00:00 [facility] ent Clinics 2019-04-15 2019-04-15 Outpatient Brazsusan Lopezt [id number] 15:59:00 15:59:00 [facility] ent Clinics 2019-04-15 2019-04-15 Outpatient Jessica Rosa [id number] [facility] 08:45:00 08:45:00 t [facility] ent Clinics Results This patient has no known results.
[2020-04-30 14:05] LABS: Absolute Lymphocytes (CBC) 2.1 K/uL (0.7-4.9); Basophils % 0.7 % (0-1.3); Hematocrit 38.9 % (36.0-45.0); Lymphocytes % 16.8 % (15.3-44.8); MPV 8.4 fL (7.6-11.3); RBC Red Blood Cell Count 4.38 M/uL (3.86-4.86)
[2020-04-30 14:06] LABS: Protime INR 1.14
[2020-04-30 14:33] LABS: ALT/SGPT 27 U/L (12-78); AST/SGOT 16 U/L (15-37); Albumin 3.4 g/dL (3.4-5.0); Alkaline Phosphatase 100 U/L (45-117); BUN Blood Urea Nitrogen 9 mg/dL (7-18); Bicarbonate 27 mmol/L (21-32); Bilirubin Direct 0.1 mg/dL (0-0.2); Bilirubin Total 0.5 mg/dL (0.2-1.0); Glucose Level 88 mg/dL (74-106); Magnesium 1.9 mg/dL (1.8-2.4); NT PRO-BNP 172 pg/mL (<125); Protein, Total 7.2 g/dL (6.4-8.2); Sodium Level 139 mmol/L (136-145); Troponin (Emerg Dept Use Only) < 0.02 ng/mL (0.0-0.045)
[2020-04-30 14:35] LABS: Potassium 2.8 mmol/L (3.5-5.1)
[2020-04-30] MEDS ORDERED: DIAZEPAM 10 MG/2 ML INJ SYRINGE ONE (14:57)
--- NOTE | 2020-04-30 15:08 | RAD REPORT ---
EXAM DESCRIPTION: RAD - Chest Single View - 04/30/2020 2:14 pm CLINICAL HISTORY: CHEST PAIN COMPARISON: Portable April 20 TECHNIQUE: AP portable chest image was obtained 04/30/2020 2:14 pm . FINDINGS: Lungs are clear. Heart and vasculature are normal. No measurable pleural effusion and no p neumothorax. No acute bony abnormality seen. No acute aortic findings suspected. IMPRESSION: No acute cardiopulmonary process. No significant change from comparison study.
--- NOTE | 2020-04-30 15:16 | RAD REPORT ---
EXAM DESCRIPTION: CT - Head Brain Wo Cont - 04/30/2020 3:02 pm CLINICAL HISTORY: DIZZINESS COMPARISON: No comparisons TECHNIQUE: Axial 5 mm thick images of the head were obtained without IV contrast. All CT scans are performed using dose optimization technique as appropriate and may include automated exposure control or mA/KV adjustment according to patient size. FINDINGS: No intracranial hemorrhage, mass, edema or shift of mid-line structures. No acute infarcti on changes seen. No abnormal extra-axial fluid collections. Atrophy and chronic ischemic changes are minimal. Ventricles are normal in size. Arterial tree calcifications present. Mastoid air cells and visualized portions of the paranasal sinuses are clear. No acute bony findings. IMPRESSION: Negative non-contrast CT head examination.
--- NOTE | 2020-04-30 16:15 | ER ---
Nurse's Notes [facility] Name: Hannah Wick Age: 69 yrs Sex: Female : 1950 Arrival Date: 04/30/2020 Time: 12:46 Bed 7 Private MD: Diagnosis: Chest pain, unspecified;Dizziness and giddiness Presentation: 04/30 12:58 Chief complaint: Patient states: Chest pain started at 1030 this morning. Pain ca1 radiating to L shoulder and L arm. Reports dizziness and nausea with the chest pain. Denies HX of heart conditions. Coronavirus screen: Client denies travel out of the [place] in the last 14 days. At this time, the client does not indicate any symptoms associated with coronavirus-19. Ebola Screen: Patient negative for fever greater than or equal to 101.5 degrees Fahrenheit, and additional compatible Ebola Virus Disease symptoms Patient denies exposure to infectious person. Patient denies travel to an Ebola-affected area in the 21 days before illness onset. No symptoms or risks identified at this time. Initial Sepsis Screen: Does the patient meet any 2 criteria? No. Patient's initial sepsis screen is negative. Does the patient have a suspected source of infection? No. Patient's initial sepsis screen is negative. Risk Assessment: Do you want to hurt yourself or someone else? Patient reports no desire to harm self or others. Onset of symptoms was April 30, 2020 at 10:30. 12:58 Method Of Arrival: Wheelchair ca1 12:58 Acuity: MARIPOSA 3 ca1 Historical: - Allergies: 13:00 PENICILLINS; ca1 18:10 sertraline; iw - Home Meds: 13:00 losartan-hydrochlorothiazide 50-12.5 mg Oral tab 1 tab once daily [Active]; omeprazole ca1 40 mg Oral cpDR 1 cap once daily [Active]; Pylera 140-125-125 mg Oral cap 3 caps 4 times per day [Active]; simvastatin 40 mg Oral tab 1 tab once daily [Active]; - PMHx: 13:00 Hyperlipidemia; Hypertension; ca1 - PSHx: 13:00 Cholecystectomy; abdominal sx; ca1 - Immunization history:: Pneumococcal vaccine is up to date, Flu vaccine is up to date. - Social history:: Smoking status: Patient denies any tobacco usage or history of. Screenin:00 Abuse screen: Denies threats or abuse. Denies injuries from another. Nutritional bp screening: No deficits noted. Tuberculosis screening: No symptoms or risk factors identified. Fall Risk None identified. Assessment: 13:00 Reassessment: SEE TRIAGE NOTE. bp 14:30 Reassessment: Patient appears in no apparent distress at this time. No changes from bp previously documented assessment. Patient and/or family updated on plan of care and expected duration. Pain level reassessed. Cardiovascular: Rhythm is sinus rhythm. 15:38 Reassessment: Patient appears in no apparent distress at this time. No changes from bp previously documented assessment. Patient and/or family updated on plan of care and expected duration. Pain level reassessed. PT RETURNED FROM CT. DISPO PENDING. 16:30 Reassessment: Patient appears in no apparent distress at this time. No changes from bp previously documented assessment. Patient and/or family updated on plan of care and expected duration. Pain level reassessed. ADMIT INITIATED. 19:20 General: Appears in no apparent distress. comfortable, Behavior is calm, cooperative, rr5 appropriate for age, as per hospitalist patient is for discharge. spoke and explained to patient and family member the plan of care. Pain: Complains of pain in chest Pain Quality of pain is described as aching, Pain began gradually. Neuro: Level of Consciousness is awake, alert, obeys commands, Oriented to person, place, time. Respiratory: Airway is patent Respiratory effort is even, unlabored, Respiratory pattern is regular, symmetrical. GI: No signs and/or symptoms were reported involving the gastrointestinal system. : No signs and/or symptoms were reported regarding the genitourinary system. EENT: No signs and/or symptoms were reported regarding the EENT system. Derm: Skin is intact, is healthy with good turgor, Skin temperature is warm. Musculoskeletal: Capillary refill < 3 seconds. 20:06 Reassessment: Patient appears in no apparent distress at this time. Patient is alert, rr5 oriented x 3, equal unlabored respirations, skin warm/dry/pink. discharge instruction given and explained without complaints made. Vital Signs: 12:58 BP 147 / 93; Pulse 103; Resp 18 S; Temp 98(TE); Pulse Ox 99% on R/A; Weight 70.31 kg ca1 (R); Height 5 ft. 4 in. (162.56 cm) (R); Pain 0/10; 14:30 BP 123 / 96; Pulse 92; Resp 16; Pulse Ox 98% ; bp 15:30 BP 117 / 77; Pulse 91; Resp 16; Pulse Ox 99% ; bp 16:30 BP 133 / 94; Pulse 80; Resp 24; Pulse Ox 97% ; bp 17:30 BP 141 / 96; Pulse 84; Resp 18; Pulse Ox 97% ; rb3 18:30 BP 142 / 98; Pulse 75; Resp 16; Pulse Ox 96% ; rb3 19:30 BP 141 / 80; Pulse 70; Resp 19; Pulse Ox 99% ; rr5 12:58 Body Mass Index 26.61 (70.31 kg, 162.56 cm) ca1 ED Course: 12:46 Patient arrived in ED. ag5 12:58 Arm band placed on right wrist. EKG completed in triage. Results shown to MD. ca1 13:00 Triage completed. ca1 13:00 Patient has correct armband on for positive identification. Bed in low position. Call bp light in reach. Side rails up X2. language arts teacher on. Pulse ox on. NIBP on. 13:23 Tobi Tarango PA is PHCP. jmm 13:23 Wenceslao Liang MD is Attending Physician. jmm 13:42 Avelino Pham, VINNIE is Primary Nurse. bp 13:50 Inserted saline lock: 20 gauge in right forearm, using aseptic technique. Blood bp collected. 13:51 XRAY Chest (1 view) Sent. bp 14:14 XRAY Chest (1 view) In Process Unspecified. EDMS 15:02 CT Head Brain wo Cont In Process Unspecified. EDMS 16:13 Garrett Crandall DO is Hospitalizing Provider. jmm 20:06 No provider procedures requiring assistance completed. IV discontinued, intact, rr5 bleeding controlled, No redness/swelling at site. Pressure dressing applied. Patient maintains SpO2 saturation greater than 95% on room air. Administered Medications: 14:45 Drug: Valium 2 mg Route: IVP; Site: right forearm; bp 15:39 Follow up: Response: Anxiety decreased bp 16:20 Drug: Aspirin Chewable Tablet 324 mg Route: PO; bp 17:11 Follow up: Response: No adverse reaction bp 18:05 Drug: Potassium Chloride 40 mEq Route: PO; bp 18:33 Follow up: Response: No adverse reaction bp 18:30 Drug: NS 0.9% 500 ml Route: IV; Rate: bolus; Site: right forearm; bp 19:20 Follow up: IV Status: Completed infusion; IV Intake: 500ml rr5 Intake: 19:20 IV: 500ml; Total: 500ml. rr5 Outcome: 16:14 Decision to Hospitalize by Provider. [facility] 19:47 Discharge ordered by MD. [facility] 20:06 Discharged to home via wheelchair. rr5 20:06 Condition: stable 20:06 Discharge instructions given to patient, Instructed on discharge instructions, follow up and referral plans. Demonstrated understanding of instructions, follow-up care. 20:09 Patient left the ED. rr5 Signatures: Dispatcher [employer] EDMS Tobi Tarango PA PA jmm Williams, Irene, RN VINNIE iw Avelino Pham RN RN Marcos Charlton RN RN rr5 Shiloh Borja RN RN ca1 Bret London ag5 Alida Kauffman, RN RN rb3 Corrections: (The following items were deleted from the chart) 13:01 12:58 BP 147 / 93; Pulse 10bpm; Resp 18bpm; Spontaneous; Pulse Ox 99% RA; Temp 98F ca1 Temporal; 70.31 kg Reported; Height 5 ft. 4 in. Reported; BMI: 26.6; Pain 0/10; ca1
--- NOTE | 2020-04-30 16:15 | EDPHYS ---
Physician Documentation [facility] Name: Hannah Wick Age: 69 yrs Sex: Female : 1950 Arrival Date: 04/30/2020 Time: 12:46 Bed 7 Private MD: ED Physician Wenceslao Liang HPI: 04/30 13:01 This 69 yrs old Female presents to ER via Wheelchair with complaints of Chest jmm Pain, Dizziness, Nausea. 13:01 The patient or guardian reports chest pain that is located primarily in the substernal [facility] area. Onset: gradually, today, at 22:30. The pain does not radiate. Associated signs and symptoms: Pertinent positives: dizziness, Pertinent negatives: cough, shortness of breath. The chest pain is described as sub sternal. Duration: The patient or guardian reports a single episode, that is still ongoing, but improving. This is a 69 year old female with a history of hlp, htn that presents to the ED with complaints of left sided chest pain which began at approx 1030 am. Patient states she then developed dizziness described as the room spinning with difficulty with balance. . Historical: - Allergies: 13:00 PENICILLINS; ca1 18:10 sertraline; iw - Home Meds: 13:00 losartan-hydrochlorothiazide 50-12.5 mg Oral tab 1 tab once daily [Active]; omeprazole ca1 40 mg Oral cpDR 1 cap once daily [Active]; Pylera 140-125-125 mg Oral cap 3 caps 4 times per day [Active]; simvastatin 40 mg Oral tab 1 tab once daily [Active]; - PMHx: 13:00 Hyperlipidemia; Hypertension; ca1 - PSHx: 13:00 Cholecystectomy; abdominal sx; ca1 - Immunization history:: Pneumococcal vaccine is up to date, Flu vaccine is up to date. - Social history:: Smoking status: Patient denies any tobacco usage or history of. ROS: 13:01 Constitutional: Negative for fever, chills, and weight loss. jmm 13:01 Cardiovascular: Positive for chest pain. 13:01 Neuro: Positive for dizziness. 13:01 All other systems are negative. Exam: 13:01 Constitutional: This is a well developed, well nourished patient who is awake, alert, jmm and in no acute distress. Head/Face: atraumatic. Eyes: EOMI, no conjunctival erythema appreciated ENT: Moist Mucus Membranes Neck: Trachea midline, Supple Chest/axilla: Normal chest wall appearance and motion. Cardiovascular: Regular rate and rhythm. No edema appreciated Respiratory: Normal respirations, no respiratory distress appreciated Abdomen/GI: Non distended, soft Back: Normal ROM Skin: General appearance color normal MS/ Extremity: Moves all extremities, no obvious deformities appreciated, no edema noted to the lower extremities Neuro: Awake and alert, normal gait Psych: Behavior is normal, Mood is normal, Patient is cooperative and pleasant Vital Signs: 12:58 BP 147 / 93; Pulse 103; Resp 18 S; Temp 98(TE); Pulse Ox 99% on R/A; Weight 70.31 kg ca1 (R); Height 5 ft. 4 in. (162.56 cm) (R); Pain 0/10; 14:30 BP 123 / 96; Pulse 92; Resp 16; Pulse Ox 98% ; bp 15:30 BP 117 / 77; Pulse 91; Resp 16; Pulse Ox 99% ; bp 16:30 BP 133 / 94; Pulse 80; Resp 24; Pulse Ox 97% ; bp 17:30 BP 141 / 96; Pulse 84; Resp 18; Pulse Ox 97% ; rb3 18:30 BP 142 / 98; Pulse 75; Resp 16; Pulse Ox 96% ; rb3 19:30 BP 141 / 80; Pulse 70; Resp 19; Pulse Ox 99% ; rr5 12:58 Body Mass Index 26.61 (70.31 kg, 162.56 cm) ca1 MDM: 14:01 Patient medically screened. [facility] 16:10 The patient was given aspirin in the Emergency Department. Data reviewed: vital signs, [facility] nurses notes, EKG, radiologic studies. Counseling: I had a detailed discussion with the patient and/or guardian regarding: the historical points, exam findings, and any diagnostic results supporting the discharge/admit diagnosis, lab results, radiology results, the need for further work-up and treatment in the hospital. ED course: I discussed the patient with Dr. Craig whom accepted the patient for admission. . 19:46 ED course: Dr craig and Ricardo torres evaluated the patient. Believe they are safe for [facility] dispo. Family agree with the plan of care. . 04/30 13:25 Order name: Basic Metabolic Panel; Complete Time: 14:36 [facility] 04/30 13:25 Order name: CBC with Diff; Complete Time: 14:30 [facility] 04/30 13:25 Order name: LFT's; Complete Time: 14:36 [facility] 04/30 13:25 Order name: Magnesium; Complete Time: 14:36 [facility] 04/30 13:25 Order name: NT PRO-BNP; Complete Time: 14:36 [facility] 04/30 13:25 Order name: PT-INR; Complete Time: 14:30 [facility] 04/30 13:25 Order name: Troponin (emerg Dept Use Only); Complete Time: 14:36 [facility] 04/30 13:25 Order name: XRAY Chest (1 view); Complete Time: 15:10 [facility] 04/30 14:25 Order name: CT Head Brain wo Cont; Complete Time: 15:20 [facility] 04/30 16:58 Order name: Troponin (emerg Dept Use Only); Complete Time: 18:09 [facility] 04/30 13:01 Order name: EKG; Complete Time: 13:02 [facility] 04/30 13:01 Order name: EKG - Nurse/Tech; Complete Time: 13:01 [facility] 04/30 13:25 Order name: Cardiac monitoring; Complete Time: 13:50 [facility] 04/30 13:25 Order name: IV Saline Lock; Complete Time: 13:50 [facility] 04/30 13:25 Order name: Labs collected and sent; Complete Time: 13:51 [facility] 04/30 13:25 Order name: O2 Per Protocol; Complete Time: 13:51 [facility] 04/30 13:25 Order name: O2 Sat Monitoring; Complete Time: 13:51 [facility] Administered Medications: 14:45 Drug: Valium 2 mg Route: IVP; Site: right forearm; bp 15:39 Follow up: Response: Anxiety decreased bp 16:20 Drug: Aspirin Chewable Tablet 324 mg Route: PO; bp 17:11 Follow up: Response: No adverse reaction bp 18:05 Drug: Potassium Chloride 40 mEq Route: PO; bp 18:33 Follow up: Response: No adverse reaction bp 18:30 Drug: NS 0.9% 500 ml Route: IV; Rate: bolus; Site: right forearm; bp 19:20 Follow up: IV Status: Completed infusion; IV Intake: 500ml rr5 Disposition: 05/01 08:20 Co-signature as Attending Physician, Wenceslao Liang MD. rn Disposition: 04/30/20 19:47 Discharged to Home. Impression: Chest pain, unspecified, Dizziness and giddiness. - Condition is Stable. - Discharge Instructions: Nonspecific Chest Pain, Dizziness. - Medication Reconciliation Form, Thank You Letter, Antibiotic Education, Prescription Opioid Use form. - Follow up: Private Physician; When: 2 - 3 days; Reason: Recheck today's complaints, Continuance of care, Re-evaluation by your physician. Signatures: Dispatcher [employer] EDMS Tobi Tarango PA PA Nanda Anders, RN RN Wenceslao Reyes MD MD rn Avelino Pham, RN RN bp Marcos Hernandez RN RN rr5 AcShiloh hickman RN RN ca1 Corrections: (The following items were deleted from the chart) 04/30 16:58 16:14 Hospitalization Ordered by Garrett Craig DO for Observation. Preliminary [facility] diagnosis is Chest pain, unspecified; Dizziness and giddiness. Bed requested for Telemetry/MedSurg (observation). Status is Observation. Condition is Stable. Problem is new. Symptoms have improved. [facility] 20:09 19:47 04/30/2020 19:47 Discharged to Home. Impression: Chest pain, unspecified; rr5 Dizziness and giddiness. Condition is Stable. Forms are Medication Reconciliation Form, Thank You Letter, Antibiotic Education, Prescription Opioid Use. Follow up: Private Physician; When: 2 - 3 days; Reason: Recheck today's complaints, Continuance of care, Re-evaluation by your physician. [facility]
--- NOTE | 2020-04-30 16:54 | P.CNS ---
Date of Consult: 04/30/20 Reason for Consult: Evaluation for possible admission Requesting Physician: Wenceslao Liang Primary Care Provider: Dr. Espinoza Chief Complaint: Dizziness, chest pain History of Present Illness: 69-year-old female with history of hyperlipidemia, hypertension. Patient was recently hospitalized for diverticulitis and cellulitis. Patient reports dizziness this morning. She also reported some chest pain. The chest pain occurred after she was exercising her upper extremities. The pain lasted for couple of seconds. She reported some dizziness. No significant nausea, vomiting or shortness of breath. She came to the ER for further evaluation. In the ER patient was evaluated. CT head unremarkable. Chest x-ray unremarkable. White count 12.7, hemoglobin 13. Troponin unremarkable. BNP 172. Sodium 139, potassium 2.8. BUN of 9, creatinine 0.87 with a GFR 64. Glucose 88. EKG showed no significant EKG changes. I was consulted to evaluate for possible admission. When I saw the patient ER, she was without any chest pain. Patient felt improved with medication given in the emergency room. Patient was not in any significant distress. Allergies Penicillins Allergy (Severe, Verified 04/22/20 11:51) Hives PENICILLINS Allergy (Severe, Uncoded 04/22/20 11:51) Hives Home medications list reviewed: Yes Home Medications: Cinacalcet HCl 60 mg PO DAILY 04/21/20 Loratadine [Claritin*] 10 mg PO DAILY 04/21/20 Losartan Potassium [Cozaar] 25 mg PO DAILY 04/21/20 Omeprazole [Prilosec] 40 mg PO DAILY 04/21/20 Sertraline HCl 50 mg PO DAILY 04/21/20 Simvastatin 40 mg PO BEDTIME 04/21/20 - Past Medical/Surgical History Diabetic: Yes -: Hypertension -: Hyperlipidemia -: Arthritis -: HTN -: tonsilectomy -: 05/02 rt sling rectocele repair, cystoscopy -: Cholecystectomy Psychosocial/ Personal History: Patient is single - Family History Mother Medical History: Hypertension, Cancer Notes: father, mother sister and a brother all had cancer - Social History Smoking Status: Never smoker Alcohol use: No CD- Drugs: No Caffeine use: No Place of Residence: Home Review of Systems General: As per HPI Eyes: Unremarkable ENT: Unremarkable Respiratory: Unremarkable Cardiovascular: Chest Pain, Light Headedness, As per HPI Gastrointestinal: Unremarkable Genitourinary: Unremarkable Musculoskeletal: Unremarkable Integumentary: Unremarkable Neurological: As per HPI Lymphatics: Unremarkable Physical Examination General: Alert, In no apparent distress, Oriented x3, Cooperative HEENT: Atraumatic, PERRLA, Mucous membr. moist/pink Neck: Supple Respiratory: Clear to auscultation bilaterally, Normal air movement, Other (Patient had reproducible pain with palpation to the chest) Cardiovascular: Normal pulses, Regular rate/rhythm Gastrointestinal: Normal bowel sounds, No ascites, No tenderness, No masses, No rebound, No guarding Musculoskeletal: Other (Some soreness to the left shoulder with full extension and rotation. Some pain to the chest wall area as well.) Integumentary: No tenderness/swelling, No erythema, No warmth, No cyanosis, Other (Area of the right lower extremity looks unremarkable. She apparently was recently hospitalized for right lower extremity cellulitis. Skin appears dry.) Neurological: Normal speech, Normal strength at 5/5 x4 extr, Normal tone, Normal affect Laboratory Data (last 24 hrs) 04/30/20 13:50: PT 13.1 H, INR 1.14 04/30/20 13:50: WBC 12.70 H, Hgb 13.0, Hct 38.9, Plt Count 333 04/30/20 13:50: Sodium 139, Potassium 2.8 L*, BUN 9, Creatinine 0.87, Glucose 88, Magnesium 1.9, Total Bilirubin 0.5, AST 16, ALT 27, Alkaline Phosphatase 100 Conclusions/Impression: Impression: Chest pain likely musculoskeletal with history of osteoarthritis Dizziness suspect mild dehydration Hypertension Hyperlipidemia Recent hospitalization for cellulitis to the right lower extremity and diverticulitis Hypokalemia Plan: Chest pain likely musculoskeletal with history of osteoarthritis: Pain is reproducible. Cardiac enzymes unremarkable. Suspect no need for admission. Case discussed in detail with ER physician. Will recheck troponin. If unremarkable patient will be discharged home. Patient will continue with exercises at home. Patient may take Tylenol as needed for pain. Recommend stretching exercises. Fall precautions in place. Dizziness suspect mild dehydration: Encourage oral intake. Patient appeared dry. Recommend to recheck lab-BMP in 1 week. Hypertension: Continue with home medication Hyperlipidemia: Continue with home medication Recent hospitalization for cellulitis to the right lower extremity and diverticulitis: This appears almost resolved. Patient to finish her course of antibiotic therapy. Hypokalemia: Recommend to increase potassium intake. Recommend to recheck lab- BMP in 1 week. Time Spent Managing Pts care (In Minutes): 55
[2020-04-30] MEDS ORDERED: ASPIRIN 81 MG CHEWABLE TABLET ONE (17:21)
[2020-04-30] MEDS ORDERED: POTASSIUM CL SA 10 MEQ TAB PO ONE (18:35)
[2020-04-30] MEDS ORDERED: NA CHLORIDE 0.9% 500 ML ONE (18:35)
[2020-04-30 20:27] VITALS: TEMP 98
[2020-04-30 20:50] VITALS: BP 141/80; O2SAT 99
== END 2020-04-30 20:09 | disposition home or self-care (01) ==
LOC: ER 12:44
DX: R07.9 Chest pain, unspecified (principal); R42 Dizziness and giddiness; I10 Essential (primary) hypertension; E78.5 Hyperlipidemia, unspecified; E87.6 Hypokalemia; Z88.0 Allergy status to penicillin; Z88.8 Allergy status to other drugs, medicaments and biological substances; Z82.49 Family history of ischemic heart disease and other diseases of the circulatory system
CPT/HCPCS: 96361; 85025; 80048; 36415; 83735; 85610; 80076; 84484 ×2; 83880; 70450; 71045; 96374; 99285; J3360; J7040

== ENCOUNTER 2021-06-18 19:36 | Emergency (ER) | payer MEDICARE ==
--- OUTSIDE RECORDS SUMMARY | 2021-06-18 19:41 | XMS REPORT | Continuity of Care Document ---
:1950 Author Organization [facility] t Address [address] [place] [address] Care Team Providers Name Role Phone Roxy Aguirre Attending Clinician Unavailable IHDE_G Attending Clinician Unavailable Rosalinda-Mbayo_A_AH Attending Clinician Unavailable Yoana FINE ARTS MODEL Attending Clinician Saray Workman Attending Clinician Unavailable Lab, Fam Pob I Attending Clinician Unavailable Joel FINE ARTS MODEL Attending Clinician Doctor Unassigned, Name Attending Clinician Unavailable Arleen Admitting Clinician Unavailable IHDE_G Admitting Clinician Unavailable Rosalinda-Mbayo_A_AH Admitting Clinician Unavailable Payers Payer Name Policy Type Policy Number Effective Date Expiration Date S poppy COUNTS INCLUDE 234 BEDS AT THE [facility] [id number] 2020 (MEDICARE 00:00:00 REPLACEMENT HMO) [employer] - GOLD PLUS [id number] (MEDICARE REPLACEMENT HMO) [place] [place] - [id number] 2019 [place] (MEDICARE 00:00:00 REPLACEMENT/ADVANT[place] GE - HMO) [place] [facility] [id number] 2014 00:00:00 Problems Condition Condition Condition Status Onset Resolution Last Treating Co mments Source Name Details Category Date Date Treatment Clinician Date Moderate Moderate Problem Active Lucas ge protein-ca Protein-ca 3-23 Aníbal toure 00:00: Practic malnutriti Malnutriti 00 e on (weight on (Weight for age for Age 60-74% of 60-74% of standard) Standard) Senile Senile Problem Active 2019-03 [place] purpura Purpura 2-21 Family 00:00: Practic 00 e Hyperlipid Hyperlipid Problem Active V illage emia emia 7-11 Family 00:00: Practic 00 e Essential Essential Problem Active Loida belkys hypertensi Hypertensi 711 Fa mai on on 00:00: Practic 00 e Gastroesop Gastroesop Problem Active V illage hageal hageal 711 Family reflux Reflux 00:00: Practic disease Disease 00 e Allergies, Adverse Reactions, Alerts Allergy Allergy Status Severity Reaction(s) Onset Inactive Treating Comm ents Source Name Type Date Date Clinician Penicill Propensi Active Hives Univer s in ty to 08-13 ity of adverse 00:00: [place] reaction 00 Medical s Branch PENICILL DRUG Active Hives Univers IN INGREDI 08-13 ity of 00:00: [place] 00 Medical Branch PENICILL Allergy Active Mild to Hives Vill[place] e INS to moderate Family substanc Practic e e Peniclli Adverse Active Info Not [facility] Reaction Available [facility] Social History Social Habit Start Date Stop Date Quantity Comments Source Exposure to SARS-CoV-[address] [place] [place] [facility] Medical Branch Sex [facility] [place] [place] Medical Bennett Smoking Status Start Date Stop Date Source Never smoker [facility] Medical Branch Medications Ordered Filled Start Stop Current Ordering Indication Dosage Frequency Signature Comments Components Source Medication Medication Date Date Medication? Clinician (SIG) Name Name docusate Yes 100mg Take 100 Univ ers (STOOL 6-06 mg by ity of SOFTENER) 19:05: mouth [place] 100 mg 27 daily. Medical capsule Branch furosemide Yes 20mg Take 20 mg U nivers 20 mg 6-06 by mouth ity of tablet 19:05: daily. [place] [address] Medical Branch aspirin 81 Yes 81mg Take 81 mg U nivers mg chewable 6-06 by mouth ity of tablet 19:05: daily. [place] [address] Medical Branch ALBUTEROL Yes Inhale. Unive rs SULFATE 606 ity of (VENTOLIN 19:05: [place] HFA INHALE) Medical Branch POLYETHYLEN Yes Take by Un candie E GLYCOL 6-06 mouth. ity of 3350 19:05: [place] (MIRALAX 27 Medical ORAL) Branch PSYLLIUM Yes Take by Unive rs HUSK 6-06 mouth. ity of (METAMUCIL 19:05: [place] ORAL) 27 Medical Branch docusate Yes 100mg Take 100 Univ ers (STOOL 6-06 mg by ity of SOFTENER) 19:05: mouth [place] 100 mg 27 daily. Medical capsule Branch furosemide Yes 20mg Take 20 mg U nivers 20 mg 6-06 by mouth ity of tablet 19:05: daily. [place] [address] Medical Branch aspirin 81 Yes 81mg Take 81 mg U nivers mg chewable 6-06 by mouth ity of tablet 19:05: daily. [place] [address] Medical Branch ALBUTEROL Yes Inhale. Unive rs SULFATE 6-06 ity of (VENTOLIN 19:05: [place] HFA INHALE) Medical Branch POLYETHYLEN Yes Take by Un candie E GLYCOL 6-06 mouth. ity of 3350 19:05: [place] (MIRALAX 27 Medical ORAL) Branch PSYLLIUM Yes Take by Unive rs HUSK 6-06 mouth. ity of (METAMUCIL 19:05: [place] ORAL) Medical Branch docusate Yes 100mg Take 100 Univ ers (STOOL 6-06 mg by ity of SOFTENER) 19:05: mouth [place] 100 mg 27 daily. Medical capsule Branch furosemide Yes 20mg Take 20 mg U nivers 20 mg 6-06 by mouth ity of tablet 19:05: daily. [place] [address] Medical Branch aspirin 81 Yes 81mg Take 81 mg U nivers mg chewable 6-06 by mouth ity of tablet 19:05: daily. [place] [address] Medical Branch ALBUTEROL Yes Inhale. Unive rs SULFATE 6-06 ity of (VENTOLIN 19:05: [place] HFA INHALE) Medical Branch POLYETHYLEN Yes Take by Un candie E GLYCOL 6-06 mouth. ity of 3350 19:05: [place] (MIRALAX 27 Medical ORAL) Branch PSYLLIUM Yes Take by Unive rs HUSK 6-06 mouth. ity of (METAMUCIL 19:05: [place] ORAL) Medical Branch docusate Yes 100mg Take 100 Univ ers (STOOL 6-06 mg by ity of SOFTENER) 19:05: mouth [place] 100 mg 27 daily. Medical capsule Branch furosemide Yes 20mg Take 20 mg U nivers 20 mg 6-06 by mouth ity of tablet 19:05: daily. [address] Branch aspirin 81 Yes 81mg Take 81 mg U nivers mg chewable 6-06 by mouth ity of tablet 19:05: daily. [place] [address] Medical Branch ALBUTEROL Yes Inhale. Unive rs SULFATE 6-06 ity of (VENTOLIN 19:05: [place] HFA INHALE) Medical Branch POLYETHYLEN Yes Take by Un candie E GLYCOL 6-06 mouth. ity of 3350 19:05: [place] (MIRALAX 27 Medical ORAL) Branch PSYLLIUM Yes Take by Unive rs HUSK 6-06 mouth. ity of (METAMUCIL 19:05: [place] ORAL) Medical Branch docusate Yes 100mg Take 100 Univ ers (STOOL 6-06 mg by ity of SOFTENER) 19:05: mouth [place] 100 mg 27 daily. Medical capsule Branch furosemide Yes 20mg Take 20 mg U nivers 20 mg 6-06 by mouth ity of tablet 19:05: daily. [place] [address] Medical Branch aspirin 81 Yes 81mg Take 81 mg U nivers mg chewable 6-06 by mouth ity of tablet 19:05: daily. [place] [address] Medical Branch ALBUTEROL Yes Inhale. Unive rs SULFATE 6-06 ity of (VENTOLIN 19:05: [place] HFA INHALE) Medical Branch POLYETHYLEN Yes Take by Un candie E GLYCOL 6-06 mouth. ity of 3350 19:05: [place] (MIRALAX 27 Medical ORAL) Branch PSYLLIUM Yes Take by Unive rs HUSK 6-06 mouth. ity of (METAMUCIL 19:05: [place] ORAL) Medical Branch estradiol Yes APPLY Univers 0.01 % (0.1 6-01 SMALL DAB ity of mg/gram) 00:00: TO FINGER [place] vaginal 00 AND INSERT Medica l cream INTO Branch VAGINA DAILY estradiol Yes APPLY Univers 0.01 % (0.1 6-01 SMALL DAB ity of mg/gram) 00:00: TO FINGER [place] vaginal 00 AND INSERT Medica l cream INTO Branch VAGINA DAILY estradiol Yes APPLY Univers 0.01 % (0.1 6-01 SMALL DAB ity of mg/gram) 00:00: TO FINGER [place] vaginal 00 AND INSERT Medica l cream INTO Branch VAGINA DAILY estradiol Yes APPLY Univers 0.01 % (0.1 6-01 SMALL DAB ity of mg/gram) 00:00: TO FINGER [place] vaginal 00 AND INSERT Medica l cream INTO Branch VAGINA DAILY estradiol Yes APPLY Univers 0.01 % (0.1 6-01 SMALL DAB ity of mg/gram) 00:00: TO FINGER [place] vaginal 00 AND INSERT Medica l cream INTO Branch VAGINA DAILY acetaminoph Yes TAKE 1 Univ ers en-codeine 5-17 TABLET BY ity of 300-30 mg 00:00: MOUTH 3 [place] tablet 00 TIMES A Medical DAY Branch NEEDED acetaminoph Yes TAKE 1 Univ ers en-codeine 5-17 TABLET BY ity of 300-30 mg 00:00: MOUTH 3 [place] tablet 00 TIMES A Medical DAY Branch NEEDED acetaminoph Yes TAKE 1 Univ ers en-codeine 5-17 TABLET BY ity of 300-30 mg 00:00: MOUTH 3 [place] tablet 00 TIMES A Medical DAY Branch NEEDED acetaminoph Yes TAKE 1 Univ ers en-codeine 5-17 TABLET BY ity of 300-30 mg 00:00: MOUTH 3 [place] tablet 00 TIMES A Medical DAY Branch NEEDED acetaminoph Yes TAKE 1 Univ ers en-codeine 5-17 TABLET BY ity of 300-30 mg 00:00: MOUTH 3 [place] tablet 00 TIMES A Medical DAY Branch NEEDED omeprazole Yes TAKE ONE Uni vers 40 mg 5-06 CAPSULE BY ity of capsule 00:00: MOUTH ONCE [place] 00 A DAY Medical AFTER A Branch MEAL omeprazole Yes TAKE ONE Uni vers 40 mg 5-06 CAPSULE BY ity of capsule 00:00: MOUTH ONCE [place] 00 A DAY Medical AFTER A Branch MEAL omeprazole Yes TAKE ONE Uni vers 40 mg 5-06 CAPSULE BY ity of capsule 00:00: MOUTH ONCE [place] 00 A DAY Medical AFTER A Branch MEAL omeprazole 2017- Yes TAKE ONE Uni vers 40 mg 5-06 CAPSULE BY ity of capsule 00:00: MOUTH ONCE [place] 00 A DAY Medical AFTER A Branch MEAL omeprazole 2017-0 Yes TAKE ONE Uni vers 40 mg 5-06 CAPSULE BY ity of capsule 00:00: MOUTH ONCE [place] 00 A DAY Medical AFTER A Branch MEAL simvastatin Yes TAKE 1 Univ ers 40 mg 5-04 TABLET BY ity of tablet 00:00: MOUTH AT [place] [address] BEDTIME Medical FOR Branch CHOLESTERO L simvastatin Yes TAKE 1 Univ ers 40 mg 5-04 TABLET BY ity of tablet 00:00: MOUTH AT [place] BEDTIME Medical FOR Branch CHOLESTERO L simvastatin Yes TAKE 1 Univ ers 40 mg 5-04 TABLET BY ity of tablet 00:00: MOUTH AT [place] [address] BEDTIME Medical FOR Branch CHOLESTERO L simvastatin Yes TAKE 1 Univ ers 40 mg 5-04 TABLET BY ity of tablet 00:00: MOUTH AT [place] [address] BEDTIME Medical FOR Branch CHOLESTERO L simvastatin Yes TAKE 1 Univ ers 40 mg 5-04 TABLET BY ity of tablet 00:00: MOUTH AT [place] [address] BEDTIME Medical FOR Branch CHOLESTERO L losartan-hy Yes TAKE 1 Univ ers drochloroth 4-28 TABLET BY ity of iazide 00:00: MOUTH ONCE [place] 50-12.5 mg 00 A DAY FOR Medi cecilio per tablet BLOOD Branch PRESSURE losartan-hy Yes TAKE 1 Univ ers drochloroth 4-28 TABLET BY ity of iazide 00:00: MOUTH ONCE [place] 50-12.5 mg 00 A DAY FOR Medi cecilio per tablet BLOOD Branch PRESSURE losartan-hy Yes TAKE 1 Univ ers drochloroth 4-28 TABLET BY ity of iazide 00:00: MOUTH ONCE [place] 50-12.5 mg 00 A DAY FOR Medi cecilio per tablet BLOOD Branch PRESSURE losartan-hy Yes TAKE 1 Univ ers drochloroth 4-28 TABLET BY ity of iazide 00:00: MOUTH ONCE [place] 50-12.5 mg 00 A DAY FOR Medi cecilio per tablet BLOOD Branch PRESSURE losartan-hy Yes TAKE 1 Univ ers drochloroth 4-28 TABLET BY ity of iazide 00:00: MOUTH ONCE [place] 50-12.5 mg 00 A DAY FOR Medi cecilio per tablet BLOOD Branch PRESSURE carvedilol carvedilol No carvedilol [facility] 6.25 mg 6.25 mg 6.25 mg Family tablet Take tablet Take tablet Practic 1 tablet 1 tablet Take 1 e twice a day twice a day tablet by oral by oral twice a route. route. day by oral route. cinacalcet cinacalcet No cinacalcet [facility] 60 mg 60 mg 60 mg Family tablet Take tablet Take tablet Practic 1 tablet 1 tablet Take 1 e every day every day tablet by oral by oral every day route. route. by oral route. cyclobenzap cyclobenzap No cyclobenza [facility] rine 5 mg rine 5 mg bridget 5 mg Family tablet tablet tablet Practic e estradiol estradiol No estradiol [facility] 0.01% (0.1 0.01% (0.1 0.01% (0.1 Family mg/gram) mg/gram) mg/gram) Pra ctic vaginal vaginal vaginal e cream cream cream multivitami multivitami No 1capsul Q1D multivitam [place] [...] suspension suspension suspension omeprazole omeprazole No omeprazole [facility] 40 mg 40 mg 40 mg Family capsule,del capsule,del capsule,de Practic ayed ayed layed e release release release Take 1 Take 1 Take 1 capsule capsule capsule every day every day every day by oral by oral by oral route. route. route. ondansetron ondansetron No ondansetro [facility] 8 mg 8 mg n 8 mg Family disintegrat disintegrat disintegra Practic ing tablet ing tablet ting e tablet sertraline sertraline No sertraline [facility] 50 mg 50 mg 50 mg Family tablet tablet tablet Practic e simvastatin simvastatin No simvastati [facility] 40 mg 40 mg n 40 mg Family tablet Take tablet Take tablet Practic 1 tablet 1 tablet Take 1 e every day every day tablet by oral by oral every day route. route. by oral route. sucralfate sucralfate No sucralfate [place] 1 gram 1 gram 1 gram Family tablet Take tablet Take tablet Practic 1 tablet 4 1 tablet 4 Take 1 e times a day times a day tablet 4 by oral by oral times a route. route. day by oral route. aspirin 81 aspirin 81 No 1 Q1D aspirin 81 [place] mg mg mg Family tablet,estefany tablet,estefany tablet,del Practic yed release yed release ayed e Take 1 Take 1 release tablet tablet Take 1 every day every day tablet by oral by oral every day route. route. by oral route. Oseltamivir Oseltamivir Yes Arash not [facility] Immunizations Ordered Immunization Filled Immunization Date Status Commen ts Source Name Name influenza, influenza, 2018-12-08 Completed [facility] injectable, injectable, 00:00:00 Practice quadrivalent quadrivalent influenza, influenza, 2017-12-08 Completed [facility] injectable, injectable, 00:00:00 Practice quadrivalent quadrivalent Vital Signs Vital Name Observation Time Observation Value Comments Source Height 2020-05-30 00:00:00 67 [in_i] [facility] Practice BMI (Body Mass 2020-05-30 00:00:00 23.5 kg/m2 [facility] e Family Index) Practice Body Weight 2020-05-30 00:00:00 150 [lb_av] [facility] Family Practice Height 2019-11-19 00:00:00 67 [in_i] [facility] Family Practice Height 2019 00:00:00 67 [in_i] [facility] Family Practice Height 2019-07-12 00:00:00 67 [in_i] [facility] Family Practice BMI (Body Mass 2019-07-12 00:00:00 28.7 kg/m2 [facility] Family Index) Practice Body Weight 2019-07-12 00:00:00 183 [lb_av] [facility] Practice Procedures Procedure Date / Time Performed Performing Clinician Sourc e Appendectomy [facility] Family P ractice Cholecystectomy [facility] P ractice Encounters Start End Encounter Admission Attending Care Care Encounter Source Date/Time Date/Time Type Type Clinicians Facility Department ID 2021-05-31 Outpatient Aguirre, [facility] 16:[facility] Luis Antonio [address] [facility] 2021-05-03 [facility] 10:[facility] Luis Antonio 85711 [facility] 2021-04-04 [facility], [facility] [id number] [facility] 14:21:45 Luis Antonio 18243 [facility] 2021-04-04 [facility], [facility] [id number] 14:18:06 Luis Antonio 57118 [facility] 2021-04-04 [facility], [facility] [id number] 14:11:12 Luis Antonio 39507 [facility] 2021-04-04 [facility], [facility] [id number] 14:00:37 Luis Antonio 80366 [facility] 2021-04-04 [facility] 14:[facility]:21 Luis Antonio 31452 [facility] 2021-04-04 [facility], [facility] [id number] 13:57:02 Luis Antonio 19506 [facility] 2021-04-04 [facility]irre, [facility] 13:09:14 Luis Antonio 95605 [facility] 2021-04-04 Outpatient Aguirre, [facility] 12:59:34 Luis Natonio 34503 [facility] 2021-04-04 Outpatient [facility] 11:00:26 [id number] [facility] 2021-05-03 2021-05-03 [place] [id number] [facility] 08:01:00 08:01:00 0224 Medica l Group 2020-12-01 2020-12-01 [facility] [id number] [facility] 2020-11-28 2020-11-28 Outpatient DMG [facility] [id number] [facility] 08:00:00 08:00:00 0921 Medica l Group 2020-11-09 2020-11-09 Outpatient IHDE_G MMG [id number] [place] 04:32:00 04:32:00 0902 [facility] 2020-08-01 2020-08-01 Outpatient Rosalinda-Mbayo VFP VFP [id number] [facility] 10:33:00 10:33:00 _A_AH 66983 Family Practic e 2020-08-01 2020-08-01 Outpatient Rosalinda-Mbayo VFP VFP [id number] [facility] 10:33:00 10:33:00 _A_AH 18572 Family Practic e 2020-06-23 2020-06-23 Outpatient Rosalinda-Mbayo VFP VFP [id number] [facility] 05:26:00 05:26:00 _A_AH 41712 Family Practic e 2020-06-02 2020-06-02 Outpatient Rosalinda-Mbayo VFP VFP [id number] [facility] 09:05:00 09:05:00 _A_AH 95571 Family Practic e 2020-06-02 2020-06-02 Outpatient Rosalinda-Mbayo VFP VFP [id number] [facility] 09:05:00 09:05:00 _A_AH 16553 Family Practic e 2020-05-30 2020-05-30 Zaina VFP [place] - [id number] V illage 00:00:00 00:00:00 RosalindaAmrita [facility] haley tsang, WORKSHOP MANAGER: Medical - Prackalpana An35 Yeny [email or web address] [facility], [place] [address], [place] [address] , Ph. 2020-04-28 2020-04-28 Outpatient IHDE_G MMG MMG [id number] [place] 03:44:00 03:44:00 0219 [facility] 2020-04-28 2020-04-28 Outpatient IHDE_G MMG MMG [id number] [place] 03:44:00 03:44:00 0419 [facility] 2020-04-28 2020-04-28 Outpatient IHDE_G MMG MMG [id number] [place] 03:44:00 03:44:00 0825 [facility] 2020-03-27 2020-03-27 Outpatient Rosalinda-Mbayo VFP VFP [id number] [facility] 03:47:00 03:47:00 _A_AH 15392 Family Practic e 2019-11-24 2019-11-24 Outpatient Rosalinda-Mbayo VFP VFP [id number] [facility] 10:10:00 10:10:00 _A_AH 20844 Family Practic e 2019-11-19 2019-11-19 Zaina VFP [place] - [id number] V illage 00:00:00 00:00:00 Lali [facility] Timo tsang WORKSHOP MANAGER: Satish irene [address] [email or web address] [facility], [place] [address], [place] [address] , Ph. 2019-10-25 2019-10-25 Outpatient Rosalinda-Mbayo VFP VFP [id number] [facility] 07:35:00 07:35:00 _A_AH 36431 Family Practic e 2019-10-20 2019-10-20 Outpatient Rosalinda-Mbayo VFP VF [id number] [facility] 06:54:00 06:54:00 _A_AH 69402 Family Practic e 2019-10-14 2019-10-14 Outpatient Rosalinda-Mbayo VFP VFP [id number] [facility] 07:50:00 07:50:00 _A_AH 21604 Family Practic e 2019-10-13 2019-10-13 Outpatient Rosalinda-Mbayo VFP [facility] [id number] [facility] 07:13:00 07:13:00 _A_AH 69694 Family Practic e 2019-09-28 2019-09-28 [facility] [id number] 00:00:00 00:00:00 [facility] [id number] [place] [id number] Professio [phone] [place] [address] Office [facility] 2019-09-28 2019-09-28 [facility] [id number] [facility] 00:00:00 00:00:00 [facility] [id number] it y of [place] [id number] Juan Carlos as Professio [phone] [address] 2019-09-27 2019-09-27 Outpatient Rosalinda-Mbayo VFP [facility] [id number] [facility] 04:29:00 04:29:00 _A_AH 77847 Family Practic e 2019-09-27 2019-09-27 Telephone PACHECO Workman [id number] 00:00:00 00:00:00 Luann A ALIDA [id number] HOSPITAL [id number] [id number] [facility] 2019-09-27 2019-09-27 Telephone [facility]HE[place] Workman [id number] [facility] 00:00:00 00:00:00 Luann A [place] [id number] ity of [facility] [id number] Juan Carlos as [id number] [address] 2019-09-25 2019-09-25 Outpatient R [facility] [id number] Univers 14:40:00 14:40:00 [id number] ity of [facility] 2019-09-25 2019-09-25 Outpatient R [facility] [id number] Univers 14:40:00 14:40:00 ity of [facility] 2019-09-25 2019-09-25 Laboratory Lab, [facility] [id number] 14:12:55 14:32:55 Only Fam Pob I Health [id number] [place] [id number] Professio [id number] [address] 2019-09-25 2019-09-25 Laboratory Lab, [facility] Fam Pob I [facility] [id number]. [id number] [facility] 14:12:55 14:32:55 Only Anene, Debbie Health [id number] ity of [place] [id number] Juan Carlos as Professio [id number] [facility] [address] Office [facility] 2019-09-25 2019-09-25 Letter Doctor BERGMAN [id number] 00:00:00 00:00:00 (Out) Unassigned, ALIDA [id number] [place] [facility] [id number] [id number] [facility] 2019-09-25 2019-09-25 Letter Doctor BERGMAN [id number] 00:00:00 00:00:00 (Out) Unassigned, ALIDA [id number] [place] [facility] [id number] [id number] [facility] 2019-09-25 2019-09-25 Letter Doctor BERGMAN [id number] Univers 00:00:00 00:00:00 (Out) Unassigned, ALIDA [id number] ity of [place] [facility] 4.2.7.2.686 Juan Carlos as [id number] [address] 2019-09-25 2019-09-25 Letter Doctor PACHECO [id number] Univers 00:00:00 00:00:00 (Out) Unassigned, ALIDA [id number] ity of [place] [facility] [id number] Juan Carlos as [phone] [place] [address] Branch 2019-09-21 2019-09-21 Outpatient Rosalinda-Mbayo VFP VFP [id number] [facility] 07:31:00 07:31:00 _A_AH [id number] Family Practic e 2019-09-14 2019-09-14 Outpatient Rosalinda-Mbayo VFP VFP [id number] [facility] 08:40:00 08:40:00 _A_AH 64195 Family Practic e 2019 2019 Outpatient Rosalinda-Mbayo VFP VFP [id number] [facility] 07:35:00 07:35:00 _A_AH 72456 Family Practic e 2019 2019 Zaina VFP [place] - [id number] [place] illage 00:00:00 00:00:00 Rosalinda-Mbay [facility] Fam haley tsang WORKSHOP MANAGER: Medical - Practi c [address] [email or web address] [facility], [address] [place] [address], [place] [address] , Ph. 2019-08-31 2019-08-31 Outpatient Rosalinda-Mbayo VFP VFP [id number] [facility] 01:18:00 01:18:00 _A_AH 77190 Family Practic e 2019-08-06 2019-08-06 Outpatient Rosalinda-Mbayo VFP VFP [id number] [facility] 02:55:00 02:55:00 _A_AH 09052 Family Practic e 2019-08-06 2019-08-06 Outpatient Rosalinda-Mbayo VFP VFP [id number] [facility] 02:55:00 02:55:00 _A_AH 08833 Family Practic e 2019-08-05 2019-08-05 Outpatient Rosalinda-Mbayo VFP VFP [id number] [facility] 07:17:00 07:17:00 _A_AH 29807 Family Practic e 2019-07-19 2019-07-19 Outpatient Rosalinda-Mbayo VFP VFP [id number] [facility] 10:59:00 10:59:00 _A_AH 72578 Family Practic e 2019-07-15 2019-07-15 Outpatient Rosalinda-Daisy [facility] [address] [place] [address] 10:27:00 10:27:00 _A_AH 51214 Family Practic e 2019-07-12 2019-07-12 Zaina [facility] [place] - [id number] V illage 00:00:00 00:00:00 [facility]reket [facility] Fam haley tsang WORKSHOP MANAGER: Medical - Practi c [address] [email or web address] [facility], [address] [place] [address], [place] [address] , Ph. 2019-06-07 2019-06-07 Outpatient Rosalinda-Daisy [facility] [address] [place] [address] 10:19:00 10:19:00 _A_AH 46816 Family Practic e 2019-05-20 2019-05-20 Out[facility] [id number] [facility] 09:15:00 09:15:00 [facility] 2019-05-13 2019-05-13 Out[facility] [id number] 09:00:00 09:00:00 t [facility] ent [facility] 2019-04-28 2019-04-28 Outpatient Gregorio [facility] [address] [place] [id number] 07:17:00 07:17:00 _A_AH [id number] 2019-04-15 2019-04-15 [facility] [id number] [facility] [address] 15:59:00 15:59:00 [facility] 2019-04-15 2019-04-15 [facility] [id number] [facility] [address] 08:45:00 08:45:00 [facility] Results This patient has no known results.
[2021-06-18 22:43] LABS: Absolute Lymphocytes (CBC) 2.4 K/uL (0.7-4.9); Hematocrit 34.7 % (36.0-45.0); Lymphocytes % 31.3 % (15.3-44.8); MPV 7.8 fL (7.6-11.3); RBC Red Blood Cell Count 3.99 M/uL (3.86-4.86)
[2021-06-18 22:47] LABS: Protime INR 1.02
[2021-06-18 23:11] LABS: Albumin 3.3 g/dL (3.4-5.0); Bilirubin Direct 0.1 mg/dL (0-0.2); Bilirubin Total 0.3 mg/dL (0.2-1.0); Magnesium 2.4 mg/dL (1.8-2.4); Phosphorus 2.5 mg/dL (2.5-4.9); Potassium 3.7 mmol/L (3.5-5.1); Protein, Total 7.3 g/dL (6.4-8.2); Thyroid Stimulating Hormone 1.78 uIU/mL (0.360-3.740); Troponin High Sensitivity 4.5 pg/mL (<58.9)
[2021-06-19 00:25] LABS: Urine Blood Negative (Negative); Urine Glucose Negative (Negative); Urine Protein Negative (Negative); Urine Specific Gravity 1.015 (1.005-1.030)
[2021-06-19] MEDS ORDERED: MECLIZINE HCL 12.5 MG TAB ONE (00:30)
--- NOTE | 2021-06-19 01:01 | ER ---
Nurse's Notes [facility] Name: Hannah Wick Age: 70 yrs Sex: Female : 1950 Arrival Date: 06/18/2021 Time: 19:40 Bed 8 Private MD: Diagnosis: Dizziness and giddiness Presentation: 06/18 20:36 Chief complaint: Patient states: States on Friday I couldn't speak or talk and it it ll3 happened again today around noon, c/o dizziness. Coronavirus screen: Vaccine status: Patient reports receiving the 2nd dose of the covid vaccine. At this time, the client does not indicate any symptoms associated with coronavirus-19. Ebola Screen: No symptoms or risks identified at this time. Initial Sepsis Screen: Does the patient meet any 2 criteria? No. Patient's initial sepsis screen is negative. Does the patient have a suspected source of infection? No. Patient's initial sepsis screen is negative. Risk Assessment: Do you want to hurt yourself or someone else? Patient reports no desire to harm self or others. Onset of symptoms was June 18, 2021 at 14:00. 20:36 Method Of Arrival: Ambulatory ll3 20:36 Acuity: MARIPOSA 2 bb Triage Assessment: 20:38 General: Appears uncomfortable, Behavior is calm, cooperative. Pain: Denies pain. ll3 Neuro: Level of Consciousness is awake, alert, obeys commands, Oriented to person, place, time, situation, Reports dizziness. Respiratory: Respiratory effort is even, unlabored, Respiratory pattern is regular, symmetrical. Derm: Skin is pink, warm \T\ dry. Historical: - Allergies: 20:38 PENICILLINS; ll3 20:38 sertraline; ll3 - PMHx: 20:38 Hypertension; Hyperlipidemia; ll3 - PSHx: 20:38 Cholecystectomy; Thyroidectomy; Appendectomy; ll3 - Immunization history:: Client reports receiving the 2nd dose of the Covid vaccine. - Social history:: Smoking status: Patient denies any tobacco usage or history of. Screenin:48 Abuse screen: Denies threats or abuse. Denies injuries from another. Nutritional lp1 screening: No deficits noted. Tuberculosis screening: No symptoms or risk factors identified. 06/19 00:00 Fall Risk None identified. lp1 Assessment: 04/11 22:30 General: Appears in no apparent distress. Behavior is calm, cooperative, appropriate lp1 for age. Pain: Denies pain. Neuro: Level of Consciousness is awake, alert, obeys commands, Oriented to person, place, time, situation, Moves all extremities. Full function Pupils are PERRLA, Intact Reports dizziness, since 1400 today. Cardiovascular: Patient's skin is warm and dry. Respiratory: Respiratory effort is even, unlabored. GI: Patient currently denies nausea. : No signs and/or symptoms were reported regarding the genitourinary system. EENT: No signs and/or symptoms were reported regarding the EENT system. Derm: Skin is pink, warm \T\ dry. Musculoskeletal: No deficits noted. 06/19 00:17 Reassessment: Patient reports dizziness on transitions during orthostatics. lp1 01:15 Reassessment: Patient ambulated independently to bathroom at this time; Reports lp1 significant relief of dizziness; Provider aware Patient states feeling better. Vital Signs: 06/18 20:36 BP 185 / 99; Pulse 61; Temp 97.9(TE); Pulse Ox 97% ; Weight 64.41 kg (R); Height 5 ft. ll3 4 in. (162.56 cm) (R); 22:35 BP 188 / 76; Pulse 59; Resp 14; Pulse Ox 97% on R/A; Pain 0/10; lp1 06/19 00:10 BP 152 / 79 Supine; Pulse 59; lp1 00:10 BP 164 / 91 Sitting; Pulse 61; lp1 00:10 BP 176 / 92 Standing; Pulse 65; lp1 00:45 BP 154 / 75; Pulse 54; Resp 16; Pulse Ox 98% on R/A; lp1 01:15 BP 144 / 69; Pulse 55; Resp 14; Pulse Ox 98% on R/A; Pain 0/10; lp1 06/18 20:36 Body Mass Index 24.37 (64.41 kg, 162.56 cm) ll3 ED Course: 06/18 19:40 Patient arrived in ED. bp1 20:38 Triage completed. ll3 20:38 Arm band placed on left wrist. ll3 21:47 Gerardo Bernal MD is Attending Physician. 7 22:15 Christy Delgado RN is Primary Nurse. lp1 22:35 Patient has correct armband on for positive identification. Placed in gown. Bed in low lp1 position. residential monitor on. Pulse ox on. NIBP on. 22:35 Inserted saline lock: 20 gauge in right forearm, using aseptic technique. Blood lp1 collected. 22:52 CT Head Brain wo Cont In Process Unspecified. EDMS 22:57 XRAY Chest (1 view) In Process Unspecified. EDMS 04 01:00 Kb Rolon MD is Referral Physician. [facility] 01:31 No provider procedures requiring assistance completed. IV discontinued, No lp1 redness/swelling at site. Pressure dressing applied. Administered Medications: 00:28 Drug: Meclizine 25 mg Route: PO; lp1 01:31 Follow up: Response: Marked relief of symptoms lp1 Outcome: 01:00 Discharge ordered by . [facility] 01:31 Discharged to home ambulatory, with family. lp1 01:31 Condition: good 01:31 Discharge instructions given to patient, Instructed on discharge instructions, follow up and referral plans. medication usage, Demonstrated understanding of instructions, follow-up care, medications, Prescriptions given X 1. 01:32 Patient left the ED. lp1 Signatures: Dispatcher [employer] EDHI Rosangela Ruiz RN RN bb Christy Delgado RN RN lp1 Mara Cornelius Maurice, MD MD 7 Nisha Matos, RN RN ll3 Corrections: (The following items were deleted from the chart) 06/18 21:41 20:36 Acuity: MARIPOSA 3 ll3 bb
--- NOTE | 2021-06-19 01:01 | EDPHYS ---
Physician Documentation [facility] Name: Hannah Wick Age: 70 yrs Sex: Female : 1950 Arrival Date: 06/18/2021 Time: 19:40 Bed 8 Private MD: ED Physician Gerardo Bernal HPI: 06/18 22:28 This 70 yrs old Female presents to ER via Ambulatory with complaints of mh7 Dizziness. 22:28 The patient presents with dizziness, lightheadedness, feeling off balance. Onset: The mh7 symptoms/episode began/occurred today, at 12:00. Context: occurred at home, occurred while the patient was sitting, just prior to the episode the patient experienced no apparent symptoms. Modifying factors: The symptoms are alleviated by nothing, the symptoms are aggravated by standing up. Associated signs and symptoms: Pertinent negatives: abdominal pain, agitation, ataxia, blurred vision, chest pain, combativeness, confusion, diaphoresis, focal weakness, head injury, headache, nausea, near-syncope, numbness, palpitations, seizure, shortness of breath, syncope, tingling, vomiting. Severity of symptoms: At their worst the symptoms were moderate today, in the emergency department the symptoms have improved moderately. Patient's baseline: Neuro: alert and fully oriented, Motor: no deficits, Ambulation: walks without assistance, Speech: normal. Family reports 3 days ago patient was talking then could not speak for about 25-30 minutes. She then seemed confused and had slurry speech. She could not remember those events the following day. Today she started having dizziness, lightheaded without any of the symptoms from 3 days ago.. Historical: - Allergies: 20:38 PENICILLINS; ll3 20:38 sertraline; ll3 - PMHx: 20:38 Hypertension; Hyperlipidemia; ll3 - PSHx: 20:38 Cholecystectomy; Thyroidectomy; Appendectomy; ll3 - Immunization history:: Client reports receiving the 2nd dose of the Covid vaccine. - Social history:: Smoking status: Patient denies any tobacco usage or history of. ROS: 22:28 Constitutional: Negative for fever, chills, and weight loss, Eyes: Negative for injury, mh7 pain, redness, and discharge, ENT: Negative for injury, pain, and discharge, Neck: Negative for injury, pain, and swelling, Cardiovascular: Negative for chest pain, palpitations, and edema, Respiratory: Negative for shortness of breath, cough, wheezing, and pleuritic chest pain, Abdomen/GI: Negative for abdominal pain, nausea, vomiting, diarrhea, and constipation, Back: Negative for injury and pain, : Negative for injury, bleeding, discharge, and swelling, MS/Extremity: Negative for injury and deformity, Skin: Negative for injury, rash, and discoloration, Neuro: Negative for headache, weakness, numbness, tingling, and seizure, Psych: Negative for depression, anxiety, suicide ideation, homicidal ideation, and hallucinations, Allergy/Immunology: Negative for hives, rash, and allergies, Endocrine: Negative for neck swelling, polydipsia, polyuria, polyphagia, and marked weight changes, Hematologic/Lymphatic: Negative for swollen nodes, abnormal bleeding, and unusual bruising. Exam: 22:28 Constitutional: This is a well developed, well nourished patient who is awake, alert, mh7 and in no acute distress. Head/Face: Normocephalic, atraumatic. Eyes: Pupils equal round and reactive to light, extra-ocular motions intact. Lids and lashes normal. Conjunctiva and sclera are non-icteric and not injected. Cornea within normal limits. Periorbital areas with no swelling, redness, or edema. Neck: Trachea midline, no thyromegaly or masses palpated, and no cervical lymphadenopathy. Supple, full range of motion without nuchal rigidity, or vertebral point tenderness. No Meningismus. Chest/axilla: Normal chest wall appearance and motion. Nontender with no deformity. No lesions are appreciated. Cardiovascular: Regular rate and rhythm with a normal S1 and S2. No gallops, murmurs, or rubs. Normal PMI, no JVD. No pulse deficits. Respiratory: Lungs have equal breath sounds bilaterally, clear to auscultation and percussion. No rales, rhonchi or wheezes noted. No increased work of breathing, no retractions or nasal flaring. Abdomen/GI: Soft, non-tender, with normal bowel sounds. No distension or tympany. No guarding or rebound. No evidence of tenderness throughout. Back: No spinal tenderness. No costovertebral tenderness. Full range of motion. Skin: Warm, dry with normal turgor. Normal color with no rashes, no lesions, and no evidence of cellulitis. MS/ Extremity: Pulses equal, no cyanosis. Neurovascular intact. Full, normal range of motion. Psych: Awake, alert, with orientation to person, place and time. Behavior, mood, and affect are within normal limits. Vital Signs: 20:36 BP 185 / 99; Pulse 61; Temp 97.9(TE); Pulse Ox 97% ; Weight 64.41 kg (R); Height 5 ft. ll3 4 in. (162.56 cm) (R); 22:35 BP 188 / 76; Pulse 59; Resp 14; Pulse Ox 97% on R/A; Pain 0/10; lp1 04/12 00:10 BP 152 / 79 Supine; Pulse 59; lp1 00:10 BP 164 / 91 Sitting; Pulse 61; lp1 00:10 BP 176 / 92 Standing; Pulse 65; lp1 00:45 BP 154 / 75; Pulse 54; Resp 16; Pulse Ox 98% on R/A; lp1 01:15 BP 144 / 69; Pulse 55; Resp 14; Pulse Ox 98% on R/A; Pain 0/10; lp1 04/11 20:36 Body Mass Index 24.37 (64.41 kg, 162.56 cm) ll3 MDM: 00:56 Differential diagnosis: cardiac arrhythmia, CVA, generalized weakness, hypovolemia, mh7 idiopathic dizziness, near-syncope, syncope, TIA, vertigo. Data reviewed: vital signs, nurses notes, old medical records, lab test result(s), cardiac enzymes, CBC, electrolytes, urinalysis, EKG, radiologic studies, CT scan, plain films. Data interpreted: Pulse oximetry: on room air is 97 %. Interpretation: normal. Counseling: I had a detailed discussion with the patient and/or guardian regarding: the historical points, exam findings, and any diagnostic results supporting the discharge/admit diagnosis, the presence of at least one elevated blood pressure reading (>120/80) during this emergency department visit, lab results, radiology results, the need for outpatient follow up, to return to the emergency department if symptoms worsen or persist or if there are any questions or concerns that arise at home. Response to treatment: the patient's symptoms have resolved after treatment, the patient's blood pressure is in an acceptable range, mental status has returned to baseline, the patient no longer shows bradycardia, the patient is not short of breath, the patient is not tachycardic, the patient's pain is gone, the patient's temperature has normalized. ED course: Well appearing, NAD, VSS, no focal neurological deficits. Dizziness has resolved. Discussed test results and findings. Patient requests to be discharged from the ED at this time. She will follow up with her doctor but agreed to return to the ER if return of symptoms or other concerns.. 01:00 Patient medically screened. [facility] 06/18 22:05 Order name: Basic Metabolic Panel; Complete Time: 23:18 [facility] 06/18 22:05 Order name: CBC with Diff; Complete Time: 23:12 [facility] 06/18 22:05 Order name: LFT's; Complete Time: 23:18 [facility] 06/18 22:05 Order name: Magnesium; Complete Time: 23:18 [facility] 06/18 22:05 Order name: NT PRO-BNP; Complete Time: 23:18 [facility] 06/18 22:05 Order name: PT-INR; Complete Time: 23:12 [facility] 06/18 22:05 Order name: Troponin HS; Complete Time: 23:18 [facility] 06/18 22:05 Order name: XRAY Chest (1 view) [facility] 06/18 22:05 Order name: EKG; Complete Time: 22:05 [facility] 06/18 22:05 Order name: Phosphorus; Complete Time: 23:18 [facility] 06/18 22:05 Order name: TSH; Complete Time: 23:18 [facility] 06/18 22:05 Order name: CT Head Brain wo Cont [facility] 06/19 00:25 Order name: Urine Dipstick-Ancillary; Complete Time: 00:28 [facility] 06/18 22:05 Order name: Cardiac monitoring; Complete Time: 22:46 [facility] 06/18 22:05 Order name: EKG - Nurse/Tech; Complete Time: 22:34 [facility] 06/18 22:05 Order name: IV Saline Lock; Complete Time: 22:46 [facility] 06/18 22:05 Order name: Labs collected and sent; Complete Time: 22:47 [facility] 06/18 22:05 Order name: O2 Per Protocol; Complete Time: 22:47 [facility] 06/18 22:05 Order name: O2 Sat Monitoring; Complete Time: 22:47 [facility] 06/18 22:05 Order name: Urine Dipstick-Ancillary (obtain specimen); Complete Time: 00:24 [facility] 06/18 22:34 Order name: Orthostatics; Complete Time: 00:18 [facility] Administered Medications: 00:28 Drug: Meclizine 25 mg Route: PO; lp1 01:31 Follow up: Response: Marked relief of symptoms lp1 Disposition Summary: 06/19/21 01:00 Discharge Ordered Location: Home [facility] Problem: an acute exacerbation [facility] Symptoms: have improved [facility] Condition: Stable [facility] Diagnosis - Dizziness and giddiness [facility] Followup: [facility] - With: Private Physician - When: 1 - 2 days - Reason: Worsening of condition, Recheck today's complaints, Continuance of care, Re-evaluation by your physician Followup: [facility] - With: Kb Rolon MD - When: 1 - 2 days - Reason: Worsening of condition, Recheck today's complaints, Continuance of care, Re-evaluation by your physician Discharge Instructions: - Discharge Summary Sheet [facility] - Dizziness, [id number] [facility] Forms: - Medication Reconciliation Form [facility] - Thank You Letter [facility] - Antibiotic Education [facility] - Prescription Opioid Use [facility] Prescriptions: - Meclizine 25 mg Oral Tablet - take 1 tablet by ORAL route every 8 hours As needed; 15 tablet; Refills: 0, [facility] Product Selection Permitted Signatures: Dispatcher [employer] Christy Coombs RN RN lp1 Gerardo Bernal MD MD 7 Nisha Matos RN RN ll3
[2021-06-19 10:28] VITALS: TEMP 97.9
[2021-06-19 10:33] VITALS: O2SAT 98
[2021-06-19 10:34] VITALS: BP 144/69
--- NOTE | 2021-06-19 15:05 | RAD REPORT ---
EXAM DESCRIPTION: RAD - Chest Single View - 06/18/2021 10:55 pm CLINICAL HISTORY: 70 years, Female, Dizziness COMPARISON: None. FINDINGS: Single view of the chest was obtained portable. No prior films are available for compariso n. The cardiomediastinal silhouette demonstrate to be unremarkable. The heart is not enlarged. The thoracic aorta is mildly tortuous. The pulmonary vasculature is normal distribution. Costophrenic ang les are sharp. No areas of consolidation or masses are seen. The rest of the soft tissue and bony structures demonstrate to be unremarkable. IMPRESSION: No acute cardiopulmonary disease. Electronically signed by: Galen Holman MD 06/18/2021 11:14 PM CDT Due to temporary technical issues with the PACS/Fluency reporting system, reports are being signed by the in house radiologists without review as a courtesy to insure prompt reporting. The interpreting radiologist is fully responsible for the content of the report.
--- NOTE | 2021-06-19 15:10 | RAD REPORT ---
EXAM DESCRIPTION: CT - Head Brain Wo Cont - 06/19/2021 7:04 am CLINICAL HISTORY: DIZZINESS COMPARISON: 04/30/2020. TECHNIQUE: CT HEAD WITHOUT IV CONTRAST on 06/18/2021 10:05 PM CDT This exam was performed according to our departmental dose-optimization program, which includes autom ated exposure control, adjustment of the mA and/or kV according to patient size and/or use of iterati ve reconstruction technique. FINDINGS: There is no acute hemorrhage, mass effect or midline shift. Kelly-white differentiation is preserved. There is no hydrocephalus. There is no significant volume loss for age. The calvarium is intact. Orbits and globes are unremarkable. The paranasal sinuses are clear. Mastoid air cells are clear. IMPRESSION: No acute intracranial findings. Electronically signed by: Clemente Appiah MD 06/18/2021 11:09 PM CDT Due to temporary technical issues with the PACS/Fluency reporting system, reports are being signed by the in house radiologists without review as a courtesy to insure prompt reporting. The interpreting radiologist is fully responsible for the content of the report.
--- NOTE | 2021-06-20 11:03 | EKG ---
Test Date: 2021-06-18 Test Time: 22:24:27 Supervisor [employer]: DEBORA MEASUREMENT RESULTS: Intervals: Rate: 47 IN: 178 QRSD: 76 QT: 428 QTc: 378 [place]: P: 59 IN: 178 QRS: 34 T: 65 INTERPRETIVE STATEMENTS: Sinus bradycardia Otherwise normal ECG Compared to ECG 12/18/2020 15:19:25 No significant changes Electronically Signed On 06-20-21 10:57:55 CDT by Leodan Maguire
== END 2021-06-19 01:32 | disposition home or self-care (01) ==
LOC: ER 19:36
DX: R42 Dizziness and giddiness (principal); I10 Essential (primary) hypertension; E78.5 Hyperlipidemia, unspecified; Z88.0 Allergy status to penicillin; Z88.8 Allergy status to other drugs, medicaments and biological substances
CPT/HCPCS: 93005; 85025; 80048; 36415; 83735; 84100; 85610; 80076; 84443; 81003; 84484; 83880; 70450; 71045; 99284; J8597

== ENCOUNTER 2022-12-08 08:42 | Inpatient (IN) | payer OTHER ==
--- OUTSIDE RECORDS SUMMARY | 2022-12-08 08:46 | XMS REPORT | Continuity of Care Document ---
:1950 Author Organization [facility] t Address [address] [facility] [address] [place] [address] Care Team Providers Name Role Phone Aguirre, Luis Antonio Ramsey Attending Clinician Unavailable ZULEMA BAE Attending Clinician Unavailable ANTONIA VANEGAS Attending Clinician Unavailable IHDE_G Attending Clinician Unavailable Rosalinda-Mbayo_A_AH Attending Clinician Unavailable Marivel Galarza Attending Clinician Luann Workman Attending Clinician Unavailable Lab, Adc Fam Pob I Attending Clinician Unavailable Debbie Zhang Attending Clinician Doctor Unassigned, [place] Attending Clinician Unavailable Herman Bacon Admitting Clinician Unavailable KELLY WEST Admitting Clinician Unavailable IHDE_G Admitting Clinician Unavailable Rosalinda-Mbayo_A_AH Admitting Clinician Unavailable Payers Payer Name Policy Type Policy Number Effective Date Expiration Date S poppy HUMANA MEDICARE [id number] 2022 ADVANTAGE HMO 00:00:00 [facility] [id number] (MEDICARE 00:00:00 REPLACEMENT HMO) HUMANA MEDICARE [id number] [facility] HUMANA - GOLD [id number] PLUS (MEDICARE REPLACEMENT HMO) [place] - [id number] 2019 [place] 00:00:00 (MEDICARE REPLACEMENT/ADVAN TAGE - HMO) [place] PLUS SNP [id number] 2014 00:00:00 Problems Condition Condition Condition Status Onset Resolution Last Treating Co mments Source Name Details Category Date Date Treatment Clinician Date Moderate Moderate Problem Active Lucas ge protein-ca Protein-ca 3-23 Fa mai toure 00:00: Practic malnutriti Malnutriti 00 e on (weight on (Weight for age for Age 60-74% of 60-74% of standard) Standard) Senile Senile Problem Active 2019-03 [facility] purpura Purpura 2-21 Family 00:00: Practic 00 e Hyperlipid Hyperlipid Problem Active V illage emia emia 7 Family 00:00: Practic 00 e Gastroesop Gastroesop Problem Active V illage hageal hageal 09-17 Family reflux Reflux 00:00: Practic disease Disease 00 e [id number] Primary Problem Active Comm on osteoarthr Spirit itis of - [facility] right knee [facility] [id number] Primary Problem Active Comm on osteoarthr Spirit itis of - [facility] left knee [facility] [id number] Rheumatoid Problem Active Co mmon arthritis Spirit involving - [facility] multiple [facility] unspecifie Medica l d whether Center rheumatoid factor present [id number] History of Problem Active Co mmon DVT (deep Spirit vein - [facility] thrombosis [facility] [id number] Essential Problem Active Comm on hypertensi Spirit on - [facility] [id number] Type 2 Problem Active Common diabetes Spirit mellitus - [facility] with [facility] Center long-term current use of insulin [id number] GERD Problem Active Common without Spirit esophagiti - [facility] s [facility] [id number] Primary Problem Active Common hyperparat Spirit hyroidism - [facility] [id number] Mixed Problem Active Common hyperlipid Spirit emia - [facility] Allergies, Adverse Reactions, Alerts Allergy Allergy Status Severity Reaction(s) Onset Inactive Treating Comm ents Source Name Type Date Date Clinician Penicill Propensi Active Hives Univer s in ty to 6-06 ity of adverse 00:00: [place] reaction 00 Medical s Branch PENICILL DRUG Active Hives Univers IN INGREDI 606 ity of 00:00: [place] 00 Medical Branch PENICILL Allergy Active Mild to Hives [place] to moderate Family substanc Practic e e 0 Drug Active Unknown Common allergy [facility] Social History Social Habit Start Date Stop Date Quantity Comments Source History of Tobacco Use Co mmon [facility] Sex Assigned At Com mon [facility] Exposure to SARS-CoV-2 Yes [facility] [place] (event) Medical Branch Smoking Status Start Date Stop Date Source Never Smoker [facility] Medications Ordered Filled Start Stop Current Ordering Indication Dosage Frequency Signature Comments Components Source Medication Medication Date Date Medication? Clinician (SIG) Name Name furosemide Yes 20mg Take 20 mg U nivers 20 mg 6-06 by mouth ity of tablet 19:05: daily. [place] [address] Medical Branch aspirin 81 Yes 81mg Take 81 mg U nivers mg chewable 6-06 by mouth ity of tablet 19:05: daily. [place] [address] Medical Branch ALBUTEROL Yes Inhale. Unive rs SULFATE 6-06 ity of (VENTOLIN 19:05: [place] HFA INHALE) Medical Branch POLYETHYLEN Yes Take by Uni vers E GLYCOL 6-06 mouth. ity of 3350 19:05: [place] (MIRALAX 27 Medical ORAL) Branch PSYLLIUM Yes Take by Univer s HUSK 6-06 mouth. ity of (METAMUCIL 19:05: [place] ORAL) Medical Branch docusate Yes 100mg Take 100 Univ ers (STOOL 6-06 mg by ity of SOFTENER) 19:05: mouth [place] 100 mg 27 daily. Medical capsule Branch furosemide Yes 20mg Take 20 mg U nivers 20 mg 6-06 by mouth ity of tablet 19:05: daily. [place] [address] Medical Branch aspirin 81 Yes 81mg Take 81 mg U nivers mg chewable 6-06 by mouth ity of tablet 19:05: daily. [place] [address] Medical Branch ALBUTEROL Yes Inhale. Unive rs SULFATE 6-06 ity of (VENTOLIN 19:05: [place] HFA INHALE) 27 Medical Branch POLYETHYLEN Yes Take by Uni vers E GLYCOL 6-06 mouth. ity of 3350 19:05: [place] (MIRALAX 27 Medical ORAL) Branch PSYLLIUM Yes Take by Univer s HUSK 6-06 mouth. ity of (METAMUCIL 19:05: [place] ORAL) Medical Branch docusate Yes 100mg Take 100 Univ ers (STOOL 6-06 mg by ity of SOFTENER) 19:05: mouth [place] 100 mg 27 daily. Medical capsule Branch furosemide Yes 20mg Take 20 mg U nivers 20 mg 6-06 by mouth ity of tablet 19:05: daily. [address] Branch aspirin 81 Yes 81mg Take 81 mg U nivers mg chewable 6-06 by mouth ity of tablet 19:05: daily. [place] [address] Medical Branch ALBUTEROL Yes Inhale. Unive rs SULFATE 6-06 ity of (VENTOLIN 19:05: [place] HFA INHALE) Medical Branch POLYETHYLEN Yes Take by Uni vers E GLYCOL 6-06 mouth. ity of 3350 19:05: [place] (MIRALAX 27 Medical ORAL) Branch PSYLLIUM Yes Take by Univer s HUSK 6-06 mouth. ity of (METAMUCIL 19:05: [place] ORAL) Medical Branch docusate Yes 100mg Take 100 Univ ers (STOOL 6-06 mg by ity of SOFTENER) 19:05: mouth [place] 100 mg 27 daily. Medical capsule Branch furosemide Yes 20mg Take 20 mg U nivers 20 mg 6-06 by mouth ity of tablet 19:05: daily. [address] Branch aspirin 81 Yes 81mg Take 81 mg U nivers mg chewable 6-06 by mouth ity of tablet 19:05: daily. [place] [address] Medical Branch ALBUTEROL 0 Yes Inhale. Unive rs SULFATE 6-06 ity of (VENTOLIN 19:05: [place] HFA INHALE) Medical Branch POLYETHYLEN Yes Take by Uni vers E GLYCOL 6-06 mouth. ity of 3350 19:05: [place] (MIRALAX 27 Medical ORAL) Branch PSYLLIUM Yes Take by Univer s HUSK 6-06 mouth. ity of (METAMUCIL 19:05: [place] ORAL) Medical Branch docusate Yes 100mg Take 100 Univ ers (STOOL 6-06 mg by ity of SOFTENER) 19:05: mouth [place] 100 mg 27 daily. Medical capsule Branch furosemide Yes 20mg Take 20 mg U nivers 20 mg 6-06 by mouth ity of tablet 19:05: daily. [place] [address] Medical Branch aspirin 81 Yes 81mg Take 81 mg U nivers mg chewable 08-13 by mouth ity of tablet 19:05: daily. [place] [address] Medical Branch ALBUTEROL Yes Inhale. Unive rs SULFATE 08-13 ity of (VENTOLIN 19:05: [place] HFA INHALE) Medical Branch POLYETHYLEN Yes Take by Uni vers E GLYCOL 08-13 mouth. ity of 3350 19:05: [place] (MIRALAX 27 Medical ORAL) Branch PSYLLIUM Yes Take by Univer s HUSK 6-06 mouth. ity of (METAMUCIL 19:05: [place] ORAL) 27 Medical Branch docusate Yes 100mg Take 100 Univ ers (STOOL 6-06 mg by ity of SOFTENER) 19:05: mouth [place] 100 mg 27 daily. Medical capsule Branch estradiol Yes APPLY Univers 0.01 % [...] l cream INTO Branch VAGINA DAILY acetaminoph 2018-0 Yes TAKE 1 Univ ers en-codeine 5-17 TABLET BY ity of 300-30 mg 00:00: MOUTH 3 [place] tablet 00 TIMES A Medical DAY Branch NEEDED acetaminoph 2018-0 Yes TAKE 1 Univ ers en-codeine 5-17 TABLET BY ity of 300-30 mg 00:00: MOUTH 3 [place] tablet 00 TIMES A Medical DAY Branch NEEDED acetaminoph 2018-0 Yes TAKE 1 Univ ers en-codeine 5-17 TABLET BY ity of 300-30 mg 00:00: MOUTH 3 [place] tablet 00 TIMES A Medical DAY Branch NEEDED acetaminoph 2018-0 Yes TAKE 1 Univ ers en-codeine 5-17 TABLET BY ity of 300-30 mg 00:00: MOUTH 3 [place] tablet 00 TIMES A Medical DAY Branch NEEDED acetaminoph 2018-0 Yes TAKE 1 Univ ers en-codeine 5-17 TABLET BY ity of 300-30 mg 00:00: MOUTH 3 [place] tablet 00 TIMES A Medical DAY Branch NEEDED omeprazole 2017- Yes TAKE ONE Uni vers 40 mg 5-06 CAPSULE BY ity of capsule 00:00: MOUTH ONCE [place] 00 A DAY Medical AFTER A Branch MEAL omeprazole 2018-0 Yes TAKE ONE Uni vers 40 mg 5-06 CAPSULE BY ity of capsule 00:00: MOUTH ONCE [place] 00 A DAY Medical AFTER A Branch MEAL omeprazole 2018-0 Yes TAKE ONE Uni vers 40 mg 5-06 CAPSULE BY ity of capsule 00:00: MOUTH ONCE [place] 00 A DAY Medical AFTER A Branch MEAL omeprazole 2018-0 Yes TAKE ONE Uni vers 40 mg 5-06 CAPSULE BY ity of capsule 00:00: MOUTH ONCE [place] 00 A DAY Medical AFTER A Branch MEAL omeprazole 2018-0 Yes TAKE ONE Uni vers 40 mg 5-06 CAPSULE BY ity of capsule 00:00: MOUTH ONCE [place] 00 A DAY Medical AFTER A Branch MEAL simvastatin 2017-0 Yes TAKE 1 Univ ers 40 mg 5-04 TABLET BY ity of tablet 00:00: MOUTH AT [place] 00 BEDTIME Medical FOR Branch CHOLESTERO L simvastatin 2017- Yes TAKE 1 Univ ers 40 mg 5-04 TABLET BY ity of tablet 00:00: MOUTH AT [place] 00 BEDTIME Medical FOR Branch CHOLESTERO L simvastatin Yes TAKE 1 Univ ers 40 mg 5-04 TABLET BY ity of tablet 00:00: MOUTH AT [place] BEDTIME Medical FOR Branch CHOLESTERO L simvastatin Yes TAKE 1 Univ ers 40 mg 5-04 TABLET BY ity of tablet 00:00: MOUTH AT [place] BEDTIME Medical FOR Branch CHOLESTERO L simvastatin Yes TAKE 1 Univ ers 40 mg 5-04 TABLET BY ity of tablet 00:00: MOUTH AT [place] BEDTIME Medical FOR Branch CHOLESTERO L losartan-hy [...] BLOOD Branch PRESSURE carvedilol carvedilol No carvedilol [facility] 6.25 mg 6.25 mg 6.25 mg Family tablet Take tablet Take tablet Practic 1 tablet 1 tablet Take 1 e twice a day twice a day tablet by oral by oral twice a route. route. day by oral route. cinacalcet cinacalcet No cinacalcet [facility] 60 mg 60 mg 60 mg Family tablet Take tablet Take tablet Practic 1 tablet 1 tablet Take 1 e every day every day tablet by oral by oral every day route. route. by oral route. cyclobenzap cyclobenzap No cyclobenza [facility] rine 5 mg rine 5 mg bridget 5 mg Family tablet tablet tablet Practic e estradiol estradiol No estradiol [place] 0.01% (0.1 [...] suspension suspension suspension omeprazole omeprazole No omeprazole [facility] 40 mg 40 mg 40 mg Family capsule,del capsule,del capsule,de Practic ayed ayed layed e release release release Take 1 Take 1 Take 1 capsule capsule capsule every day every day every day by oral by oral by oral route. route. route. ondansetron ondansetron No ondansetro [facility] 8 mg 8 mg n 8 mg Family disintegrat disintegrat disintegra Practic ing tablet ing tablet ting e tablet sertraline sertraline No sertraline [facility] 50 mg 50 mg 50 mg Family tablet tablet tablet Practic e simvastatin simvastatin No simvastati [facility] 40 mg 40 mg n [...] oral route. Oseltamivir Oseltamivir Yes Arash not Common Phosphate Phosphate Griffith defined Sp elsie [facility] ASA ASA Yes Arash not Common Griffith defined [facility] Sucralfate Sucralfate Yes Arash not Common Griffith defined [facility] Cinacalcet Cinacalcet Yes Arash not Common HCl HCl Griffith defined [facility] potassium potassium Yes Arash not Co mmon Griffith defined [facility] Fish Oil Fish Oil Yes Arash not Comm on Griffith defined [facility] Omeprazole Omeprazole Yes Arash not Common Griffith defined [facility] Losartan Losartan Yes Arash not Comm on Potassium Potassium Griffith defined [facility] Coreg Coreg Yes Arash not Common Griffith defined [facility] Estradiol Estradiol Yes Arash not Co mmon Griffith defined [facility] Clotrimazol Clotrimazol Yes Arash not Common e e Griffith defined [facility] Simvastatin Simvastatin Yes Arash not Common Griffith defined [facility] Clotrimazol Clotrimazol No 1{appli BID Clotrimazo e 1 % e 1 % cation} le 1 % potassium potassium No potassium Furosemide Furosemide No 1{table QD Furosemide 20 MG 20 MG t} 20 MG Losartan Losartan No Losartan Potassium Potassium Potassium Fish Oil Fish Oil No Fish Oil Oseltamivir Oseltamivir No Oseltamivi Phosphate Phosphate r Phosphate Cinacalcet Cinacalcet No Cinacalcet HCl HCl HCl Simvastatin Simvastatin No Simvastati n Omeprazole Omeprazole No Omeprazole Potassium Potassium No 1{table QD Potassium 99 MG 99 MG t} 99 MG Clotrimazol Clotrimazol No Clotrimazo e e le Aspir-Low Aspir-Low No 1{table QD Aspir-Low 81 MG 81 MG t} 81 MG Omeprazole Omeprazole No QD Omeprazole 40 MG 40 MG 40 MG Sucralfate Sucralfate No Sucralfate ASA ASA No ASA Albuterol Albuterol No 1{puff_ 6xD Albuterol Sulfate HFA Sulfate HFA as_need Sulfate 108 (90 108 (90 ed} HFA 108 Base) Base) (90 Base) MCG/ACT MCG/ACT MCG/ACT Coreg 6.25 Coreg 6.25 No 1{table BID Coreg 6.25 MG MG t_with_ MG food} Magnesium Magnesium No 1{table QD Magnesium Gluconate Gluconate t} Gluconate 550 MG 550 MG 550 MG Estradiol Estradiol No Estradiol Mobic 15 MG Mobic 15 MG No 1{table QD Mobic 15 t} MG Coreg Coreg No Coreg Cinacalcet Cinacalcet No QD Cinacalcet HCl 60 MG HCl 60 MG HCl 60 MG Vital Signs Vital Name Observation Time Observation Value Comments Source Height 2020-05-30 00:00:00 67 [in_i] [facility] BMI (Body Mass 2020-05-30 00:00:00 23.5 kg/m2 [facility] Practice Body Weight 2020-05-30 00:00:00 150 [lb_av] [facility] Height 2019-11-19 00:00:00 67 [in_i] [facility] Height 2019 00:00:00 67 [in_i] [facility] Height 2019-07-12 00:00:00 67 [in_i] [facility] BMI (Body Mass 2019-07-12 00:00:00 28.7 kg/m2 [facility]) Practice Body Weight 2019-07-12 00:00:00 183 [lb_av] [facility] Procedures Procedure Date / Time Performed Performing Clinician Sourc e Appendectomy [facility] Cholecystectomy [facility] Encounters Start End Encounter Admission Attending Care Care Encounter Source Date/Time Date/Time Type Type Clinicians Facility Department ID 2022-11-25 [facility] [id number] Common 09:21:00 [facility] [address] [facility] 2022-10-09 Outpatient Aguirre, STLMLC ST[facility] [id number] Common 09:16:00 [facility] [address] [facility] 2022-08-23 Outpatient Aguirre, STLMLC ST[facility] [id number] Common 11:44:01 [facility] 38984 [facility] 2022-08-15 Outpatient [facility] [id number] [place] 11:25:16 [id number] [facility] 2022-05-31 Outpatient Aguirre, STLMLC ST[facility] [id number] Common 10:17:00 [facility] [address] [facility] 2022-02-20 Outpatient Aguirre, STLMLC ST[facility] [id number] Common 09:08:01 [facility] 26778 [facility] 2022-02-18 Outpatient Aguirre, STLMLC STLMLC [id number] Common 13:05:01 Luis Antonio 76917 [facility] 2021-10-31 Outpatient Aguirre, STLMLC STLMLC [id number] Common 08:55:01 Luis Antonio [facility] 2021-05-31 Outpatient Aguirre, STLMLC STLMLC [id number] Common 16:02:01 Luis Antonio [facility] 2021-05-03 Outpatient Aguirre, STLMLC STLMLC [id number] Common 10:08:00 Luis Antonio [facility] 2021-04-04 Outpatient Aguirre, STLMLC STLMLC [id number] Common 14:21:45 Luis Antonio [address] [facility] 2021-04-04 Outpatient Aguirre, STLMLC STLMLC [id number] Common 14:18:06 Luis Antonio 06529 [facility] 2021-04-04 Outpatient Aguirre, STLMLC STLMLC [id number] Common 14:11:12 Luis Antonio 39530 [facility] 2021-04-04 Outpatient Aguirre, STLMLC STLMLC [id number] Common 14:00:37 Luis Antonio 11436 [facility] 2021-04-04 Outpatient Aguirre, STLMLC STLMLC [id number] Common 14:00:21 Luis Antonio 66175 [facility] 2021-04-04 Outpatient Aguirre, STLMLC STLMLC [id number] Common 13:57:02 Luis Antonio 18319 [facility] 2021-04-04 Outpatient Aguirre, STLMLC STLMLC [id number] Common 13:09:14 Luis Antonio 14958 [facility] 2021-04-04 Outpatient Aguirre, STLMLC STLMLC [id number] Common 12:59:34 Luis Antonio 18871 [facility] 2021-04-04 Outpatient STLMLC STLMLC [id number] Common 11:00:26 77769 [facility] 2022-08-08 2022-08-10 Inpatient E CATALINO, [facility] CAR 9367 [facility] 08:49:00 14:45:00 ZULEMA 2022-08-08 2022-08-08 Outpatient GUILHERME [facility] ANDREA 9370 [facility] 08:37:00 23:59:00 ANTONIA 2021-09-21 2021-09-21 Outpatient [facility] [id number] [facility]oted 03:22:00 03:22:00 0715 Medica l Group 2021-05-03 2021-05-03 [facility] [id number] [facility] 08:01:00 08:01:00 0224 Medica l Group 2020-12-01 2020-12-01 (TEL) STLMLC STLC [id number] Co mmon 00:00:00 00:00:00 [facility] 2020-11-28 2020-11-28 Outpatient DM[facility] [id number] [facility] 08:00:00 08:00:00 0921 Medica l Group 2020-11-09 2020-11-09 Outpatient IHDE_G [facility] [id number] [place] 04:32:00 04:32:00 0902 [facility] 2020-08-01 2020-08-01 Outpatient Rosalinda-Mbayo VFP VFP [id number] [facility] 10:33:00 10:33:00 _A_AH 39126 Family Practic e 2020-08-01 2020-08-01 Outpatient Rosalinda-Mbayo VFP VFP [id number] [facility] 10:33:00 10:33:00 _A_AH 44687 Family Practic e 2020-06-23 2020-06-23 Outpatient Rosalinda-Mbayo VFP VFP [id number] [facility] 05:26:00 05:26:00 _A_AH 80493 Family Practic e 2020-06-02 2020-06-02 Outpatient Rosalinda-Mbayo VFP VFP [id number] [facility] 09:05:00 09:05:00 _A_AH 32359 Family Practic e 2020-06-02 2020-06-02 Outpatient Rosalinda-Mbayo VFP VFP [id number] [facility] 09:05:00 09:05:00 _A_AH 29954 Family Practic e 2020-05-30 2020-05-30 Zaina VFP [place] - [id number] V illage 00:00:00 00:00:00 Lali [facility] haley trinh, BODY STYLIST: Medical - Practi c [address] [email or web address] [email or web address], [place] [address], [place] [address] , Ph. 2020-04-28 2020-04-28 Outpatient IHDE_G MMG MMG [id number] [place] 03:44:00 03:44:00 0219 [facility] 2020-04-28 2020-04-28 Outpatient IHDE_G MMG MMG [id number] [place] 03:44:00 03:44:00 0419 [facility] 2020-04-28 2020-04-28 Outpatient IHDE_G MMG MMG [id number] [place] 03:44:00 03:44:00 0825 [facility] 2020-03-27 2020-03-27 Outpatient Rosalinda-Mbayo VFP VFP [id number] [facility] 03:47:00 03:47:00 _A_AH 63050 Family Practic e 2019-11-24 2019-11-24 Outpatient Rosalinda-Mbayo VFP VFP [id number] [facility] 10:10:00 10:10:00 _A_AH 84275 Family Practic e 2019-11-19 2019-11-19 Zaina VFP [place] - [id number] V illage 00:00:00 00:00:00 Lali [facility] haley o, BODY STYLIST: Medical - Practi c [address] [email or web address], [place] [address], [place] [address] , Ph. 2019-10-25 2019-10-25 Outpatient Rosalinda-Mbayo VFP VFP [id number] [facility] 07:35:00 07:35:00 _A_AH 14033 Family Practic e 2019-10-20 2019-10-20 Outpatient Rosalinda-Mbayo VFP VFP [id number] [facility] 06:54:00 06:54:00 _A_AH 29962 Family Practic e 2019-10-14 2019-10-14 Outpatient Rosalinda-Mbayo VFP P [id number] 07:50:00 07:50:00 _A_AH 51877 Family Practic e 2019-10-13 2019-10-13 Outpatient Rosalinda-Mbayo VFP [facility] [id number] 07:13:00 07:13:00 _A_AH 90495 Family Practic e 2019-09-28 2019-09-28 [facility] [id number] [facility] 00:00:00 00:00:00 [facility] [id number] it y of [place] [id number] Juan Carlos as Professio [phone] Co dic[address] Office Building One 2019-09-28 2019-09-28 [facility] [id number] 00:00:00 00:00:00 [facility] [id number] [place] [id number] Professio [phone] [place] [address] [address] 2019-09-27 2019-09-27 Outpatient Rosalinda-Mbayo VFP [facility] [id number] 04:29:00 04:29:00 _A_AH 57290 Family Practic e 2019-09-27 2019-09-27 Telephone PACHECO Workman [id number] [facility] 00:00:00 00:00:00 Luann A ALIDA [id number] ity of [facility] [id number] Juan Carlos as [phone] [address] 2019-09-27 2019-09-27 Telephone PACHECO Workman [id number] 00:00:00 00:00:00 Luann A ALIDA [id number] [facility] [id number] [id number] [facility] 2019-09-25 2019-09-[address] [facility] [id number] [facility] 14:40:00 14:40:00 ity of [facility] 2019-09-25 2019-09-25 Laboratory Lab, [facility] Fam Pob I [facility] 1.2. [id number] [facility] 14:12:55 14:32:55 Only Debbie [facility] [id number] ity of [place] [id number] Juan Carlos as Professio [phone] Co dical [address] Office Building [facility] 2019-09-25 2019-09-25 Laboratory Lab, [facility] 1.2.840.114 [id number] 14:12:55 14:32:55 Only Fam Pob I Health [id number] [place] 4.2.7.2.686 Professio [id number] [address] 2019-09-25 2019-09-25 Letter Doctor BERGMAN [id number] Univers 00:00:00 00:00:00 (Out) Unassigned, ALIDA [id number] ity of [facility] 4.2.7.2.686 Juan Carlos as [phone] [address] 2019-09-25 2019-09-25 Letter Doctor BERGMAN [id number] [id number] Univers 00:00:00 00:00:00 (Out) Unassigned, ALIDA [id number] ity of [facility] 4.2.7.2.686 Juan Carlos as [phone] [address] 2019-09-25 2019-09-25 Letter Doctor PACHECO Jorge.[id number] 00:00:00 00:00:00 (Out) Unassigned, ALIDA [id number] [facility] 4.2.7.2.686 [id number] [facility] 2019-09-25 2019-09-25 Letter Doctor PACHECO Jorge.[id number] 00:00:00 00:00:00 (Out) Unassigned, ALIDA 350.1.13.10 [facility] 4.2.7.2.686 [id number] [facility] 2019-09-21 2019-09-[address] [facility] [id number] [facility] 07:31:00 07:31:00 _A_AH 76395 Family Practic e 2019-09-14 2019-09-14 Outpatient Rosalinda-Mbayo VFP VFP [id number] [facility] 08:40:00 08:40:00 _A_AH 90456 Family Practic e 2019 2019 Outpatient Rosalinda-Mbayo VFP VFP [id number] [facility] 07:35:00 07:35:00 _A_AH 87810 Family Practic e 2019 2019 Zaina VFP [place] - [id number] [facility] ill[facility] 00:00:00 00:00:[facility] Fam haley tsang BODY STYLIST: Medical - Practi c [address] [email or web address], [address] [place] [address], [place] [address] , Ph. 2019-08-31 2019-08-31 Outpatient Rosalinda-Mbayo VFP VFP [id number] [facility] 01:18:00 01:18:00 _A_AH 58995 Family Practic e 2019-08-06 2019-08-06 Outpatient Rosalinda-Mbayo VFP VFP [id number] [facility] 02:55:00 02:55:00 _A_AH 31087 Family Practic e 2019-08-06 2019-08-06 Outpatient Rosalinda-Mbayo VFP VFP [id number] [facility] 02:55:00 02:55:00 _A_AH 28847 Family Practic e 2019-08-05 2019-08-05 Outpatient Rosalinda-Mbayo VFP VFP [id number] [facility] 07:17:00 07:17:00 _A_AH [id number] Family Practic e 2019-07-19 2019-07-19 Outpatient Rosalinda-Mbayo VFP VFP [phone] [facility] 10:59:00 10:59:00 _A_AH [id number] Family Practic e 2019-07-15 2019-07-15 Outpatient Rosalinda-Mbayo VFP VFP [phone] [facility] 10:27:00 10:27:00 _A_AH [id number] Family Practic e 2019-07-12 2019-07-12 Zaina VFP [place] - [id number] V [facility] 00:00:00 00:00:00 [facility] Fam haley tsang BODY STYLIST: Medical - Practi c [id number] [email or web address] e [facility], [address], [place] [address] , Ph. 2019-06-07 2019-06-07 Outpatient [facility] [address] [place] [address] 10:19:00 10:19:00 _A_AH [id number] Family Practic e 2019-05-20 2019-05-20 [facility] [id number] Common 09:15:00 09:15:00 t [facility] - [facility] 2019-05-13 2019-05-13 [facility] [id number] Common 09:00:00 09:00:00 t Bone Bone and Spiri t and Joint Joint - [facility] 2019-04-28 2019-04-28 Outpatient [facility] [address] [place] [address] 07:17:00 07:17:00 _A_AH [id number] Family Practic e 2019-04-15 2019-04-15 [facility] [id number] Common 15:59:00 15:59:00 t Bone Bone and Spiri t and Joint Joint - [facility] 2019-04-15 2019-04-15 [facility] [id number] Common 08:45:00 08:45:00 t Bone Bone and Spiri t and Joint Joint - [facility] Results This patient has no known results.
[2022-12-08 09:23] LABS: Urine Bacteria None Seen /HPF (<20); Urine Bilirubin NEGATIVE (Negative); Urine Blood Trace (Negative); Urine Clarity Turbid (Clear); Urine Color Light-Yellow (Yellow); Urine Glucose NEGATIVE (Negative); Urine Mucus Slight /HPF (None Seen); Urine Protein NEGATIVE (Negative); Urine RBC <5 /HPF (None Seen); Urine Urobilinogen Normal (Normal)
[2022-12-08 09:25] LABS: Absolute Lymphocytes (CBC) 2.2 K/uL (0.7-4.9); Hematocrit 34.2 % (36.0-45.0); Lymphocytes % 27.1 % (15.3-44.8); MCV 85.7 fL (80-100); MPV 8.3 fL (7.6-11.3); Platelets 256 thou/uL (152-406); Protime INR 0.98; RBC Red Blood Cell Count 3.99 M/uL (3.86-4.86)
[2022-12-08] MEDS ORDERED: NA CHLORIDE 0.9% 1,000 ML ONE ×2 (09:28→16:09)
[2022-12-08] MEDS ORDERED: CIPROFLOXACIN 400mg IV 400 MG/200 ML BAG IV ONE (09:28)
[2022-12-08] MEDS ORDERED: METRONIDAZOLE 500mg IVPB 500 MG/100 ML BAG IV ONE ×2 (09:28→17:21)
[2022-12-08 09:40] LABS: Bilirubin Direct 0.1 mg/dL (0-0.2); Bilirubin Indirect, Calculated 0.3 mg/dL (0.2-0.8); Bilirubin Total 0.4 mg/dL (0.2-1.0); Magnesium 2.3 mg/dL (1.6-2.4); Protein, Total 6.8 g/dL (6.4-8.2)
--- NOTE | 2022-12-08 09:48 | ER ---
Nurse's Notes [facility] Name: Hannah Wick Age: 72 yrs Sex: Female : 1950 Arrival Date: 12/08/2022 Time: 08:42 Bed 7 Private MD: Diagnosis: GI Bleed/ Gastrointestinal hemorrhage, unspecified-lower;Diverticulosis of large intestine without perforation or abscess with bleeding Presentation: 12/08 09:13 Chief complaint: Patient states: RECTAL BLEEDING WITH CLOTS STARTED THIS AM. db 09:13 Coronavirus screen: Vaccine status: Patient reports receiving the 2nd dose of the covid db vaccine. Client denies travel out of the [place] in the last 14 days. At this time, the client does not indicate any symptoms associated with coronavirus-19. Ebola Screen: Patient negative for fever greater than or equal to 101.5 degrees Fahrenheit, and additional compatible Ebola Virus Disease symptoms Patient denies exposure to infectious person. Patient denies travel to an Ebola-affected area in the 21 days before illness onset. No symptoms or risks identified at this time. Initial Sepsis Screen: Does the patient meet any 2 criteria? No. Patient's initial sepsis screen is negative. Does the patient have a suspected source of infection? No. Patient's initial sepsis screen is negative. Risk Assessment: Do you want to hurt yourself or someone else? Patient reports no desire to harm self or others. Onset of symptoms was December 08, 2022. 09:13 Method Of Arrival: Ambulatory db 09:13 Acuity: MARIPOSA 3 db Triage Assessment: 09:13 General: Appears in no apparent distress. comfortable, Behavior is calm, cooperative. db Pain: Complains of pain in abdomen. Neuro: Level of Consciousness is awake, alert, obeys commands, Oriented to person, place, time, situation. Respiratory: Airway is patent Respiratory effort is even, unlabored, Respiratory pattern is regular, symmetrical. GI: Abdomen is flat. Historical: - Allergies: 10:08 PENICILLINS; db 10:08 sertraline; db - Home Meds: 10:08 clopidogrel 75 mg oral tablet 1 tab daily [Active]; atorvastatin 40 mg oral tablet 1 db tab every day at bedtime [Active]; carvedilol 12.5 mg oral tablet 1 tab 2 times per day [Active]; - PMHx: 10:08 Hyperlipidemia; Hypertension; db - PSHx: 10:08 Appendectomy; Thyroidectomy; Cholecystectomy; db - Immunization history:: Adult Immunizations unknown. - Social history:: Smoking status: Patient denies any tobacco usage or history of. - Family history:: not pertinent. Screenin:47 [facility] ED Fall Risk Assessment (Adult) History of falling in the last 3 months, db including since admission No falls in past 3 months (0 pts) Confusion or Disorientation No (0 pts) Intoxicated or Sedated No (0 pts) Impaired Gait No (0 pts) Mobility Assist Device Used No (0 pt) Altered Elimination No (0 pt) Score/Fall Risk Level 0 - 2 = Low Risk Oriented to surroundings, Maintained a safe environment. Abuse screen: Denies threats or abuse. Denies injuries from another. Nutritional screening: No deficits noted. Tuberculosis screening: No symptoms or risk factors identified. Assessment: 10:11 Reassessment: Patient appears in no apparent distress at this time. Patient and/or db family updated on plan of care and expected duration. Pain level reassessed. Patient is alert, oriented x 3, equal unlabored respirations, skin warm/dry/pink. patient to CT. 10:46 Reassessment: Patient appears in no apparent distress at this time. Patient and/or db family updated on plan of care and expected duration. Pain level reassessed. Patient is alert, oriented x 3, equal unlabored respirations, skin warm/dry/pink. General: Appears in no apparent distress. comfortable, Behavior is calm, cooperative. Neuro: Level of Consciousness is awake, alert, obeys commands, Oriented to person, place, time, situation. Respiratory: Airway is patent Respiratory effort is even, unlabored, Respiratory pattern is regular, symmetrical. GI: Abdomen is flat, non-distended, Bowel sounds present X 4 quads. Reports rectal bleeding. 11:46 Reassessment: Patient appears in no apparent distress at this time. Patient and/or db family updated on plan of care and expected duration. Pain level reassessed. Patient is alert, oriented x 3, equal unlabored respirations, skin warm/dry/pink. 12:00 Reassessment: Patient appears in no apparent distress at this time. Patient and/or db family updated on plan of care and expected duration. Pain level reassessed. Patient is alert, oriented x 3, equal unlabored respirations, skin warm/dry/pink. 13:00 Reassessment: Patient appears in no apparent distress at this time. Patient and/or db family updated on plan of care and expected duration. Pain level reassessed. Patient is alert, oriented x 3, equal unlabored respirations, skin warm/dry/pink. General: Appears in no apparent distress. comfortable, Behavior is calm, cooperative. 14:00 Reassessment: Patient appears in no apparent distress at this time. Patient and/or db family updated on plan of care and expected duration. Pain level reassessed. Patient is alert, oriented x 3, equal unlabored respirations, skin warm/dry/pink. PATIENT AMBULATORY TO RESTROOM. 15:00 Reassessment: Patient appears in no apparent distress at this time. Patient and/or db family updated on plan of care and expected duration. Pain level reassessed. Patient is alert, oriented x 3, equal unlabored respirations, skin warm/dry/pink. Vital Signs: 09:13 BP 148 / 78; Pulse 54; Resp 18; Temp 97.1(TE); Pulse Ox 99% on R/A; Weight 54.43 kg db (R); Height 5 ft. 4 in. (R); 10:30 BP 138 / 98; Pulse 55; Resp 18; Pulse Ox 99% on R/A; db 11:00 BP 153 / 84; Pulse 58; Resp 18; Pulse Ox 99% on R/A; db 12:00 BP 106 / 67; Pulse 48; Resp 18; Pulse Ox 99% on R/A; db 13:00 BP 139 / 70; Pulse 55; Resp 18; Pulse Ox 99% on R/A; db 14:00 BP 137 / 82; Pulse 56; Resp 18; Pulse Ox 98% on R/A; db 15:00 BP 129 / 61; Pulse 53; Resp 16; Pulse Ox 98% on R/A; db 09:13 Body Mass Index 20.60 (54.43 kg, 162.56 cm) db Webster Coma Score: 09:26 Eye Response: spontaneous(4). Motor Response: obeys commands(6). Verbal Response: asher oriented(5). Total: 15. ED Course: 08:46 Patient arrived in ED. mg5 08:47 Millicent Coburn RN is Primary Nurse. jl7 08:49 David Webb MD is Attending Physician. asher 09:07 Inserted saline lock: 20 gauge in right antecubital area, using aseptic technique. db Blood collected. 09:13 Arm band placed on Patient placed in an exam room. db 09:46 Carlos Randhawa MD is Hospitalizing Provider. [facility] 10:07 Triage completed. db 10:18 XRAY Chest (1 view) In Process Unspecified. EDMS 10:26 CT Abd/Pelvis - IV Contrast Only In Process Unspecified. EDMS 10:47 Patient has correct armband on for positive identification. Bed in low position. Call db light in reach. Side rails up X 1. Client placed on continuous cardiac and pulse oximetry monitoring. NIBP monitoring applied. 15:00 No provider procedures requiring assistance completed. Patient admitted, IV remains in db place. 15:00 Provided Education on: ADMISSION. db Administered Medications: 09:22 Drug: metroNIDAZOLE IVPB 500 mg 100 ml IVPB at 200 ml/hr once over 30 mins Volume: 100 db ml; Route: IVPB; Rate: 200 ml/hr; Infused Over: 30 mins; Site: right antecubital; 10:01 Follow up: Response: No adverse reaction; IV Status: Completed infusion; IV Intake: db 100ml 09:22 Drug: NS 0.9% IV 500 ml IV at bolus once Route: IV; Rate: bolus; Site: right db antecubital; 10:11 Follow up: Response: No adverse reaction; IV Status: Completed infusion; IV Intake: db 500ml 09:22 Drug: NS 0.9% IV 1000 ml IV at 125 ml/hr continuous Route: IV; Rate: 125 ml/hr; Site: right antecubital; 14:00 Follow up: Response: No adverse reaction; IV Status: Completed infusion db 10:01 Drug: Ciprofloxacin IVPB 400 mg 200 ml IVPB once over 60 mins Volume: 200 ml; Route: db IVPB; Infused Over: 60 mins; Site: right antecubital; 11:45 Follow up: Response: No adverse reaction; IV Status: Completed infusion; IV Intake: db 200ml Medication: 15:00 VIS not applicable for this client. db Intake: 10:01 IV: 100ml; Total: 100ml. db 10:11 IV: 500ml; Total: 600ml. db 11:45 IV: 200ml; Total: 800ml. db Outcome: 09:47 Decision to Hospitalize by Provider. asher 15:00 Admitted to ER Hold. Please see [facility] for further documentation. db 15:00 Condition: stable 15:00 Instructed on the need for admit, 19:39 Patient left the ED. jb4 Signatures: Dispatcher [employer] EDDavid Nagy MD MD cha Bryson, James RN RN jb4 Millicent Coburn RN RN jl7 Jacklyn Granados RN RN Samia Schwarz mg5
--- NOTE | 2022-12-08 09:48 | EDPHYS ---
Physician Documentation [facility] Name: Hannah Wick Age: 72 yrs Sex: Female : 1950 Arrival Date: 12/08/2022 Time: 08:42 Bed 7 Private MD: NADIA Physician David Webb HPI: 12/08 09:25 This 72 yrs old Female presents to ER via Unassigned with complaints of Rectal asher Bleeding. 09:25 The patient presents with abdominal pain. asher 09:26 Onset: The symptoms/episode began/occurred just prior to arrival. The patient presents asher to the emergency department with rectal bleeding, bright red blood with bowel movement, in toilet bowl. Onset: The symptoms/episode began/occurred just prior to arrival. Abdominal pain: none is appreciated. Modifying factors: The symptoms are alleviated by nothing, the symptoms are aggravated by nothing. Associated signs and symptoms: The patient has no apparent associated signs or symptoms. The symptoms do not radiate. Associated signs and symptoms: Pertinent positives: blood in stools. The symptoms are described as crampy. Modifying factors: The symptoms are alleviated by nothing, the symptoms are aggravated by nothing. Severity of pain: At its worst the pain was mild in the emergency department the pain is unchanged. The patient has experienced similar episodes in the past, a few times. Historical: - Allergies: 10:08 PENICILLINS; db 10:08 sertraline; db - Home Meds: 10:08 clopidogrel 75 mg oral tablet 1 tab daily [Active]; atorvastatin 40 mg oral tablet 1 db tab every day at bedtime [Active]; carvedilol 12.5 mg oral tablet 1 tab 2 times per day [Active]; - PMHx: 10:08 Hyperlipidemia; Hypertension; db - PSHx: 10:08 Appendectomy; Thyroidectomy; Cholecystectomy; db - Immunization history:: Adult Immunizations unknown. - Social history:: Smoking status: Patient denies any tobacco usage or history of. - Family history:: not pertinent. ROS: 09:26 Constitutional: Negative for fever, chills, and weight loss, Eyes: Negative for injury, asher pain, redness, and discharge, ENT: Negative for injury, pain, and discharge, Neck: Negative for injury, pain, and swelling, Cardiovascular: Negative for chest pain, palpitations, and edema, Respiratory: Negative for shortness of breath, cough, wheezing, and pleuritic chest pain, Back: Negative for injury and pain, : Negative for injury, bleeding, discharge, and swelling, MS/Extremity: Negative for injury and deformity, Skin: Negative for injury, rash, and discoloration, Neuro: Negative for headache, weakness, numbness, tingling, and seizure, Psych: Negative for depression, anxiety, suicide ideation, homicidal ideation, and hallucinations, Allergy/Immunology: Negative for hives, rash, and allergies, Endocrine: Negative for neck swelling, polydipsia, polyuria, polyphagia, and marked weight changes, Hematologic/Lymphatic: Negative for swollen nodes, abnormal bleeding, and unusual bruising, : Abdomen/GI: Positive for abdominal cramps, rectal bleeding, Exam: : Constitutional: This is a well developed, well nourished patient who is awake, alert, asher and in no acute distress. Head/Face: Normocephalic, atraumatic. Eyes: Pupils equal round and reactive to light, extra-ocular motions intact. Lids and lashes normal. Conjunctiva and sclera are non-icteric and not injected. Cornea within normal limits. Periorbital areas with no swelling, redness, or edema. ENT: Nares patent. No nasal discharge, no septal abnormalities noted. Tympanic membranes are normal and external auditory canals are clear. Oropharynx with no redness, swelling, or masses, exudates, or evidence of obstruction, uvula midline. Mucous membranes moist. Neck: Trachea midline, no thyromegaly or masses palpated, and no cervical lymphadenopathy. Supple, full range of motion without nuchal rigidity, or vertebral point tenderness. No Meningismus. Chest/axilla: Normal chest wall appearance and motion. Nontender with no deformity. No lesions are appreciated. Cardiovascular: Regular rate and rhythm with a normal S1 and S2. No gallops, murmurs, or rubs. Normal PMI, no JVD. No pulse deficits. Respiratory: Lungs have equal breath sounds bilaterally, clear to auscultation and percussion. No rales, rhonchi or wheezes noted. No increased work of breathing, no retractions or nasal flaring. Back: No spinal tenderness. No costovertebral tenderness. Full range of motion. Female : Normal external genitalia. Skin: Warm, dry with normal turgor. Normal color with no rashes, no lesions, and no evidence of cellulitis. MS/ Extremity: Pulses equal, no cyanosis. Neurovascular intact. Full, normal range of motion. Neuro: Awake and alert, GCS 15, oriented to person, place, time, and situation. Cranial nerves II-XII grossly intact. Motor strength 5/5 in all extremities. Sensory grossly intact. Cerebellar exam normal. Normal gait. Psych: Awake, alert, with orientation to person, place and time. Behavior, mood, and affect are within normal limits. 09:26 Abdomen/GI: Inspection: abdomen appears normal, Bowel sounds: normal, Palpation: nontender, Liver: no appreciated palpable abnormalities, Hernia: not appreciated, 10:14 Abdomen/GI: Rectal exam: rectal tone normal, Stool: grossly bloody, maroon, asher hemorrhoid(s), are not appreciated, mass, is not appreciated, swelling, is not appreciated, tenderness, is not appreciated, fecal impaction, is not appreciated, 10:14 ECG was reviewed by the Attending Physician. asher Vital Signs: 09:13 BP 148 / 78; Pulse 54; Resp 18; Temp 97.1(TE); Pulse Ox 99% on R/A; Weight 54.43 kg db (R); Height 5 ft. 4 in. (R); 10:30 BP 138 / 98; Pulse 55; Resp 18; Pulse Ox 99% on R/A; db 11:00 BP 153 / 84; Pulse 58; Resp 18; Pulse Ox 99% on R/A; db 12:00 BP 106 / 67; Pulse 48; Resp 18; Pulse Ox 99% on R/A; db 13:00 BP 139 / 70; Pulse 55; Resp 18; Pulse Ox 99% on R/A; db 14:00 BP 137 / 82; Pulse 56; Resp 18; Pulse Ox 98% on R/A; db 15:00 BP 129 / 61; Pulse 53; Resp 16; Pulse Ox 98% on R/A; db 09:13 Body Mass Index 20.60 (54.43 kg, 162.56 cm) db [place] Coma Score: 09:26 Eye Response: spontaneous(4). Motor Response: obeys commands(6). Verbal Response: asher oriented(5). Total: 15. MDM: 08:49 Patient medically screened. asher 09:29 Differential diagnosis: hemorrhoids, hemorrhagic shock, varices, diverticulitis, asher gastroesophageal reflux disease, GI Bleed, Mesenteric ischemia or infarction, non-specific abd pain, pancreatitis, Peptic Ulcer Disease, urinary tract infection. Data reviewed: vital signs, nurses notes, lab test result(s), EKG, radiologic studies, CT scan, plain films. Consideration of Admission/Observation Escalation of care including admission/observation considered. I considered the following discharge prescriptions or medication management in the emergency department Medications were administered in the Emergency Department. See MAR. Independent interpretation of the following test(s) in the Emergency Department EKG: See my EKG interpretation above. Test considered but Not performed: Labs: no bleeding scan. Historians other than the Patient: Family Member: family member. Care significantly affected by the following chronic conditions: Hypertension. 12/08 08:52 Order name: Basic Metabolic Panel; Complete Time: 11:18 asher 12/08 08:52 Order name: CBC with Diff; Complete Time: 11:18 asher 12/08 08:52 Order name: LFT's; Complete Time: 11:18 asher 12/08 08:52 Order name: Magnesium; Complete Time: 11:18 asher 12/08 08:52 Order name: NT PRO-BNP; Complete Time: 11:18 asher 12/08 08:52 Order name: PT-INR; Complete Time: 11:18 asher 12/08 08:52 Order name: Troponin HS; Complete Time: 11:18 asher 12/08 08:52 Order name: Urinalysis w/ reflexes; Complete Time: 11:18 asher 12/08 08:52 Order name: Type And Screen; Complete Time: 11:18 asher 12/08 08:52 Order name: Lipase; Complete Time: 11:18 asher 12/08 11:49 Order name: Urinalysis w/ reflexes EDMS 12/08 11:49 Order name: Basic Metabolic Panel EDMS 12/08 11:49 Order name: Basic Metabolic Panel EDMS 12/08 11:49 Order name: Basic Metabolic Panel EDMS 12/08 11:49 Order name: Basic Metabolic Panel EDMS 12/08 11:49 Order name: CBC with Automated Diff EDMS 12/08 11:49 Order name: CBC with Automated Diff EDMS 12/08 11:49 Order name: CBC with Automated Diff EDMS 12/08 11:49 Order name: CBC with Automated Diff EDMS 12/08 11:49 Order name: Magnesium EDMS 12/08 11:49 Order name: Magnesium EDMS 12/08 11:49 Order name: Magnesium EDMS 12/08 11:49 Order name: Magnesium EDMS 12/08 11:49 Order name: Phosphorus EDMS 12/08 11:49 Order name: Phosphorus EDMS 12/08 11:49 Order name: Phosphorus EDMS 12/08 11:49 Order name: Phosphorus EDMS 12/08 16:01 Order name: Hemoglobin EDMS 12/08 08:52 Order name: XRAY Chest (1 view); Complete Time: 11:18 [facility] 12/08 08:52 Order name: CT Abd/Pelvis - IV Contrast Only [facility] 12/08 08:52 Order name: EKG; Complete Time: 08:52 [facility] 12/08 11:49 Order name: [facility] EDME 12/08 08:52 Order name: Cardiac monitoring; Complete Time: 10: [facility] 12/08 08:52 Order name: EKG - Nurse/Tech; Complete Time: 10: [facility] 12/08 08:52 Order name: IV Saline Lock; Complete Time: 09:14 [facility] 12/08 08:52 Order name: Labs collected and sent; Complete Time: 09:14 [facility] 12/08 08:52 Order name: O2 Per Protocol; Complete Time: 09:14 [facility] 12/08 08:52 Order name: O2 Sat Monitoring; Complete Time: 09:14 [facility] EC:14 Rate is 45 beats/min. Rhythm is regular. QRS [place] is Normal. [place] interval is normal. QRS asher interval is normal. QT interval is normal. No Q waves. T waves are Normal. No ST changes noted. Clinical impression: Sinus bradycardia and No evidence of ischemia. Interpreted by me. Reviewed by me. Administered Medications: 09:22 Drug: metroNIDAZOLE IVPB 500 mg 100 ml IVPB at 200 ml/hr once over 30 mins Volume: 100 db ml; Route: IVPB; Rate: 200 ml/hr; Infused Over: 30 mins; Site: right antecubital; 10: Follow up: Response: No adverse reaction; IV Status: Completed infusion; IV Intake: db 100ml 09: Drug: NS 0.9% IV 500 ml IV at bolus once Route: IV; Rate: bolus; Site: right db antecubital; 10:11 Follow up: Response: No adverse reaction; IV Status: Completed infusion; IV Intake: db 500ml 09:22 Drug: NS 0.9% IV 1000 ml IV at 125 ml/hr continuous Route: IV; Rate: 125 ml/hr; Site: db right antecubital; 14:00 Follow up: Response: No adverse reaction; IV Status: Completed infusion db 10:01 Drug: Ciprofloxacin IVPB 400 mg 200 ml IVPB once over 60 mins Volume: 200 ml; Route: db IVPB; Infused Over: 60 mins; Site: right antecubital; 11:45 Follow up: Response: No adverse reaction; IV Status: Completed infusion; IV Intake: db 200ml Disposition Summary: 12/08/22 09:47 Hospitalization Ordered Notes: Hospitalization Status: Inpatient Admission asher Provider: Carlos Randhawa cha Condition: Fair asher Problem: new asher Symptoms: have improved asher Bed/Room Type: Standard asher Location: Telemetry/MedSurg (Inpatient)(12/08/22 18:51) cg Room Assignment: [facility](12/08/22 18:51) Diagnosis - GI Bleed/ Gastrointestinal hemorrhage, unspecified - lower asher - Diverticulosis of large intestine without perforation or abscess with bleeding asher Forms: - Medication Reconciliation Form asher - SBAR form asher - Leadership Thank You Letter asher Signatures: Dispatcher [employer] David Allen MD MD cha Garcia, Cindy, RN RN Tera Lerner RN RN Jacklyn Ge RN RN db Corrections: (The following items were deleted from the chart) 15:21 09:47 Telemetry/MedSurg (Inpatient) asher ja1 15:21 09:47 asher ja1 18:51 15:21 [facility] ER HOLD ja1 cg 18:51 15:21 ERHOLD- ja1 cg
--- NOTE | 2022-12-08 10:36 | RAD REPORT ---
EXAM DESCRIPTION: RADChest Single View12/08/2022 10:16 am CLINICAL HISTORY: ABDOMINAL DISTENTION COMPARISON: Chest Single View dated 06/18/2021; Chest Single View dated 04/30/2020; Chest Single View dated 04/20/2020; Chest Single View dated 04/08/2020 TECHNIQUE: Portable AP view of the chest. FINDINGS: The lungs are clear. No pneumothorax or effusion. The cardiomediastinal contours are unre markable. IMPRESSION: No acute cardiopulmonary process.
--- NOTE | 2022-12-08 11:23 | RAD REPORT ---
EXAM DESCRIPTION: CT - Abdomen Pelvis W Contrast - 12/08/2022 10:24 am CLINICAL HISTORY: ABD PAIN COMPARISON: Abdomen Pelvis W Contrast dated 07/03/2022; Abdomen Pelvis W Contrast dated 01/16/2021 ; Abdomen Pelvis W Contrast dated 04/27/2020; Abdomen Pelvis W Contrast dated 04/20/2020 TECHNIQUE: Thin cut axial CT imaging of the abdomen and pelvis was performed following intravenous a dministration of 95 mL Isovue 300. Multiplanar reformats were generated and reviewed. All CT scans are performed using dose optimization technique as appropriate and may include automated exposure control or mA/KV adjustment according to patient size. FINDINGS: No suspicious findings in the lung bases. The liver, spleen, and pancreas show no suspicious findings. Gallbladder was surgically removed. Symmetric renal function is seen with no hydronephrosis or suspicious renal mass. No dilated bowel loops or bowel wall thickening. Extensive colonic diverticulosis. No free air, free fluid or inflammatory stranding. Small right inguinal hernia containing fat. No suspicious mass or bu lky lymphadenopathy. The urinary bladder is without significant finding. Tortuosity with fusiform aneurysmal dilation of the mid abdominal aorta measuring 2.9 cm in caliber, stable. No suspicious bony findings. IMPRESSION: No acute intra-abdominal process. Incidental findings including colonic diverticulosis, and a stable fusiform abdominal aortic aneurysm .
[2022-12-08] MEDS ORDERED: MAGNESIUM HYDROXIDE 8% 30 ML PO PRN (11:41)
[2022-12-08] MEDS ORDERED: ACETAMINOPHEN 500 MG TAB PO PRN (11:41)
--- NOTE | 2022-12-08 11:56 | P.HP ---
Certification for Inpatient With expected LOS: >2 Midnights Patient will require the following post-hospital care: None Practitioner: I am a practitioner with admitting privileges, knowledge of patient current condition, hospital course, and medical plan of care. Services: Services provided to patient in accordance with Admission requirements found in Title 42 Section 412.3 of the Code of Federal Regulations Patient History Date of Service: 12/08/22 Reason for admission: GI bleed History of Present Illness: Hannah Wick is a 72-year-old female past medical history of hypertension, diverticulitis, coronary artery disease, CT requiring heart catheterization on plavix. She has presented to the ED with complaints of "pooping blood clots" x4 this morning, headache, weakness, and chills. Hannah reports bleeding due to diverticulitis. Patient lives at home with her grandson who was at the bedside. Initial blood pressure 128/73, heart rate 99, on room air satting 95%, afebr ile. CT abdomen pelvis reveals colonic diverticulosis , incidentally there was found a stable fusiform abdominal aortic aneurysm measuring 2.9 cm and a small right inguinal hernia containing fat. While in the ED patient received Flagyl, and a bolus dose of normal saline of 500 mls, and an additional 1000 mils normal saline at 125 mils per hour. Patient will be admitted for further evaluation and treatment of diverticulitis. Last dose of plavix was this morning 12/08. Allergies Penicillins Allergy (Severe, Verified 01/16/21 12:16) Hives Home Medications: Omeprazole [Prilosec] 40 mg PO DAILY 04/21/20 Simvastatin 40 mg PO BEDTIME 04/21/20 Cinacalcet HCl 60 mg PO DAILY 12/18/20 carvediloL [Carvedilol] 6.25 mg PO BID 12/18/20 Loratadine [Claritin] 10 mg PO DAILYPRN PRN 01/16/21 - Past Medical/Surgical History Diabetic: No -: Hypertension -: Hyperlipidemia -: Arthritis -: HTN -: hyperlipedema -: polyps in colon & stomach 2017 -: tonsilectomy -: 05/02 rt sling rectocele repair, cystoscopy -: Cholecystectomy Psychosocial/ Personal History: Patient is single - Family History Mother -: Hypertension, Cancer Notes: father, mother sister and a brother all had cancer - Social History Alcohol use: No CD- Drugs: No Caffeine use: Yes Review of Systems General: Chills Eyes: Unremarkable ENT: Unremarkable Respiratory: Unremarkable Cardiovascular: Unremarkable Gastrointestinal: Abdominal Pain, Hematochezia Genitourinary: Unremarkable Musculoskeletal: Unremarkable Integumentary: Unremarkable Neurological: Weakness Physical Examination - Physical Exam General: Alert, In no apparent distress, Oriented x3 HEENT: Atraumatic, Normocephalic, PERRLA Neck: Supple, 2+ carotid pulse no bruit, JVD not distended Respiratory: Clear to auscultation bilaterally, Normal air movement Cardiovascular: No edema, Normal pulses, Regular rate/rhythm Capillary refill: <2 Seconds Gastrointestinal: Normal bowel sounds Musculoskeletal: No clubbing, No swelling, No contractures Integumentary: No rashes, No breakdown Neurological: Normal gait, Normal speech, Normal strength at 5/5 x4 extr - Studies Laboratory Data (last 24 hrs) 12/08/22 12/08/22 12/08/22 09:07 09:07 09:07 WBC 8.30 Hgb 11.7 L Hct 34.2 L Plt Count 256 PT 10.8 INR 0.98 Sodium 140 Potassium 4.0 BUN 10 Creatinine 0.99 Glucose 105 Magnesium 2.3 Total Bilirubin 0.4 AST 13 L ALT 15 Alkaline Phosphatase 109 Lipase 38 Assessment and Plan - Plan Assessment and PLan Acute diverticulitis with bloody stool -H/H 11.7/34.2 -CT abd/pelvis shows extensive diverticulosis -ED gave flagyl and IVF bolus with maintenance dose -continue IVF -NPO- monitor for hypoglycemia -Rocephin and continue flagyl -consulted Dr. Browne -hold home plavix last dose (12/08) h/o CAD s/p heart catheterizaton -restart medications when appropriate. -statin, asa, plavix, coreg- will hold for now -last dose of plavix this AM (12/08) Abdominal Aortic Aneurysm -CT revealed "Tortuosity with fusiform aneurysmal dilation of the mid abdominal aorta measuring 2.9 cm in caliber, stable" -Will follow up as outpatient DVT ppx: SCD Full code LOS > 2days Discharge Plan: Home Plan to discharge in: Greater than 2 days - Advance Directives Does patient have a Living Will: No Does patient have a Durable POA for Healthcare: No Time Spent Managing Pts Care (In Minutes): 55
[2022-12-08] MEDS: NA CHLORIDE 0.9% 1,000 ML IV SCH ×2 (15:30→21:06)
[2022-12-08] MEDS: METRONIDAZOLE 500mg IVPB 500 MG/100 ML BAG IV SCH (17:00)
[2022-12-08 17:55] VITALS: BMI 21.4
[2022-12-08] MEDS: CEFTRIAXONE 1,000 MG in NA CHLORIDE 0.9% 50 ML IVPB SCH (20:38)
[2022-12-09] MEDS: METRONIDAZOLE 500mg IVPB 500 MG/100 ML BAG IV SCH ×3 (01:07→16:49)
[2022-12-09 04:05] LABS: Absolute Lymphocytes (CBC) 2.2 K/uL (0.7-4.9); Lymphocytes % 31.4 % (15.3-44.8); MCV 85.8 fL (80-100); MPV 8.4 fL (7.6-11.3); Platelets 198 thou/uL (152-406); RBC Red Blood Cell Count 3.15 M/uL (3.86-4.86)
[2022-12-09 04:19] LABS: Phosphorus 2.1 mg/dL (2.5-4.9); Potassium 3.5 mEq/L (3.5-5.1)
--- NOTE | 2022-12-09 05:25 | P.PN ---
Date of Service: 12/09/22 Subjective: Pt is doing well with no new complaints. Physical Exam: Vitals: reviewed GEN: Alert, oriented, NAD CV: Regular rate & rhythm, no edema Pulm: Nonlabored respiraitons, clear bilaterally ABD: Soft, nontender, nondistended MSK: No joint tenderness Neuro: No focal deficits Problem List: Acute diverticulitis with bloody stool h/o CAD s/p heart catheterizaton Abdominal Aortic Aneurysm PLAN -aggressive IV hydration -IV antibiotics -outpatient colonoscopy -pain controlled -stool studies -monitor for possible perforation -surgery consultation if pain does not improve -CT abdomen pelvis pending
[2022-12-09] MEDS: NA CHLORIDE 0.9% 1,000 ML IV SCH ×2 (08:54→20:20)
[2022-12-09] MEDS: CEFTRIAXONE 1,000 MG in NA CHLORIDE 0.9% 50 ML IVPB SCH ×2 (08:56→20:18)
[2022-12-09] MEDS ORDERED: POTASS/SODIUM PHOSPHATE 1 PKT POWD.PACK PO ONE (09:00)
[2022-12-09] MEDS ORDERED: POTASSIUM CL SA 10 MEQ TAB PO ONE (09:00)
[2022-12-09] MEDS ORDERED: BISACODYL E.C. 5 MG TAB PO ONE (09:33)
[2022-12-09] MEDS: METOCLOPRAMIDE 10 MG/2mL INJ IV SCH ×3 (10:49→22:55)
[2022-12-09] MEDS ORDERED: MAGNESIUM CITRATE 300 ML BOT PO SCH (13:00)
[2022-12-09] MEDS ORDERED: GOLYTELY 4000 ML PO SCH (14:00)
--- NOTE | 2022-12-09 16:51 | EKG ---
Test Date: 2022-12-08 Test Time: 09:34:30 Bodybuilder: JESSICA MEASUREMENT RESULTS: Intervals: Rate: 45 UT: 188 QRSD: 82 QT: 414 QTc: 358 [place]: P: 61 UT: 188 QRS: 18 T: 29 INTERPRETIVE STATEMENTS: Marked sinus bradycardia Abnormal ECG Compared to ECG 06/18/2021 22:24:27 No significant changes Electronically Signed On 12-09-22 16:48:33 CDT by Ottoniel Lopez
[2022-12-10] MEDS: METRONIDAZOLE 500mg IVPB 500 MG/100 ML BAG IV SCH ×3 (00:03→19:19)
[2022-12-10 03:10] LABS: Absolute Lymphocytes (CBC) 2.6 K/uL (0.7-4.9); Lymphocytes % 34.6 % (15.3-44.8); MCV 85.7 fL (80-100); MPV 8.7 fL (7.6-11.3); Platelets 206 thou/uL (152-406); RBC Red Blood Cell Count 3.04 M/uL (3.86-4.86)
[2022-12-10 03:27] LABS: Magnesium 2.1 mg/dL (1.6-2.4); Phosphorus 1.9 mg/dL (2.5-4.9); Potassium 3.3 mEq/L (3.5-5.1)
[2022-12-10] MEDS: KCL 20 MEQ/100 mL IVPB 20 MEQ/100 ML BAG IV SCH ×2 (03:53→06:00)
[2022-12-10] MEDS: NA CHLORIDE 0.9% 1,000 ML IV SCH ×2 (03:54→14:00)
--- NOTE | 2022-12-10 08:37 | CON ---
Date of Consultation: 12/09/2022 Reason For Consultation: Hematochezia with anemia. History Of Present Illness: The patient is a 72-year-old female with history of hypertensio n, hyperlipidemia, arthritis, colon polyps, diverticulosis, coronary artery disease, status post OK, status post heart catheterization on Plavix. The patient presented to the emergency room with GI ble eding with "popping" blood clots x4 in the morning prior to admission with headache, weakness, and ch ills. She thinks she has a history of diverticular bleed in the past. CT of the abdomen reveals ext ensive colonic diverticulosis and a 2.9 cm AAA. She has been on Plavix since she heart ca theterization. The patient reports that she had a possible TIA and was placed on Plavix due to the T IA. Her last dose was yesterday. The patient states that the blood which was large amount initially has slowed down since admission to the hospital. Her hemoglobin has slowly decreased from 11.7 down to 9.3 as well. Past Medical History: Significant for hypertension, hyperlipidemia, arthritis, colon polyps, tonsill ectomy, laparoscopic cholecystectomy, rectocele repair, coronary artery disease, status post OK accor ding to the chart, though the patient states that she had a TIA and therefore she is on the Plavix. She denies any cardiac stents. Home Medications: Include Prilosec, Zocor, , Coreg 6.25 mg b.i.d., and Claritin. Allergies: TO PENICILLIN, GIVES HER HIVES. Social History: She has 4 children. She says she has never officially , though she probably had common-law marriage and she lived with for more than 6 months. She reports she never has smoked. No alcohol history. Family History: Father of cancer of unknown type. Mother of stomach cancer of unknown typ e. Also had hypertension. Her sister and 2 brothers also of cancer of unknown type, possibly i n the stomach or abdomen area, she is not sure. Review of Systems: She had hematochezia with some mild weakness. She denies any melena, hematemesis, coffee-ground emes is, hematuria, dysuria, polyuria, polydipsia, epistaxis, hemoptysis, or other type of blood. She den ies any depression, anxiety, muscle aches, joint aches, backaches, chest pain, shortness of breath, s eizure, syncope, lower extremity edema, rashes, hiccups, and other. Physical Examination: Vital Signs: She is 5 feet 4 inches, 125 pounds. BMI 21.5 kg/sq m. She had a temperature of 97.3 d egrees Fahrenheit, pulse 64, respirations 16, blood pressure 120/67, O2 saturation 96%. General: She is a slightly obese female, lying in bed, in no acute distress. HEENT: Normocephalic, atraumatic. Anicteric. Pupils equally round and reactive to light. Extraocu lar movements are intact. Oropharynx is clear. Neck: Supple. No masses. Respirations: Clear to auscultation bilaterally. Cardiac: Regular rate and rhythm. Gastrointestinal: Positive bowel sounds. Soft, nondistended. She did have some tenderness that she reports has been ongoing since this began in the right and left lower quadrant area, is mild. No pe ritoneal sign. No rebound. Extremities: No clubbing, cyanosis, or edema. 2+ pulses. Neurologic: Alert and oriented x3. Grossly nonfocal. 5/5 motor strength. Sensation intact to ligh t touch. Laboratory Data: The patient has hemoglobin 11.7, down to 10.6, now down to 9.3 since admission. Wh ite count of 7.0, MCV of 96, platelet count of 198, polys of 59%, lymphocytes 31%, monocytes 7%, eosi nophils 2%. PT of 10.8, INR of 0.98. Sodium 140, potassium 3.5, chloride 110, bicarb 26, BUN of 9, creatinine of 0.8, glucose 97, calcium 7.7, phosphorus 2.1, magnesium 2.0, total bilirubin 0.4, direc t bilirubin 0.1, AST of 13, ALT of 15, alkaline phosphatase 109. Troponin I of 6. B-type natriureti c peptide of 266. Total protein 6.8, albumin 3.0, lipase 38. UA showed trace blood, otherwise negat vipin. CT abdomen and pelvis revealed extensive colonic diverticulosis and a 2.9 cm abdominal aortic a neurysm. Impression: 1.Hematochezia, probably from diverticular bleed. The patient reports prior diverticular bleed in t he past. CT reveals extensive colonic diverticulosis with a 2.9 cm area. The patient also reports c olonoscopy on her last bleed that happened, but . So, there is no prior colonoscopy. She is on Plavix for possible transient ischemic attack in the past. The chart says she had a cardiac ca , but the patient denies any cath or stents placed 4 months ago. Her last Plavix was . 2.History of anemia with hemoglobin from 11.7 down to 9.3 now. 3.Abdominal aortic aneurysm, size of 2.9 cm. 4.History of hypertension, hyperlipidemia, arthritis, colon polyps, tonsillectomy, cholecystectomy, rectocele repair, and others per above. Recommendations: 1.Continue serial H and H and transfuse p.r.n. 2.Hold Plavix. 3.Consider platelet transfusion. 4.Proceed with colon prep and colonoscopy urgently. 5.Continue IV fluids. 6.Please also consider bleeding scan. SUREKHA/SYLVIA Voice ID: [id number] Report ID: [id number]
[2022-12-10] MEDS ORDERED: propofoL 200 MG/20 ML VIAL IV ONE (09:35)
[2022-12-10] MEDS ORDERED: LIDOCAINE 1% MPF 5 ML VIAL ONE (09:35)
[2022-12-10] MEDS ORDERED: EPINEPHRINE/PF 1 MG/ML AMP ONE (09:36)
[2022-12-10] MEDS ORDERED: POTASSIUM PHOS IN 0.9 % NACL 15 MMOL/250 ML BAG IV ONE (10:00)
[2022-12-10] MEDS: CEFTRIAXONE 1,000 MG in NA CHLORIDE 0.9% 50 ML IVPB SCH ×2 (11:59→20:45)
[2022-12-10] MEDS ORDERED: HEPARIN 500 UNIT/5 ML SYR IV ONE (12:58)
--- NOTE | 2022-12-10 16:01 | RAD REPORT ---
EXAM DESCRIPTION: NM - GI Blood Loss Imaging - 12/10/2022 3:51 pm CLINICAL HISTORY: sp colonoscopy, gi bleed GI bleeding COMPARISON: Abdomen Pelvis W Contrast dated 12/08/2022 FINDINGS: The patient was administered 27.4 millicuries technetium 99 M labeled right blood cells. No evidence of active GI bleeding during the examination is seen. IMPRESSION: Negative study.
[2022-12-10 20:08] VITALS: O2SAT 97
[2022-12-10] MEDS ORDERED: POTASSIUM CL SA 10 MEQ TAB PO ONE (22:39)
[2022-12-11] MEDS: NA CHLORIDE 0.9% 1,000 ML IV SCH ×2 (00:46→10:00)
[2022-12-11] MEDS: METRONIDAZOLE 500mg IVPB 500 MG/100 ML BAG IV SCH ×2 (00:46→12:46)
[2022-12-11 06:53] LABS: Absolute Lymphocytes (CBC) 2.3 K/uL (0.7-4.9); Hematocrit 26.1 % (36.0-45.0); Lymphocytes % 38.7 % (15.3-44.8); MCV 86.6 fL (80-100); MPV 8.4 fL (7.6-11.3); Platelets 196 thou/uL (152-406); RBC Red Blood Cell Count 3.02 M/uL (3.86-4.86)
[2022-12-11 07:03] LABS: Protime INR 1.07
[2022-12-11 07:36] LABS: Albumin 2.7 g/dL (3.4-5.0); Bilirubin Total 0.3 mg/dL (0.2-1.0); Phosphorus 1.6 mg/dL (2.5-4.9); Potassium 3.8 mEq/L (3.5-5.1)
[2022-12-11] MEDS ORDERED: CYANOCOBALAMIN 1000MCG/ML INJ IM ONE (09:01)
[2022-12-11] MEDS ORDERED: SOD FERRIC GLUC COMPLX/SUCROSE 125 MG in NA CHLORIDE 0.9% 100 ML IV SCH (10:00)
[2022-12-11] MEDS: CEFTRIAXONE 1,000 MG in NA CHLORIDE 0.9% 50 ML IVPB SCH (10:07)
[2022-12-11 16:22] VITALS: BP 141/72; TEMP 98.2
== END 2022-12-11 16:50 | disposition home or self-care (01) | DRG 379 ==
LOC: ER 08:42 → ERHOLD 11:41 → 2ND 19:21
PROVIDERS: ADMIT Internal Medicine Sleep Medicine; ATTEND Hospitalist
PROC: 0DJD8ZZ Inspection of Lower Intestinal Tract, Via Natural or Artificial Opening Endoscopic (ICD-10-PCS; principal; 2022-12-10 09:15)
DX: K57.31 Diverticulosis of large intestine without perforation or abscess with bleeding (principal); I10 Essential (primary) hypertension; E78.5 Hyperlipidemia, unspecified; K64.8 Other hemorrhoids; M19.90 Unspecified osteoarthritis, unspecified site; I71.40 Abdominal aortic aneurysm, without rupture, unspecified; I25.2 Old myocardial infarction; I25.10 Atherosclerotic heart disease of native coronary artery without angina pectoris; Z88.8 Allergy status to other drugs, medicaments and biological substances; Z88.0 Allergy status to penicillin; Z79.02 Long term (current) use of antithrombotics/antiplatelets; Z90.49 Acquired absence of other specified parts of digestive tract; Z79.899 Other long term (current) drug therapy
CPT/HCPCS: 36415; 71045; 74177; 78278; 80048; 80053; 80076; 81001; 82607; 83540; 83690; 83735; 83880; 84100; 84132; 84484; 85018; 85025; 85044; 85610; 85730; 86850; 86900; 86901; 93005; 96361; 96365; 96367; 99285; A9560; J0171; J0696; J0744; J1642; J2001; J2704; J2765; J2916; J3420; J3480; J7030; Q9967